=== PATIENT | male | born 1950 | race Caucasian/White ===

== ENCOUNTER → 2017-09-04 | Outpatient (CLI) | payer MEDICARE ==
[~2017-09-04] MED LIST: AMLO2.5T PO; LISI40TA PO; METF1000 PO; PLAV75TA29 PO; SIMV20TA PO
[2017-09-04 11:04] LABS: AUTOMATED NEUTROPHIL # 5.7 TH/MM3 (1.8-7.7); BASOPHIL # 0.1 TH/MM3 (0-0.2); BASOPHIL % 0.7 % (0.0-2.0); EOSINOPHIL # 0.3 TH/MM3 (0-0.4); EOSINOPHIL % 4.2 % (0.0-4.0); HEMATOCRIT 39.4 % (39.0-51.0); HEMO FLAGS DIFF FINAL; LYMPH % 19.6 % (9.0-44.0); LYMPHOCYTE # 1.6 TH/MM3 (1.0-4.8); MEAN CELL VOLUME 94.4 FL (80.0-100.0); MEAN CORPUSCULAR HEMOGLOBIN 32.1 PG (27.0-34.0); MONO % 5.5 % (0.0-8.0); PLATELET COUNT 251 TH/MM3 (150-450); RED BLOOD COUNT 4.18 MIL/MM3 (4.50-5.90); RED CELL DISTRIBUTION WIDTH 13.2 % (11.6-17.2); WHITE BLOOD COUNT 8.2 TH/MM3 (4.0-11.0)
[2017-09-04 11:12] LABS: BLOOD, URINE NEG (NEG); COMMENT (UR) CULT NOT INDICATED; CULTURE IF INDICATED CULT NOT INDICATED; GLUCOSE,URINE NEG (NEG); KETONE, URINE NEG (NEG); NITRITE,URINE NEG (NEG); PH, URINE 5.5 (5.0-8.5); URINE COLOR YELLOW (YELLW/STRAW)
[2017-09-04 11:17] LABS: APTT (PATIENT) 27.2 SEC (24.3-30.1); PROTHROMBIN TIME - PATIENT 10.5 SEC (9.8-11.6)
[2017-09-04 11:39] LABS: ALT (GPT) 25 U/L (12-78); ANION GAP 6 MEQ/L (5-15); AST (GOT) 13 U/L (15-37); BICARBONATE 30.1 MEQ/L (21.0-32.0); BLOOD UREA NITROGEN 22 MG/DL (7-18); CHLORIDE 104 MEQ/L (98-107); GLOMERULAR FILTRATION RATE 66 ML/MIN (>89); GLUCOSE,FASTING 133 MG/DL (74-99); POTASSIUM 4.1 MEQ/L (3.5-5.1); SODIUM (NA) 140 MEQ/L (136-145)
[2017-09-04 11:40] LABS: ALKALINE PHOSPHATASE 102 U/L (45-117); TOTAL BILIRUBIN ADULT 0.4 MG/DL (0.2-1.0)
--- NOTE | 2017-09-04 12:26 | RADRPT ---
EXAM DATE/TIME: 09/04/2017 12:07 [place] COMPARISON: No previous studies available for comparison. INDICATIONS : Pre-op. Colon Resection MEDICAL HISTORY : None. SURGICAL HISTORY : None. ENCOUNTER: Initial ACUITY: 1 day PAIN SCORE: 0/10 LOCATION: Bilateral chest FINDINGS: PA and lateral views of the chest demonstrate the lungs to be symmetrically aerated without evidence of mass, infiltrate or effusion. The cardiomediastinal contours are unremarkable. Evidence of previo us cardiothoracic surgery. Osseous structures are intact. CONCLUSION: No acute disease. Sukhdeep Rubio MD on September 04, 2017 at 12:25 Board Certified Radiologist. This report was verified electronically.
--- NOTE | 2017-09-05 10:05 | EKG ---
Date Performed: 09/04/2017 Time Performed: 10:58:51 PTAGE: 66 years EKG: Sinus rhythm MARKED LEFT AXIS DEVIATION INTRAVENTRICULAR CONDUCTION DELAY ABNORMAL ECG NO PREVIOUS TRACING DOCTOR: Brayden Ramirez Interpretating Date/Time 09/05/2017 10:05:06
== END ==
LOC: CPRE 10:31
PROVIDERS: ATTEND Colon & Rectal Surgery
DX: Z01.810 Encounter for preprocedural cardiovascular examination (principal); Z01.811 Encounter for preprocedural respiratory examination; Z01.812 Encounter for preprocedural laboratory examination; Z79.01 Long term (current) use of anticoagulants; C20 Malignant neoplasm of rectum; R94.31 Abnormal electrocardiogram [ECG] [EKG]
CPT/HCPCS: 36415; 71020; 80053; 81001; 82378; 85025; 85610; 85730; 93005

== ENCOUNTER 2017-09-11 10:35 | Inpatient (IN) | payer MEDICARE ==
[~2017-09-11] VITALS: Ht 180.3 cm; Wt 75.6 kg
[2017-09-11] MEDS ORDERED: MIDAZOLAM HCL 2 MG/2 ML VIAL IV ONE (12:00)
[2017-09-11] MEDS ORDERED: ROCURONIUM INJ 50 MG/5 ML SYRINGE IV PUSH ONE (12:00)
[2017-09-11] MEDS ORDERED: LACTATED RINGER'S 1000 ML INJ 1,000 ML IV ONE (12:00)
[2017-09-11] MEDS ORDERED: ePHEDrine/NS 25 MG/5 ML SYR IV ONE (12:00)
[2017-09-11] MEDS ORDERED: DEXAMETHASONE SOD PHOS 4 MG/ML VIAL IV ONE (12:00)
[2017-09-11] MEDS ORDERED: NORMOSOL R INJ 3,000 ML IV ONE (12:00)
[2017-09-11] MEDS ORDERED: LIDOCAINE HCL 1% PF 5 ML AMPULE OTHER ONE (12:00)
[2017-09-11] MEDS ORDERED: PROPOFOL 200 MG/20 ML AMP IV ONE (12:00)
[2017-09-11] MEDS ORDERED: ONDANSETRON HCL 4 MG/2 ML VIAL IV PUSH ONE (12:00)
[2017-09-11] MEDS ORDERED: LACTATED RINGER'S 1000 ML IV PRN (12:15)
[2017-09-11] MEDS ORDERED: INSULIN HUMAN REGULAR 1,000 UNITS/10 ML VIAL SQ PRN (12:15)
[2017-09-11] MEDS ORDERED: METOPROLOL TARTRATE 25 MG TAB PO PRN (12:15)
[2017-09-11] MEDS ORDERED: SODIUM CHLORID 0.9% 500 ML IV PRN (12:15)
[2017-09-11] MEDS ORDERED: POVIDONE IODINE 5% (ANTISEPSIS KIT) 4 APPLICATIONS EACH NARE PRN (12:15)
[2017-09-11] MEDS ORDERED: CHLORHEXIDINE GLUCONATE 2 % 1 PACK (2 CLOTHS) TOPICAL PRN (12:15)
[2017-09-11] MEDS ORDERED: ceFAZolin 1,000 MG/NS 100 ML IV SCH ×2 (12:30)
[2017-09-11] MEDS ORDERED: DEXT 5%-NACL 0.9% 1000 ML INJ 1,000 ML IV SCH (12:30)
[2017-09-11] MEDS ORDERED: ALVIMOPAN 12 MG CAPSULE - On Call PO SCH (12:30)
[2017-09-11] MEDS ORDERED: METRONIDAZOLE 500 MG/100 ML ISONTONIC SOLN IV SCH (12:30)
--- NOTE | 2017-09-11 13:05 | PD.HP.UP ---
H&P Update Note The Pre-Admit History and Physical Examination regarding the above named patient was reviewed (including, but not limited to, vital signs, heart, lungs, co-morbid conditions), and upon re-examination it is noted that: the patient's condition has not significantly changed since the last examination. Jose Lane MD Sep 11, 2017 13:05
[2017-09-11] MEDS ORDERED: BUPIVACAINE HCL PF 0.5% 30 ML VIAL ONE ×5 (13:56→13:58)
[2017-09-11] MEDS ORDERED: ACETAMINOPHEN 1000 MG/100 ML 100 ML IV ONE (15:07)
[2017-09-11] MEDS ORDERED: HYDROmorphone HCL PF 2 MG/ML VIAL ONE (15:07)
[2017-09-11] MEDS ORDERED: SUGAMMADEX SODIUM 200 MG/2 ML VIAL IV PUSH ONE ×2 (15:07)
--- NOTE | 2017-09-11 15:35 | PD.OP ---
Operative Report Date of Surgery: Sep 11, 2017 Preoperative Diagnosis: rectal cancer with history of prostate cancer Postoperative Diagnosis: Same Procedure: Cystoscopy with bilateral ureteral catheter placement Anesthesia: ELIU Surgeon: JeanC laude Henson Otolaryngology Teacher(s): None Resident Surgeon: None Operation and Findings: 66-year-old male with diagnosis of rectal cancer and prostate cancer. Patient was undergoing for to her laparotomy with resection by Dr. Lane. Request for made for bilateral ureteral catheter placement. The patient was brought to the operating room placed in the dorsal lithotomy position. He was prepped and draped in usual sterile fashion, received preprocedure antibiotics and general endotracheal anesthesia was administered. 20 Yemeni scope was inserted in the bladder and the left ureteral orifice was identified for Yemeni opening catheter was inserted in the left ureteral orifice. This was repeated on the right side without difficulty. 16 Yemeni Greco was inserted and the catheters were attached to the Greco. He tolerated the procedure well. Jean Claude Henson DO Sep 11, 2017 15:35
[2017-09-11] MEDS ORDERED: BENZOCAINE 6 MG/MENTHOL 10 MG LOZENGE BUCCAL PRN (17:15)
[2017-09-11] MEDS ORDERED: ENALAPRILAT 2.5 MG/2 ML VIAL IV PUSH PRN (17:15)
[2017-09-11] MEDS ORDERED: ACETAMINOPHEN/HYDROcodone 325 MG/5 MG TAB PO PRN (17:15)
[2017-09-11] MEDS ORDERED: ONDANSETRON HCL 4 MG/2 ML VIAL IV PUSH PRN (17:15)
[2017-09-11] MEDS ORDERED: POTASSIUM CHLOR 40 MEQ PREMIX 100 ML IV PRN (17:15)
[2017-09-11] MEDS ORDERED: NALOXONE HCL 0.4 MG/ML AMP IV PUSH PRN (17:15)
[2017-09-11] MEDS ORDERED: SODIUM CHLORIDE 0.9% FLUSH 5 ML FLUSH IVF PRN (17:15)
[2017-09-11] MEDS ORDERED: POTASSIUM CHLOR 20 MEQ PREMIX 100 ML IV PRN (17:15)
[2017-09-11] MEDS ORDERED: ACETAMINOPHEN 325 MG TAB PO PRN (17:15)
[2017-09-11] MEDS ORDERED: Post-op Orders (for Pharmacy) MISC XX ONE (17:15)
--- NOTE | 2017-09-11 17:15 | HHI.PR ---
Immediate Post Op Note Procedure Date: Sep 11, 2017 Pre Op Diagnosis: Rectal cancer Post Op Diagnosis: same Surgeon: Jose Lane Outdoor Landscape Architect(s): Marcelo Procedure: Expl lap + APR, omental flap Findings: ulcerated cancer ant rectal wall, sign RT fibrosis along prostate plane liver/GB normal Complications: none Specimen(s) removed: rectaosigm/anal canal Estimated blood loss: 200cc Anesthesia: General Drains: None, [place] IVF Patient to: PACU Patient Condition: Good Jose Lane MD Sep 11, 2017 17:15
[2017-09-11] MEDS ORDERED: HYDROmorphone HCL PF 1 MG/ML VIAL ONE (17:27)
[2017-09-11] MEDS ORDERED: MORPHINE SULFATE 30 MG/30 ML PCA ONE (17:36)
[2017-09-11] MEDS ORDERED: *morphine SULFATE 8 MG/ML PERIprocedure ONLY ONE ×2 (17:37→17:47)
[2017-09-11] MEDS: D5-NS + KCL 20 MEQ INJ 1,000 ML IV SCH ×2 (17:41→23:43)
[2017-09-11] MEDS: MORPHINE SULFATE 30 MG/30 ML PCA IV SCH (17:42)
[2017-09-11] MEDS ORDERED: PILL SPLITTER OTHER PRN (17:45)
[2017-09-11] MEDS ORDERED: MORPHINE SULFATE 8 MG/ML INJ ONE (17:56)
[2017-09-11] MEDS ORDERED: *HYDROmorphone PF 1 MG VIAL PERIprocedural Use ONLY ONE ×2 (18:09→18:22)
[2017-09-11] MEDS ORDERED: *ENALAPRILAT 1.25 MG/ML VIAL PERIprocedural Use ONLY ONE (18:23)
[2017-09-11] MEDS ORDERED: KETOROLAC TROMETHAMINE 30 MG/ML (IVP) VIAL IVP PRN (19:00)
[2017-09-11] MEDS ORDERED: BUPIVACAINE HCL PF 0.5% 30 ML VIAL NB SCH (19:00)
[2017-09-11 19:20] VITALS: BP 143/83; PULSE 87; PULSE 92; RESP 16; TEMP 98.1; O2SAT 98
[2017-09-11 20:15] VITALS: PULSE 86
[2017-09-11] MEDS: METOCLOPRAMIDE HCL 10 MG/2 ML VIAL IVS SCH (20:40)
[2017-09-11] MEDS: SODIUM CHLORIDE 0.9% FLUSH 5 ML FLUSH IVF SCH (20:40)
[2017-09-11 21:00] VITALS: PULSE 86
[2017-09-11 22:00] VITALS: PULSE 92
[2017-09-11] MEDS: PCA - TOTAL MG MORPHINE DELIVERED PER SHIFT SCH (22:00)
[2017-09-11 23:00] VITALS: PULSE 93
[2017-09-11] MEDS: metroNIDAZOLE 500 MG INJ 100 ML IV SCH (23:00)
[2017-09-11 23:15] VITALS: BP 157/81; PULSE 93; RESP 16; TEMP 97.9; O2SAT 97
[2017-09-11] MEDS: ENALAPRILAT 1.25 MG/ML VIAL IV PUSH PRN (23:24)
[2017-09-12] VITALS (24 sets, daily range): BP systolic 155–168; BP diastolic 81–93; PULSE 82–98; RESP 17–19; TEMP 97.4–98.2; O2SAT 93–99
[2017-09-12 05:17] LABS: AUTOMATED NEUTROPHIL # 15.3 TH/MM3 (1.8-7.7); BASOPHIL % 0.1 % (0.0-2.0); HEMATOCRIT 40.3 % (39.0-51.0); HEMO FLAGS DIFF FINAL; LYMPH % 2.9 % (9.0-44.0); LYMPHOCYTE # 0.5 TH/MM3 (1.0-4.8); MEAN CELL VOLUME 95.6 FL (80.0-100.0); MEAN CORPUSCULAR HEMOGLOBIN 31.8 PG (27.0-34.0); MEAN CORPUSCULAR HGB CONC 33.3 % (32.0-36.0); MONO % 4.5 % (0.0-8.0); NEUT % 92.5 % (16.0-70.0); PLATELET COUNT 262 TH/MM3 (150-450); RED BLOOD COUNT 4.22 MIL/MM3 (4.50-5.90); RED CELL DISTRIBUTION WIDTH 13.4 % (11.6-17.2); WHITE BLOOD COUNT 16.5 TH/MM3 (4.0-11.0)
[2017-09-12 05:43] LABS: POTASSIUM 4.1 MEQ/L (3.5-5.1)
[2017-09-12] MEDS: PCA - TOTAL MG MORPHINE DELIVERED PER SHIFT SCH ×3 (05:58→21:47)
[2017-09-12] MEDS: metroNIDAZOLE 500 MG INJ 100 ML IV SCH ×2 (06:22→15:48)
[2017-09-12] MEDS: METOCLOPRAMIDE HCL 10 MG/2 ML VIAL IVS SCH ×2 (08:32→20:40)
[2017-09-12] MEDS: PANTOPRAZOLE SODIUM 40 MG VIAL IVP SCH (08:34)
[2017-09-12] MEDS: PANTOPRAZOLE SOD 40 MG DELAYED RELEASE TAB PO SCH (08:34)
[2017-09-12] MEDS: SODIUM CHLORIDE 0.9% FLUSH 5 ML FLUSH IVF SCH ×2 (08:40→20:40)
[2017-09-12] MEDS: ALVIMOPAN 12 MG CAPSULE - Post-op dosing PO SCH ×2 (08:44→20:40)
[2017-09-12] MEDS: amLODIPine BESYLATE 5 MG TAB PO SCH (08:44)
[2017-09-12] MEDS: LISINOPRIL 20 MG TAB PO SCH (08:45)
[2017-09-12] MEDS: D5-NS + KCL 20 MEQ INJ 1,000 ML IV SCH (08:46)
[2017-09-12] MEDS: MORPHINE SULFATE 30 MG/30 ML PCA IV SCH (08:50)
--- NOTE | 2017-09-12 12:08 | HHI.PR ---
Subjective Remarks C/R Surg POD #1 afebrile, VSS UO Good [place] min Objective - Vital Signs Date Time Temp Pulse Resp B/P (MAP) Pulse Ox O2 Delivery O2 Flow Rate FiO2 09/12/17 11:04 86 18 155/82 (106) 95 09/12/17 07:12 Nasal Cannula 1.00 09/12/17 07:00 98.2 Result Diagram: 09/12/176 09/12/17435 Objective Remarks PE alert Abd - soft, flat, stoma pink, HP mod A/P Assessment and Plan Imp: Stable post-op OOB decr IVF stent dc'd tx to floor Jose Lane MD Sep 12, 2017 12:08
[2017-09-12] MEDS ORDERED: DEXTROSE 50% IN WATER 50 ML VIAL(D50) IV PUSH PRN (12:15)
[2017-09-12] MEDS ORDERED: GLUCAGON 1 MG/ML VIAL OTHER PRN (12:15)
[2017-09-12] MEDS: NS + KCL 20 MEQ INJ 1,000 ML IV SCH ×2 (12:21→23:47)
--- NOTE | 2017-09-12 13:21 | MP ---
cc: HILARY GARCIA M.D. DATE OF SURGERY: September 11, 2017 PREOPERATIVE DIAGNOSIS Rectal cancer. PROCEDURE PERFORMED Exploratory laparotomy with abdominal perineal resection, omental flap. POSTOPERATIVE DIAGNOSIS Rectal cancer. SURGEON Dr. Garcia. CORPORATE LOGISTICS MANAGER Dr. Tony Robertson. PROCEDURE The patient was placed in the supine position. After adequate anesthesia sedation his legs were placed in [place] stirrups and supported appropriately. The abdomen and perineum were then prepped with Betadine solution and draped in usual sterile fashion. With Dr. Robertson's assistance the abdomen was opened through a midline incision. Exploration revealed a very looping redundant sigmoid colon. There was a tumor palpable below the perineal reflection anteriorly. Radiation fibrosis was also present in the pelvis. Proximal colon was palpated and felt to be pretty unremarkable. Small bowel was run from ligament of Treitz down to ileocecal valve and felt to be normal. Stomach and duodenum were unremarkable. Liver had no palpable masses and the gallbladder was empty but distended. Great vessels were of normal caliber and only slightly calcified. First the sigmoid colon was mobilized medially by dividing along the white line of Toldt. The left ureter was identified and carefully preserved. Dissection then proceeded up the left gutter taking the left colon off the retroperitoneum up to and around the area of the splenic flexure. The right retroperitoneal space was then opened and the bowel dissected off the presacral fascia preserving the presacral nerves. The pedicle for the superior hemorrhoidal vessel was identified and divided between Idalia's obtaining hemostasis with Vicryl ties. Dissection then proceeded down into the pelvis mobilizing the bowel off the presacral fascia toward the pelvic floor. The lateral rectal stalks were taken with electrocautery. The pelvic floor muscles were incised and the bowel mobilized up out of the anal canal as far distally as possible. Anteriorly there was quite a bit of fibrosis between the anterior rectal wall where the rectal tumor was and the seminal vesicles and the prostate capsule. Required somewhat of a tedious dissection to get below this area. The bowel did not appear to be very soft and somewhat fibrotic from years of radiation change. Therefore, it was determined distal margin below the tumor was difficult and anastomosis would probably not be possible. For that reason Dr. Robertson went to the perineal aspect of the patient and completed the proctectomy by making elliptical incision around the anal sphincter, taking the dissection through the ischiorectal spaces, entering the pelvis at the tip of the coccyx and then completing the proctectomy taking the lateral attachments with electrocautery anteriorly, somewhat difficult dissection taking the anterior rectal wall off the prostatic capsule in the region of the tumor. The bowel was then divided in the midsigmoid colon using the ROBINSON stapling device. The remaining mesenteric attachments taken between Idalia's, obtaining hemostasis with Vicryl ties and the specimen delivered through the perineal incision. Abdomen was then irrigated copiously with normal saline. Dr. Robertson closed the perineal incision in several layers using interrupted Vicryl sutures for the muscles and then the subcu tissues as well as subcuticular closure for the skin. Next, the omentum was taken off the transverse colon, entering the lesser sac and making a long flap out of the omentum to reach the pelvis, there was quite a bit of omentum to fill the pelvis quite nicely. The pelvis was then irrigated again and hemostasis achieved. Circular stab wound was created in the left side of the abdomen and the end of the sigmoid colon brought up through the stab wound without tension and with good blood supply. The midline incision was closed anatomically reapproximating the midline fascia with a running #1 PDS suture. The subcutaneous tissue was irrigated copiously and the skin closed with a running subcuticular Vicryl suture. Wound area was washed with normal saline and dried, sterile dressing of Telfa and gauze applied. Finally the ROBINSON staple line was removed from the end of the sigmoid colon and the stoma matured in the usual Indira fashion by placing a row of interrupted Chromic catgut sutures around the circumference. At completion the stoma did appear to be viable and was patent through the fascial level. Sterile colostomy appliance was fitted over the new stoma. The patient tolerated the procedure quite well and was brought to the recovery room in stable condition. Sponge and needle counts were correct at the end of the procedure. MD JOSH Mann/JAZMIN /12:22 PM /1:08 PM
[2017-09-12] MEDS: HEPARIN SODIUM - SQ 10,000 UNITS/ML VIAL SQ SCH (15:48)
--- NOTE | 2017-09-12 16:57 | PD.WCN.NOT ---
Wound Consult Description: Consult placed for New Ostomy Teaching of stoma per Dr Lane Communicated with: Patient Patients at bedside Recommendation: Empty pouch of effluent when 1/3-1/2 full and before bedtime Change appliance every 5-7 days and PRN Additional Information: Patient seen on for Ostomy teaching and assessment. Ostomy Type: Colostomy Surgeon: Jose Lane MD Date of Surgery: Sep 11, 2017 Complete: Education materials Educated patient on: Stoma appearance Stoma function Skin care Ostomy supplies Showering Changing the appliance Opening and closing the pouch Attaching the pouch to the wafer Additional information Patient seen on for Ostomy assessment and teaching. Colostomy noted to left lower quadrant of abdomen. Stoma is dark red, moist, edematous, moderately protruding, lumen noted in center with ~20ml sanguinous liquid noted in pouch. Barrier and wafer are intact. Educational materials were given and left in patient room for reading later. All questions were answered and encouraged to write down any questions that they may come up with so that we could discuss them tomorrow 09/13/17. Supplied were taken from the box provided for patient and his to practice with. Chiara Padilla [facility] Sep 12, 2017 16:57
[2017-09-12] MEDS: INSULIN NovoLIN REGULAR SUPPLEMENTAL SCALE SQ SCH ×2 (17:00→21:00)
[2017-09-12] MEDS ORDERED: ALVIMOPAN 12 MG CAPSULE PO SCH (21:00)
[2017-09-12] MEDS: ENALAPRILAT 1.25 MG/ML VIAL IV PUSH PRN (23:46)
[2017-09-13] VITALS (20 sets, daily range): BP systolic 152–168; BP diastolic 77–88; PULSE 75–101; RESP 16–19; TEMP 98.2–99.1; O2SAT 93–95
[2017-09-13] MEDS: HEPARIN SODIUM - SQ 10,000 UNITS/ML VIAL SQ SCH ×2 (04:20→16:03)
[2017-09-13] MEDS: ENALAPRILAT 1.25 MG/ML VIAL IV PUSH PRN (04:20)
[2017-09-13] MEDS: PCA - TOTAL MG MORPHINE DELIVERED PER SHIFT SCH ×3 (05:11→21:35)
[2017-09-13 05:33] LABS: AUTOMATED NEUTROPHIL # 13.6 TH/MM3 (1.8-7.7); BASOPHIL % 0.1 % (0.0-2.0); HEMATOCRIT 34.8 % (39.0-51.0); HEMO FLAGS DIFF FINAL; LYMPH % 5.6 % (9.0-44.0); LYMPHOCYTE # 0.9 TH/MM3 (1.0-4.8); MEAN CORPUSCULAR HEMOGLOBIN 31.6 PG (27.0-34.0); MEAN CORPUSCULAR HGB CONC 33.7 % (32.0-36.0); MONO % 6.3 % (0.0-8.0); PLATELET COUNT 243 TH/MM3 (150-450); RED CELL DISTRIBUTION WIDTH 13.6 % (11.6-17.2); WHITE BLOOD COUNT 15.5 TH/MM3 (4.0-11.0)
[2017-09-13 06:05] LABS: BICARBONATE 25.4 MEQ/L (21.0-32.0); POTASSIUM 3.5 MEQ/L (3.5-5.1)
--- NOTE | 2017-09-13 07:39 | HHI.PR ---
Subjective Remarks C/R Surg POD #2 afebrile, VSS UO Good [place] min stent dc'd Objective - Vital Signs Date Time Temp Pulse Resp B/P (MAP) Pulse Ox O2 Delivery O2 Flow Rate FiO2 09/13/17 07:00 94 09/13/17 05:11 18 09/13/17 03:00 98.3 160/88 (112) 93 09/12/17 07:12 Nasal Cannula 1.00 Result Diagram: 09/13/1744309/13/17443 Objective Remarks PE alert Abd - soft, flat, stoma pink, HP less wound clean/dry A/P Assessment and Plan Imp: OOB decr IVF stent dc'd tx to floor start PO Jose Lane MD Sep 13, 2017 07:39
[2017-09-13] MEDS: amLODIPine BESYLATE 5 MG TAB PO SCH (09:00)
[2017-09-13] MEDS: INSULIN NovoLIN REGULAR SUPPLEMENTAL SCALE SQ SCH ×4 (09:00→21:00)
[2017-09-13] MEDS: LISINOPRIL 20 MG TAB PO SCH (09:00)
[2017-09-13] MEDS: SODIUM CHLORIDE 0.9% FLUSH 5 ML FLUSH IVF SCH ×2 (09:00→21:00)
[2017-09-13] MEDS: PANTOPRAZOLE SOD 40 MG DELAYED RELEASE TAB PO SCH (09:00)
[2017-09-13] MEDS: ALVIMOPAN 12 MG CAPSULE - Post-op dosing PO SCH ×2 (09:00→21:37)
[2017-09-13] MEDS: METOCLOPRAMIDE HCL 10 MG/2 ML VIAL IVS SCH ×2 (09:01→21:34)
[2017-09-13] MEDS: PANTOPRAZOLE SODIUM 40 MG VIAL IVP SCH (09:01)
[2017-09-13] MEDS: NS + KCL 20 MEQ INJ 1,000 ML IV SCH ×3 (09:02→23:54)
[2017-09-13] MEDS: ACETAMINOPHEN/HYDROcodone 325 MG/5 MG TAB PO PRN ×3 (11:11→21:43)
--- NOTE | 2017-09-13 17:22 | PD.WCN.NOT ---
Wound Consult Description: Consult placed for New Ostomy Teaching of stoma per Dr Lane Communicated with: Patient Recommendation: Empty pouch of effluent when 1/3-1/2 full and before bedtime Change appliance every 5-7 days and PRN Additional Information: Patient seen on for Ostomy assessment, teaching, and appliance (wafer/ pouch) change. Ostomy Type: Colostomy Surgeon: Jose Lane MD Date of Surgery: Sep 11, 2017 Complete: Starter kit (Obtained verbal consent for [facility] starter kit to be sent to patient home), Education materials ([employer] box left in patient room for education and practice using supplies), Rx (Script left on chart), Other ( Appliance change with patient observing) Educated patient on: Measuring stoma Stoma appearance Changing appliance Cleansing skin around stoma with water Shaving with electric shaver Using skin prep Using stoma paste near incision line Warming wafer before and after application Open ended pouches vs closed ended pouches Additional information Patient seen on for ostomy assessment, teaching, and appliance change. Stoma located on left side abdomen is measuring 1 3/4" red, moist, edematous, moderately protruding, lumen noted in center towards 6 o'clock, mucocutaneous junction is noted with circumferential sutures in place with scant sanguinous drainage. Peristomal skin is unremarkable. Pouch had ~20ml sanguinous liquid and mucus noted that was emptied by copy writer. Wafer was removed, skin was cleansed with water only. Skin prep was applied to peristomal skin and allowed to dry. Stoma paste was used near midline incision to help further secure the wafer to abdomen. Patient will be seen Sunday09/14/17. Script was left on chart for case management and for discharge. Appliances in size 2 3/4" are not available at this time to send patient home with. Chiara Padilla [facility] Sep 13, 2017 17:22
[2017-09-14] VITALS (7 sets, daily range): BP systolic 128–169; BP diastolic 63–88; PULSE 66–96; RESP 16–22; TEMP 96.6–99.6; O2SAT 93–95
[2017-09-14] MEDS: ACETAMINOPHEN/HYDROcodone 325 MG/5 MG TAB PO PRN ×3 (05:30→18:13)
[2017-09-14] MEDS: HEPARIN SODIUM - SQ 10,000 UNITS/ML VIAL SQ SCH ×2 (05:30→16:55)
[2017-09-14] MEDS: PCA - TOTAL MG MORPHINE DELIVERED PER SHIFT SCH ×3 (05:32→20:56)
[2017-09-14] MEDS: PANTOPRAZOLE SOD 40 MG DELAYED RELEASE TAB PO SCH (09:00)
[2017-09-14] MEDS: SODIUM CHLORIDE 0.9% FLUSH 5 ML FLUSH IVF SCH ×2 (09:00→21:00)
[2017-09-14] MEDS: PANTOPRAZOLE SODIUM 40 MG VIAL IVP SCH (09:00)
[2017-09-14] MEDS: METOCLOPRAMIDE HCL 10 MG/2 ML VIAL IVS SCH (09:03)
[2017-09-14] MEDS: amLODIPine BESYLATE 5 MG TAB PO SCH (09:04)
[2017-09-14] MEDS: ALVIMOPAN 12 MG CAPSULE - Post-op dosing PO SCH ×2 (09:04→20:54)
[2017-09-14] MEDS: LISINOPRIL 20 MG TAB PO SCH (09:04)
[2017-09-14] MEDS: INSULIN NovoLIN REGULAR SUPPLEMENTAL SCALE SQ SCH ×4 (09:06→20:56)
[2017-09-14] MEDS: NS + KCL 20 MEQ INJ 1,000 ML IV SCH (13:33)
--- NOTE | 2017-09-14 15:04 | PD.WCN.NOT ---
Wound Consult Description: Consult placed for New Ostomy Teaching of stoma per Dr Lane Communicated with: Patient Patient at bedside QUOC Alan SHRIMP CLEANER Recommendation: Empty pouch of effluent when 1/3-1/2 full and before bedtime Change appliance every 5-7 days and PRN Additional Information: Patient seen earlier today*Late entry* Ostomy Type: Colostomy Surgeon: Jose Lane MD Date of Surgery: Sep 11, 2017 Complete: Starter kit (Obtained verbal consent for [facility] starter kit to be sent to patient home), Education materials ([employer] box left in patient room for education and practice using supplies), Rx (Script left on chart), Other ( Appliance change with patient observing) Educated patient on: Stoma size Stoma color and function Removing barrier with adhesive removal wipes Assessing back side of wafer Assessing peristomal skin for breakdown Measuring stoma for correct use of appliance Warming barrier prior to application by placing under arm or thigh with plastic still in place Applying barrier to abdomen and then applying closed pouch to barrier Emptying pouch when 1/3- 1/2 full, before bedtime, and first thing in the morning Setting alarm for mid way through the night to check on appliance for air and stool Using resources available for obtaining appliances, trouble shooting, and any questions they may have regarding stoma/peristomal skin care Additional information Patient seen on for ostomy assessment and teaching. Upon entering room, patient gown was soiled with a light brown exudate. Gown was lifted with patient at bedside and the drain located on the anterior lower abdomen was covered in a soaked dressing. The drain was pulled from his gown pocket and found to be full. QUOC Alan was called and notified of the soaked dressing and full bulb which was emptied by ticket writer and left in bathroom for I&O's. SHRIMP CLEANER came in and emptied the bulb again as it was quickly filling. Stoma was assessed and barrier was intact with some sanguinous drainage noted to be dried on the bottom part and edge of the surrounding tape located around the barrier. Appliance was just changed yesterday and assessed today and found to be intact. It was explained that the tape could be cut away so that the entire appliance did not need to be changed again. Stoma size is measuring 1 3/4" requiring a wafer size of 2 3/4" however the supplies are on back order and none are available at this time. Supplies will have to be obtained through the home health care agency as there are no supplies to send home with patient at this time. There was a kit sent to the patient home with 3 wafers and 3 pouches that will be delivered via 2 day air. 4" cut to fit appliance ordered should the wafer need to be changed prior to discharge. Chiara Padilla [facility] Sep 14, 2017 15:04
--- NOTE | 2017-09-14 19:19 | HHI.FF ---
Face to Face Verification Diagnosis: (1) Rectal cancer Physical Therapy Order: Evaluate and Treat, Improve ambulation, Strength and gait training Home Health Nursing Order: Medical education Signs/symptoms of disease process Wound care and dressing changes Instructions: stoma teaching I have seen patient Ethan Dowell on 09/14/17. My clinical findings support the need for the requested home health care services because: Deconditioned w/ increased weakness Need for psychosocial assistance Infection w/ risk of complications I certify that my clinical findings support that this patient is homebound because: Post-op weakness Unsafe to leave home unassisted Need for psychosocial assistance Jose Lane MD Sep 14, 2017 19:19
[2017-09-14] MEDS ORDERED: METOCLOPRAMIDE HCL 10 MG/2 ML VIAL IVS PRN (19:30)
--- NOTE | 2017-09-14 22:54 | HHI.PR ---
Subjective Remarks C/R Surg POD #3 afebrile, VSS UO Good [place] min stoma working Objective - Vital Signs Date Time Temp Pulse Resp B/P (MAP) Pulse Ox O2 Delivery O2 Flow Rate FiO2 09/14/17 20:57 98.6 96 18 169/88 (115) 95 09/12/17 07:12 Nasal Cannula 1.00 Result Diagram: 09/13/1744309/13/17443 Objective Remarks PE alert Abd - soft, flat, stoma pink, [place] less wound clean/dry A/P Assessment and Plan Imp: OOB decr IVF start PO path discussed Jose Lane MD Sep 14, 2017 22:54
[2017-09-15] VITALS: BP 152/95; PULSE 84; RESP 18; TEMP 99.1; O2SAT 93
[2017-09-15] MEDS: NS + KCL 20 MEQ INJ 1,000 ML IV SCH ×2 (03:43→20:27)
[2017-09-15] MEDS: HEPARIN SODIUM - SQ 10,000 UNITS/ML VIAL SQ SCH ×2 (03:45→17:00)
[2017-09-15 04:00] VITALS: BP 163/93; PULSE 83; RESP 18; TEMP 98.4; O2SAT 94
[2017-09-15] MEDS: PCA - TOTAL MG MORPHINE DELIVERED PER SHIFT SCH ×3 (04:58→20:33)
[2017-09-15 08:00] VITALS: BP 128/70; PULSE 75; RESP 18; TEMP 96; O2SAT 94
[2017-09-15] MEDS: INSULIN NovoLIN REGULAR SUPPLEMENTAL SCALE SQ SCH ×4 (08:35→20:45)
[2017-09-15] MEDS: SODIUM CHLORIDE 0.9% FLUSH 5 ML FLUSH IVF SCH ×2 (08:36→20:34)
[2017-09-15] MEDS: PANTOPRAZOLE SOD 40 MG DELAYED RELEASE TAB PO SCH (08:38)
[2017-09-15] MEDS: LISINOPRIL 20 MG TAB PO SCH (08:46)
[2017-09-15] MEDS: ALVIMOPAN 12 MG CAPSULE - Post-op dosing PO SCH ×2 (08:46→20:33)
[2017-09-15] MEDS: PANTOPRAZOLE SODIUM 40 MG VIAL IVP SCH (08:46)
[2017-09-15] MEDS: amLODIPine BESYLATE 5 MG TAB PO SCH (08:47)
[2017-09-15 12:00] VITALS: BP 124/78; PULSE 84; RESP 17; TEMP 95.8; O2SAT 95
[2017-09-15 16:00] VITALS: BP 141/77; PULSE 77; RESP 17; TEMP 97.8; O2SAT 93
[2017-09-15 20:00] VITALS: BP 148/80; PULSE 75; RESP 20; TEMP 99.4; O2SAT 95
[2017-09-15] MEDS: ACETAMINOPHEN/HYDROcodone 325 MG/5 MG TAB PO PRN (20:33)
[2017-09-16] VITALS: BP 106/71; PULSE 83; RESP 18; TEMP 98.4; O2SAT 96
[2017-09-16] MEDS: HEPARIN SODIUM - SQ 10,000 UNITS/ML VIAL SQ SCH (04:57)
[2017-09-16] MEDS: PCA - TOTAL MG MORPHINE DELIVERED PER SHIFT SCH (04:59)
[2017-09-16 08:00] VITALS: BP 152/82; PULSE 69; RESP 17; TEMP 96.8; O2SAT 95
[2017-09-16] MEDS: SODIUM CHLORIDE 0.9% FLUSH 5 ML FLUSH IVF SCH (09:00)
[2017-09-16] MEDS: ALVIMOPAN 12 MG CAPSULE - Post-op dosing PO SCH (09:49)
[2017-09-16] MEDS: PANTOPRAZOLE SOD 40 MG DELAYED RELEASE TAB PO SCH (09:49)
[2017-09-16] MEDS: INSULIN NovoLIN REGULAR SUPPLEMENTAL SCALE SQ SCH (09:49)
[2017-09-16] MEDS: LISINOPRIL 20 MG TAB PO SCH (09:50)
[2017-09-16] MEDS: amLODIPine BESYLATE 5 MG TAB PO SCH (09:50)
[2017-09-16] MEDS: PANTOPRAZOLE SODIUM 40 MG VIAL IVP SCH (09:52)
== END 2017-09-16 13:04 | disposition home health service (06) | DRG 331 ==
LOC: HSDI 11:46 → HCPC 19:05 → N07B 09-14 01:28
PROVIDERS: ADMIT Colon & Rectal Surgery; ATTEND Colon & Rectal Surgery
PROC: 0DTQ0ZZ Resection of Anus, Open Approach (ICD-10-PCS; 2017-09-11)
PROC: 0D1N0Z4 Bypass Sigmoid Colon to Cutaneous, Open Approach (ICD-10-PCS; 2017-09-11)
PROC: 0WUF07Z Supplement Abdominal Wall with Autologous Tissue Substitute, Open Approach (ICD-10-PCS; 2017-09-11)
PROC: 0T788DZ Dilation of Bilateral Ureters with Intraluminal Device, Via Natural or Artificial Opening Endoscopic (ICD-10-PCS; 2017-09-11)
PROC: 0DTP0ZZ Resection of Rectum, Open Approach (ICD-10-PCS; principal; 2017-09-11 14:45)
PROC: 0DTN0ZZ Resection of Sigmoid Colon, Open Approach (ICD-10-PCS; 2017-09-11 14:45)
DX: C20 Malignant neoplasm of rectum (principal); I10 Essential (primary) hypertension; Z85.46 Personal history of malignant neoplasm of prostate; E78.5 Hyperlipidemia, unspecified; I25.10 Atherosclerotic heart disease of native coronary artery without angina pectoris; E11.9 Type 2 diabetes mellitus without complications; K63.89 Other specified diseases of intestine; Z95.5 Presence of coronary angioplasty implant and graft; Z79.84 Long term (current) use of oral hypoglycemic drugs; Z87.891 Personal history of nicotine dependence; Z95.1 Presence of aortocoronary bypass graft; Y84.2 Radiological procedure and radiotherapy as the cause of abnormal reaction of the patient, or of later complication, without mention of misadventure at the time of the procedure; Z92.3 Personal history of irradiation
CPT/HCPCS: 80048; 82948; 85025; 86850; 86900; 86901; 88309; 94150; C1769; C9113; J0131; J0690; J1100; J1170; J1644; J2250; J2270; J2405; J2765; J3010; J3480; J7120

== ENCOUNTER 2018-05-09 10:13 | Inpatient (IN) ==
--- NOTE | 2018-05-09 11:38 | ED ---
HPI General Chief Complaint: Respiratory Symptoms Stated Complaint: SOB Time Seen by Provider: 05/09/18 11:32 Source: patient Mode of arrival: ambulatory Limitations: no limitations History of Present Illness The patient is a 67-year-old male who presents to the emergency department for shortness of breath. The patient states he has had recent shortness of breath that is worse with lying supine as well as exacerbated by exertion. The patient had a recent outpatient CT of the chest which revealed bilateral pleural effusions, right greater than the left. The patient also had a CT of his abdomen and pelvis which revealed recurrent rectal cancer with possible metastasis to liver. The patient states he underwent surgery for rectal cancer in August 2017 by his colorectal surgeon, Dr. Lane. The patient states that he was notified to come to the emergency department for admission for drainage of the right pleural effusion and possible biopsy of the recurrent rectal mass. The patient denies any previous history congestive heart failure or pleural effusions. He does note shortness of breath worse with exertion and lying supine. He denies any significant cough or anterior chest pain. He denies any nausea or vomiting. He does have a diverting colostomy. The patient is followed by his rectal surgeon, Dr. Lane, as well as his primary physician, Dr. Eleanor May. Complaint: shortness of breath Onset (ago): day(s) Context: occurred during exertion Severity: moderate Consistency/Duration: progressively worsening Relieving factors: nothing Exacerbating factors: lying flat Associated symptoms: orthopnea Treatment prior to arrival: none Related Data Home Medications Medication Instructions Recorded Confirmed clopidogrel [Plavix] 75 mg PO DAILY 05/09/18 05/09/18 metformin 1,000 mg PO BID 05/09/18 05/09/18 simvastatin 20 mg PO QPM 05/09/18 05/09/18 Allergies Allergy/AdvReac Type Severity Reaction Status Date / Time No Known Allergies Allergy Verified 05/09/18 11:25 Review of Systems Except as stated in HPI: all other systems reviewed are negative Constitutional Denies fever(s) Cardiovascular Denies chest pain, Reports dyspnea on exertion and Reports orthopnea Respiratory Reports dyspnea Gastrointestinal Denies abdominal pain, Denies nausea, Denies vomiting and Reports other ( Diverting colostomy from previous surgery for rectal carcinoma) PMFSH Medical History Medical History Brain tumor (Acute) CVA (cerebral vascular accident) (Acute) Colostomy in place (Acute) Hyperlipidemia (Acute) Hypertension (Acute) Prostate cancer (Acute) Rectal cancer (Acute) Type 2 diabetes mellitus (Acute) Surgical History Surgical History H/O resection of rectum (Acute) S/P triple vessel bypass (Acute) Social History Social History Substance History: No History of Abuse Smoking Status: Former smoker How Often Do You Have a Drink Containing Alcohol: Monthly or less Recent Travel in [facility] within the Last 8 Weeks: No Recent Out of Country Travel within the Last 8 Weeks: No Immunization History Tetanus Immunization: >5 Years Exam Narrative Exam Narrative: GENERAL: Awake, alert, very pleasant 67-year-old male who appears his stated age and is in no acute respiratory distress. SKIN: Focused skin assessment warm/dry. HEAD: Atraumatic. Normocephalic. EYES: No injection or drainage. ENT: No nasal bleeding or discharge. Mucous membranes pink and moist. NECK: Trachea midline. No JVD. CARDIOVASCULAR: Regular rate and rhythm. No murmur appreciated. Well-healed sternal scar. RESPIRATORY: No accessory muscle use. Diminished breath sounds in the right base. Slightly diminished breath sounds left base with rhonchi. GASTROINTESTINAL: Abdomen soft, diverting colostomy noted. Abdomen soft. MUSCULOSKELETAL: No obvious deformities. No clubbing. No cyanosis. No edema. Well-healed scar lower extremity, possibly from vein harvesting. NEUROLOGICAL: Awake and alert. No obvious cranial nerve deficits. Motor grossly within normal limits. Normal speech. PSYCHIATRIC: Appropriate mood and affect; insight and judgment normal. Course Consultations Consultation #1: I discussed the patient with Dr. Lane who requested admission to his service in consultation to Dr. Marmolejo. Time: 11:45 Initial Documented Vital Signs Temperature 97.5 F L 05/09/18 10:21 Pulse Rate 74 05/09/18 10:21 Respiratory Rate 16 05/09/18 10:21 Blood Pressure 117/68 05/09/18 10:21 Pulse Oximetry 97 05/09/18 10:21 Last Documented Vital Signs Temperature 97.5 F L 05/09/18 10:21 Pulse Rate 72 05/09/18 11:33 Respiratory Rate 17 05/09/18 11:33 Blood Pressure 142/88 H 05/09/18 11:33 Pulse Oximetry 95 05/09/18 11:33 Medical Decision Making MDM Narrative Medical decision making narrative: IV was established, labs are drawn and sent, and the patient was placed on cardiac telemetry monitoring and continuous pulse oximetry monitoring. I went to radiology, I was able to see the formal readings of the CT chest and abdomen/pelvis that was performed earlier this month. The patient did have bilateral pleural effusions, right greater than the left. He appear to have a recurrent perirectal mass with possible liver metastasis. Therefore, chest x-ray was obtained. I placed a call to Dr. Lane 's office and spoke with the nurse who advises the patient should be off of his Plavix for possible biopsy. The patient is also scheduled for thoracentesis tomorrow at 8 AM, this may be done sooner by interventional radiology. The patient stopped taking his Plavix last Sunday, he is advised not to take Plavix for possible upcoming procedures. The patient is agreeable. I discussed the patient with Dr. Lane at 11:45 AM who requested admission to his service with consultation to Dr. Marmolejo. I placed orders for interventional radiology to perform ultrasound-guided thoracentesis with fluid cell count Differential Diagnosis Differential Diagnosis: Differential diagnosis includes rectal carcinoma with metastasis, malignant pleural effusion, transudate of pleural effusion, exudative pleural effusion, congestive heart failure, cardiomyopathy, pneumonia with parapneumonic effusion, pulmonary metastasis. Lab Data Result diagrams: 05/09/18 11:30 05/09/18 11:30 Lab Results 05/09/18 05/09/18 05/09/18 Range/Units 11:30 11:30 11:30 WBC 6.7 (4.0-11.0) th/mm3 RBC 4.03 L (4.50-5.90) mil/mm3 Hgb 12.9 L (13.0-17.0) gm/dL Hct 37.2 L (39.0-51.0) % MCV 92.5 (80.0-100.0) fL MCH 32.1 (27.0-34.0) pg MCHC 34.7 (32.0-36.0) % RDW 13.9 (11.6-17.2) % Plt Count 257 (150-450) th/mm3 MPV 8.2 (7.0-11.0) fL Neut % (Auto) 62.7 (16.0-70.0) % Lymph % (Auto) 20.9 (9.0-44.0) % [place] % (Auto) 8.0 (0.0-8.0) % Eos % (Auto) 6.7 H (0.0-4.0) % Baso % (Auto) 1.7 (0.0-2.0) % Neut # (Auto) 4.2 (1.8-7.7) th/mm3 Lymph # (Auto) 1.4 (1.0-4.8) th/mm3 [place] # (Auto) 0.5 (0.0-0.9) th/mm3 Eos # (Auto) 0.5 H (0.0-0.4) th/mm3 Baso # (Auto) 0.1 (0.0-0.2) th/mm3 WBC Differential . Differential Comment Auto diff final PT 10.6 (9.8-11.6) sec INR 1.0 Ratio APTT 26.8 (24.3-30.1) sec Sodium 142 (136-145) meq/L Potassium 3.6 (3.5-5.1) meq/L Chloride 106 (98-107) meq/L Carbon Dioxide 26.4 (21.0-32.0) meq/L Anion Gap 10 (5-15) meq/L BUN 25 H (7-18) mg/dL Creatinine 1.29 (0.60-1.30) mg/dL Estimated GFR 56 L (>89) mL/min Random Glucose 153 H (74-106) mg/dL Calcium 9.0 (8.5-10.1) mg/dL Magnesium 2.1 (1.5-2.5) mg/dL Total Bilirubin 0.5 (0.2-1.0) mg/dL AST 21 (15-37) U/L ALT 32 (12-78) U/L Alkaline Phosphatase 118 H (45-117) U/L Troponin I 0.03 (0.02-0.05) ng/mL B-Natriuretic Peptide (0-100) pg/mL Total Protein 7.2 (6.4-8.2) g/dL Albumin 3.9 (3.4-5.0) g/dL 05/09/18 Range/Units 11:30 WBC (4.0-11.0) th/mm3 RBC (4.50-5.90) mil/mm3 Hgb (13.0-17.0) gm/dL Hct (39.0-51.0) % MCV (80.0-100.0) fL MCH (27.0-34.0) pg MCHC (32.0-36.0) % RDW (11.6-17.2) % Plt Count (150-450) th/mm3 MPV (7.0-11.0) fL Neut % (Auto) (16.0-70.0) % Lymph % (Auto) (9.0-44.0) % [place] % (Auto) (0.0-8.0) % Eos % (Auto) (0.0-4.0) % Baso % (Auto) (0.0-2.0) % Neut # (Auto) (1.8-7.7) th/mm3 Lymph # (Auto) (1.0-4.8) th/mm3 [place] # (Auto) (0.0-0.9) th/mm3 Eos # (Auto) (0.0-0.4) th/mm3 Baso # (Auto) (0.0-0.2) th/mm3 WBC Differential Differential Comment PT (9.8-11.6) sec INR Ratio APTT (24.3-30.1) sec Sodium (136-145) meq/L Potassium (3.5-5.1) meq/L Chloride (98-107) meq/L Carbon Dioxide (21.0-32.0) meq/L Anion Gap (5-15) meq/L BUN (7-18) mg/dL Creatinine (0.60-1.30) mg/dL Estimated GFR (>89) mL/min Random Glucose (74-106) mg/dL Calcium (8.5-10.1) mg/dL Magnesium (1.5-2.5) mg/dL Total Bilirubin (0.2-1.0) mg/dL AST (15-37) U/L ALT (12-78) U/L Alkaline Phosphatase (45-117) U/L Troponin I (0.02-0.05) ng/mL B-Natriuretic Peptide 867 H (0-100) pg/mL Total Protein (6.4-8.2) g/dL Albumin (3.4-5.0) g/dL Imaging Data Radiologist's impression: ITS Impressions Chest X-Ray 05/09/18 11:32 CONCLUSION: Status post CABG. Borderline heart enlargement. No evidence of significant congestion or consolidating airspace disease. Discharge Plan Discharge Disposition Patient Disposition: 30 Still Patient Discharge Condition Condition: Stable Discharge Details Diagnosis: Pleural effusion Physicians Team ED Provider: Margarito Gardiner Primary Care Provider: ZOË, Other Providers: Chema Marmolejo Rxs /Orders / Referrals /Forms Prescriptions: No Action clopidogrel [Plavix] 75 mg Tablet 75 mg PO DAILY RF: 0 metformin 1,000 mg Tablet 1,000 mg PO BID RF: 0 simvastatin 20 mg Tablet 20 mg PO QPM RF: 0 Status ED Status: With Doctor
[2018-05-09 11:49] LABS: Baso # (Auto) 0.1 th/mm3 (0.0-0.2); Baso % (Auto) 1.7 % (0.0-2.0); Eos # (Auto) 0.5 th/mm3 (0.0-0.4); Eos % (Auto) 6.7 % (0.0-4.0); Hematocrit 37.2 % (39.0-51.0); Hemoglobin 12.9 gm/dL (13.0-17.0); Lymph # (Auto) 1.4 th/mm3 (1.0-4.8); Lymph % (Auto) 20.9 % (9.0-44.0); Mean Corpuscular HGB Conc 34.7 % (32.0-36.0); Mean Corpuscular Hemoglobin 32.1 pg (27.0-34.0); Mean Corpuscular Volume 92.5 fL (80.0-100.0); Mean Platelet Volume 8.2 fL (7.0-11.0); Mono # (Auto) 0.5 th/mm3 (0.0-0.9); Neut # (Auto) 4.2 th/mm3 (1.8-7.7); Neut % (Auto) 62.7 % (16.0-70.0); Platelet Count 257 th/mm3 (150-450); Red Blood Count 4.03 mil/mm3 (4.50-5.90); Red Cell Distribution Width 13.9 % (11.6-17.2); White Blood Count 6.7 th/mm3 (4.0-11.0)
[2018-05-09 12:00] LABS: Activated Partial Thrombo Time 26.8 sec (24.3-30.1); Prothrombin Time 10.6 sec (9.8-11.6)
[2018-05-09 12:06] LABS: Alanine Aminotransferase 32 U/L (12-78); Albumin 3.9 g/dL (3.4-5.0); Anion Gap 10 meq/L (5-15); Aspartate Aminotransferase 21 U/L (15-37); Blood Urea Nitrogen 25 mg/dL (7-18); Carbon Dioxide 26.4 meq/L (21.0-32.0); Chloride 106 meq/L (98-107); Glomerular Filtration Rate 56 mL/min (>89); Glucose,Random 153 mg/dL (74-106); Magnesium 2.1 mg/dL (1.5-2.5); Potassium 3.6 meq/L (3.5-5.1); Sodium 142 meq/L (136-145)
[2018-05-09 12:10] LABS: Alkaline Phosphatase 118 U/L (45-117); Total Protein 7.2 g/dL (6.4-8.2); Troponin I 0.03 ng/mL (0.02-0.05)
--- NOTE | 2018-05-09 12:13 | XR ---
EXAM DATE: 05/09/2018 12:07 PM EDT AGE/SEX: 67 years / Male INDICATIONS: Short of breath. CLINICAL DATA: This is the patient's initial encounter. Patient reports that signs and symptoms have been present for 3 months and indicates a pain score of 2/10. MEDICAL/SURGICAL HISTORY: Carcinoma, rectal. CABG. COMPARISON: [facility] [place], CHEST PA & LAT, 09/04/2017. . FINDINGS: Heart is at the upper limits of normal in size. Median sternotomy wires are noted. Lungs are free of significant congestion. There is no evidence of acute airspace disease. Osseous structures are intact. CONCLUSION: Status post CABG. Borderline heart enlargement. No evidence of significant congestion or consolidating airspace disease. Electronically signed by: Hiram Sparks MD 05/09/2018 12:12 PM EDT
--- NOTE | 2018-05-09 14:38 | P.RAD ---
Post Procedure Progress Note - Pre Procedure Diagnosis (1) Pleural effusion - Post Procedure Diagnosis (1) Pleural effusion - Procedure Information Supervising Radiologist: Hiram Sparks MD Anesthesia: Local - Plan of Activity Patient to Unit: Other Patient Condition: Good See PACS Report for procedural detail/treatment. Drainage Procedure Ultrasound right Thoracentesis Y[place]ut Tube Size: 6 Drainage: Suction Fluid Description: Clear, Red
[2018-05-09] MEDS ORDERED: Lidocaine PF 1% Inj 30 ML Vial ONE (14:51)
--- NOTE | 2018-05-09 15:24 | XR ---
EXAM DATE: 05/09/2018 3:09 PM EDT AGE/SEX: 67 years / Male INDICATIONS: Status post right side thoracentesis. CLINICAL DATA: This is the patient's initial encounter. Patient reports that signs and symptoms have been present for 1 day and indicates a pain score of 0/10. MEDICAL/SURGICAL HISTORY: Carcinoma, rectal. CABG. COMPARISON: [facility], CHEST 1V SINGLE AP, 05/09/2018. . FINDINGS: A single frontal expiratory view of the chest was performed. There is prominence of the central pulm onary vasculature with indistinct vascular margins compatible with vascular congestion but no evidenc e of overt failure. There is no evidence of pneumothorax. Median sternotomy wires are present. Media stinal structures are in the midline. There is no evidence of pneumothorax. CONCLUSION: No evidence of pneumothorax following thoracentesis. Electronically signed by: Lucio Koehler MD 05/09/2018 3:23 PM EDT
--- NOTE | 2018-05-09 16:12 | US ---
EXAM DATE: 05/09/2018 3:37 PM EDT AGE/SEX: 67 years / Male INDICATIONS: Right pleural effusion. CLINICAL DATA: This is the patient's initial encounter. Patient reports that signs and symptoms have been present for 1 month and indicates a pain score of 2/10. MEDICAL/SURGICAL HISTORY: Hypertension. Diabetes mellitus type II. CVA. Hyperlipidemia. Prosta te cancer. Rectal cancer. Colostomy. Colon resection. CABG. Brain tumor. COMPARISON: [facility], CHEST EXPIRATION ONLY, 05/09/2018. . FLUID: Total volume of 900 cc of clear, red fluid was removed. Fluid was sent to lab for ordered studies. . . TECHNIQUE: Ultrasound guidance for thoracentesis. Thoracentesis. The risks, benefits, and alternatives to ultrasound guided thoracentesis were explained to the patien t in lay simple terms, including the risk of bleeding and infection. Written and verbal informed con sent was obtained. Appropriate area for right thoracentesis was marked under ultrasound guidance with the patient in the upright position. Overlying skin was prepped and draped in the usual sterile fashion and with local anesthetic, a dermatotomy was made with an 11 blade scalpel. A 6 Romanian thoracentesis catheter was placed in the pleural space and fluid was removed. Catheter was then removed and a sterile dressing applied. There were no immediate complications. The patient tolerated the procedure well and the lef t the ultrasound suite in stable condition. Chest radiograph is to be obtained. CONCLUSION: Uncomplicated right thoracentesis. Electronically signed by: Hiram Sparks MD 05/09/2018 4:11 PM EDT
[2018-05-09 16:29] LABS: Glucose,Pleural Fluid 142 mg/dL; LDH,Pleural Fluid 114 U/L
[2018-05-09 16:36] LABS: Total Protein,Pleural Fluid 2.6 gm/dL
[2018-05-09 16:44] LABS: Amylase,Pleural Fluid ND U/L
[2018-05-09 17:13] LABS: Eosinophils,Pleural Fluid 1 %; Lymphocytes,Pleural Fluid 81 %; Mesothelial,Pleural Fluid 8 %; Neutrophils,Pleural Fluid 2 %
[2018-05-09 17:15] LABS: RBC,Pleural Fluid 13988 /mm3 (0-0)
--- NOTE | 2018-05-09 22:34 | MB ---
cc: Chema Marmolejo MD, Andrew H MD DATE: 05/09/2018 REASON FOR CONSULTATION: Patient presenting with what appears to be metastatic rectal cancer with bilateral pleural effusions. PATIENT PROFILE: The patient is a 67-year-old white male. He is . He has 5 children, 3 sons and 2 daughters. He was born in [place], [place] and has lived in [place] for approximately 11 years. He is retired. 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 He has been on disability since 1995, initially due to a back injury. He stopped smoking 30 years ago and had smoked a pack of cigarettes per day for 25 years. He does not drink and alcohol intake in the past was minimal. HISTORY OF PRESENT ILLNESS: The patient is a 67-year-old male who was found to have a prostate cancer approximately 10 years ago and was treated with radioactive seeds. He has had no reoccurrence. He tells me that his PSAs are less than 2. In 07/2017, he developed rectal bleeding. He was found to have an adenocarcinoma of the rectum and an abdominoperineal resection was performed on 09/11/2018. He was found to have a pathologic T3 N0 adenocarcinoma, 13 lymph nodes were negative. The tumor was well differentiated. Margins were negative. The patient was not a candidate for either preop or postop radiation due to his previous radiation for the prostate cancer. He did not receive adjuvant chemotherapy. He did well until the past several weeks, when he developed shortness of breath after spray painting his motorcycle. His shortness of breath worsened and he saw Dr. Lane, who his colorectal surgeon, and had a chest x-ray showing an effusion. On 05/03/2018, he had a CT scan of the thorax, abdomen and pelvis. I have reviewed the images and reviewed them with the patient's and daughter. He has bilateral effusions, right larger than the left. He has pelvic adenopathy, a small amount of retroperitoneal adenopathy, and what appears to be 2 liver metastases involving the inferior aspect of the liver and recurrent disease in the perineum. He has had no pain in the pelvis. His colostomy functions well. There has been no weight loss. His only complaint is the shortness of breath. He had 900 mL of fluid removed today from the right lung. On 2016, hemoglobin 11.7, white count 15,000, platelets 243,000. Electrolytes, BUN and creatinine are notable for a glucose of 236. Dr. Lane tells me his CEA has been normal. PAST SURGICAL HISTORY: 1. Abdominoperineal resection 09/11/2017 for pathologic T3 M0 disease. 2. 1991, coronary artery bypass surgery grafting x 3, [facility]. 3. 1997, the patient was found to have a benign frontal brain tumor, which was removed. He does not know the name of the type of tumor. 4. Approximately 10 years ago, biopsy of the prostate identified prostate cancer, treated with radioactive seeds. 5. Right inguinal hernia repair. 6. Carpal tunnel release. PAST MEDICAL HISTORY: 1. Rectal cancer, as described above, treated with surgery in August 2017, pathologic T3 M0. 2. TIA in 1996, leading to the discovery of a benign brain tumor. 3. Diabetes. 4. Hypertension. 5. Prostate cancer, treated with radioactive seeds without reoccurrence. 6. Elevated cholesterol. MEDICATIONS PRIOR TO ADMISSION: 1. Metformin 1000 mg p.o. b.i.d. 2. Plavix 75 a day. 3. Simvastatin 20 a day. ALLERGIES: NONE. FAMILY HISTORY: Father at 62 of complications of a stroke. Mother at 71 and had heart disease. The patient's 2 brothers are living and a sister at 54 years of age. REVIEW OF SYSTEMS: EYES: He has glasses. EARS: Hearing is good. CARDIOVASCULAR: No chest pain, palpitations. RESPIRATORY: Notable for progressive shortness of breath over the past few weeks. GI: Colostomy functioning well. No melena, hematochezia, hematemesis. GENITOURINARY: No dysuria or frequency. MUSCULOSKELETAL: No bone pain. NEUROLOGIC: No weakness. SKIN: He has noted a lump involving the perineum and at the base of the scrotum. PHYSICAL EXAMINATION: GENERAL: The patient appears well. VITAL SIGNS: Blood pressure 140/100, respiratory rate 18, pulse 70 and I believe multiple premature beats. OROPHARYNX: Unremarkable. NECK: No cervical, supraclavicular, axillary or inguinal adenopathy. HEART: Regular rhythm. LUNGS: Clear, except for slightly decreased sounds at the bases. ABDOMEN: Soft. No hepatosplenomegaly. There is a colostomy which is functioning well. EXTREMITIES: No edema. MUSCULOSKELETAL: No bone pain. NEUROLOGIC: No weakness. Cognition and affect normal. SKIN: I can feel two subcutaneous ? metastases, one at the base of the scrotum and the other in the perineal area, both are hard and firm and I believe are probably malignant. ASSESSMENT: The patient had an adenocarcinoma of the rectum removed in August 2017. He now appears to have metastatic disease involving liver, lymph nodes, skin and possibly pleura of lung. PLAN: 1. Dr. Lane will do a biopsy of subcutaneous nodule. 2. He will have a port placed. 3. Check CMP, CEA. 4. The bilateral effusions were not expected. They may be related to malignancy, but it is not clear. I will order an echocardiogram and a BNP. Once the biopsy is done and port placed, he can go home. I will ask pathology to do KRAS testing to determine whether he is a candidate for cetuximab. I am hoping that within 2 weeks, I will begin treatment and the choice of treatment will depend upon KRAS and BRAF testing. A great deal of time was spent with the patient and . I showed them the films and we talked about treatment and reevaluation. MD RUDDY Parks/JUSTYN , 09:49 PM , 10:33 PM GIOVANNA
[2018-05-09 22:56] LABS: Alanine Aminotransferase 31 U/L (12-78); Albumin 3.6 g/dL (3.4-5.0); Anion Gap 9 meq/L (5-15); Aspartate Aminotransferase 18 U/L (15-37); Blood Urea Nitrogen 23 mg/dL (7-18); Calcium 8.8 mg/dL (8.5-10.1); Carbon Dioxide 26.2 meq/L (21.0-32.0); Chloride 107 meq/L (98-107); Glomerular Filtration Rate 54 mL/min (>89); Glucose,Random 143 mg/dL (74-106); Potassium 3.4 meq/L (3.5-5.1); Sodium 142 meq/L (136-145)
[2018-05-09] MEDS ORDERED: Dextrose 50% in Water 50 ML Vial IV.PUSH PRN (22:57)
[2018-05-09 23:01] LABS: Alkaline Phosphatase 113 U/L (45-117); Total Protein 6.6 g/dL (6.4-8.2)
--- NOTE | 2018-05-10 07:54 | P.PNONC ---
Subjective Interval history: Patient feeling well but still having mild exertional shortness of breath. No pleuritic pain. No calf or thigh swelling. Objective Vital Signs/Intake & Output: Vital Signs 05/09/18 10:21 05/09/18 11:33 05/09/18 11:45 Temperature 97.5 F L Pulse Rate 74 72 Respiratory Rate 16 17 Blood Pressure 117/68 142/88 H Pulse Oximetry 97 95 96 05/09/18 13:00 05/09/18 14:46 05/09/18 15:20 Temperature Pulse Rate 76 68 Respiratory Rate 20 20 Blood Pressure 152/84 H 142/80 H Pulse Oximetry 96 96 95 05/09/18 15:35 05/09/18 16:30 05/09/18 17:30 Temperature Pulse Rate 66 68 68 Respiratory Rate 19 17 16 Blood Pressure 130/77 129/78 160/81 H Pulse Oximetry 96 96 98 05/09/18 18:40 05/09/18 20:00 05/09/18 21:23 Temperature 98.8 F Pulse Rate 70 70 Respiratory Rate 20 16 Blood Pressure 152/81 H 142/79 H Pulse Oximetry 98 95 95 05/09/18 23:55 05/10/18 03:43 Temperature 98.3 F 98 F Pulse Rate 73 67 Respiratory Rate 16 16 Blood Pressure 144/91 H 149/99 H Pulse Oximetry 95 93 L Intake & Output 05/09/18 05/10/18 05/10/18 18:59 06:59 18:59 Weight 76.204 kg Result Diagrams: 05/09/18 11:30 05/09/18 22:19 Laboratory Results: Laboratory Results - last 24 hr 05/09/18 05/09/18 05/09/18 11:30 11:30 11:30 WBC 6.7 RBC 4.03 L Hgb 12.9 L Hct 37.2 L MCV 92.5 MCH 32.1 MCHC 34.7 RDW 13.9 Plt Count 257 MPV 8.2 Neut % (Auto) 62.7 Lymph % (Auto) 20.9 [place] % (Auto) 8.0 Eos % (Auto) 6.7 H Baso % (Auto) 1.7 Neut # (Auto) 4.2 Lymph # (Auto) 1.4 [place] # (Auto) 0.5 Eos # (Auto) 0.5 H Baso # (Auto) 0.1 WBC Differential . Differential Comment Auto diff final PT 10.6 INR 1.0 APTT 26.8 Sodium 142 Potassium 3.6 Chloride 106 Carbon Dioxide 26.4 Anion Gap 10 BUN 25 H Creatinine 1.29 Estimated GFR 56 L POC Glucose Random Glucose 153 H Calcium 9.0 Magnesium 2.1 Total Bilirubin 0.5 AST 21 ALT 32 Alkaline Phosphatase 118 H Troponin I 0.03 B-Natriuretic Peptide Total Protein 7.2 Albumin 3.9 Carcinoembryonic Ag Pleural pH Pleural RBC Pleural Nuc Cells Pleural Neutrophils Pleural Lymphocytes Pleural Eosinophils Pleural Histocytes Pleural Mesothelial Pleural Total Protein Pleural LDH Pleural Glucose Pleural Amylase 05/09/18 05/09/18 05/09/18 11:30 14:15 14:15 WBC RBC Hgb Hct MCV MCH MCHC RDW Plt Count MPV Neut % (Auto) Lymph % (Auto) [place] % (Auto) Eos % (Auto) Baso % (Auto) Neut # (Auto) Lymph # (Auto) [place] # (Auto) Eos # (Auto) Baso # (Auto) WBC Differential Differential Comment PT INR APTT Sodium Potassium Chloride Carbon Dioxide Anion Gap BUN Creatinine Estimated GFR POC Glucose Random Glucose Calcium Magnesium Total Bilirubin AST ALT Alkaline Phosphatase Troponin I B-Natriuretic Peptide 867 H Total Protein Albumin Carcinoembryonic Ag Pleural pH 7.5 Pleural RBC 41175 H Pleural Nuc Cells 752 H Pleural Neutrophils 2 Pleural Lymphocytes 81 Pleural Eosinophils 1 Pleural Histocytes 8 Pleural Mesothelial 8 Pleural Total Protein 2.6 Pleural LDH 114 Pleural Glucose 142 Pleural Amylase ND 05/09/18 05/09/18 05/09/18 22:19 22:19 22:35 WBC RBC Hgb Hct MCV MCH MCHC RDW Plt Count MPV Neut % (Auto) Lymph % (Auto) [place] % (Auto) Eos % (Auto) Baso % (Auto) Neut # (Auto) Lymph # (Auto) [place] # (Auto) Eos # (Auto) Baso # (Auto) WBC Differential Differential Comment PT INR APTT Sodium 142 Potassium 3.4 L Chloride 107 Carbon Dioxide 26.2 Anion Gap 9 BUN 23 H Creatinine 1.32 H Estimated GFR 54 L POC Glucose 140 H Random Glucose 143 H Calcium 8.8 Magnesium Total Bilirubin 0.4 AST 18 ALT 31 Alkaline Phosphatase 113 Troponin I B-Natriuretic Peptide Total Protein 6.6 D Albumin 3.6 Carcinoembryonic Ag 2.3 Pleural pH Pleural RBC Pleural Nuc Cells Pleural Neutrophils Pleural Lymphocytes Pleural Eosinophils Pleural Histocytes Pleural Mesothelial Pleural Total Protein Pleural LDH Pleural Glucose Pleural Amylase Imaging Studies: Impressions Chest X-Ray 05/09/18 00:00 CONCLUSION: No evidence of pneumothorax following thoracentesis. Chest X-Ray 05/09/18 11:32 CONCLUSION: Status post CABG. Borderline heart enlargement. No evidence of significant congestion or consolidating airspace disease. Thoracentesis Ultrasound 05/09/18 11:46 CONCLUSION: Uncomplicated right thoracentesis. Objective Remarks: GENERAL: Appears well and in no distress SKIN: Warm and dry. HEAD: Normocephalic. EYES: No scleral icterus. No injection or drainage. NECK: Supple, trachea midline. No JVD or lymphadenopathy. LYMPHATIC: No adenopathy. CARDIOVASCULAR: Regular rate and rhythm without murmurs. RESPIRATORY: Slightly decreased breath sounds at the bases GASTROINTESTINAL: Abdomen soft, non-tender, nondistended. Colostomy functioning EXTREMITIES: No cyanosis, or edema. MUSCULOSKELETAL: Mild muscle wasting NEUROLOGICAL: No obvious focal deficit. Awake, alert, and oriented x3. PSYCHIATRIC: Appropriate mood and affect; insight and judgment normal. Assessment/Plan - Plan Presumptive diagnosis is metastatic rectal cancer. Patient will undergo a biopsy of the perineal nodule. He will have a port placed. Following this from my perspective he can go home and I can follow him as an outpatient. The BNP is mildly elevated and a echocardiogram is pending. It would be somewhat unusual to see bilateral pleural effusions from metastatic rectal cancer but this still remains the most likely explanation. I will request that pathology do BRAF and K-JACINTO testing to see if he is a candidate for cetuximab. I would like to see him approximately 1 week post discharge.
[2018-05-10] MEDS ORDERED: Vancomycin Inj 1,000 MG in Sodium Chlor 0.9% Inj 250 ML IV.SIG SCH (08:00)
[2018-05-10] MEDS ORDERED: ceFAZolin 2 GM Premix Inj 2 GM/50 ML PIGGYBACK IV.SIG SCH (08:00)
[2018-05-10] MEDS ORDERED: *Heparin Central Flush 100 UNIT/ML 5 ML Vial PERIprocedural ONLY IV.FLUSH ONE (10:23)
[2018-05-10] MEDS ORDERED: Lidocaine 1%/Epinephrine 1:100,000 Inj 30 ML Vial ONE (10:23)
--- NOTE | 2018-05-10 11:12 | P.RAD ---
Post Procedure Progress Note - Pre Procedure Diagnosis (1) Rectal cancer - Post Procedure Diagnosis (1) Rectal cancer - Procedure Information Supervising Radiologist: Lucio Koehler MD - Plan of Activity Patient to Unit: Nursing Unit Patient Condition: Fair See PACS Report for procedural detail/treatment. [facility] Radiology Procedures Infusaport Marshallese: 8
--- NOTE | 2018-05-10 11:46 | IR ---
EXAM DATE: 05/10/2018 11:18 AM EDT AGE/SEX: 67 years / Male INDICATIONS: Patient with metastatic rectal cancer in need of [id number] placement. CLINICAL DATA: This is the patient's initial encounter. Patient reports that signs and symptoms have been present for 7 - 11 months and indicates a pain score of 0/10. MEDICAL/SURGICAL HISTORY: Diabetes. Hypertension. Hypercholesterolemia. Prostate cancer, Shruthi nocarcinoma of the rectum, TIA, Benign frontal brain tumor, Bilateral pleural effusion Abdominoperine al resection, CABGX3, Benign frontal brain tumor removed, Thoracentesis, Prostate biopsy COMPARISON: No prior exams available for comparison. FLUORO TIME (min): 0.2 IMAGE SERIES: 1 SEDATION TIME (min): 30 MEDICATION(S): 2mg midazolam (Versed) IV 100mcg fentanyl (Sublimaze) IV Prophylactic antibiotics were administered with appropriate pre-procedure timing. Vancomycin within 2 hrs of procedure, Ancef (or alternative) within 1 hr of procedure. DEVICE(S): Right 8F Xcela plus port . . PROCEDURE : 1. Continuous pulse oximetry and EKG monitoring. 2. Intravenous conscious sedation. 3. Ultrasound guidance for venous access. 4. Fluoroscopic guided implantable central venous port placement. The patient was placed supine. The neck was prepped in sterile fashion. Full sterile technique was u sed, including cap, mask, sterile gloves and gown, and a large sterile sheet. Hand hygiene and 2% ch lorhexidine Betadine was utilized per protocol for cutaneous antisepsis with appropriate dry time for site. Sterile gel and sterile probe cover were utilized for ultrasound guidance. The skin and sub cutaneous tissues were infiltrated with local anesthetic solution. Under direct ultrasound guidance, central venous access was accomplished in the targeted vessel. The ultrasound images depicting access guidance were stored and saved to PACS for permanent record. A s ubcutaneous pocket was created using blunt dissection. The port was introduced to the pocket. The c atheter tubing was fed through a subcutaneous tunnel to the venotomy site. The catheter tubing was c ut to a suitable length and then was introduced through a valved Peel-Away sheath and positioned with catheter tubing tip at the cavo-atrial junction level. The pocket incision was closed with subcutic ular Vicryl suture. Steri-Strips were applied. The port was flushed and locked with heparin solutio n per protocol. Sterile dressing was applied to the site. The patient tolerated the procedure well. Conscious sedation was performed with the prescribed dosages and duration as above in the presence of an independent trained radiology nurse to assist in the monitoring of the patient. EKG and oximetry remained stable throughout the procedure. The patient tolerated the procedure well and there were no complications. The patient was sent to post anesthesia recovery in stable condition. CONCLUSION: 1. Uncomplicated ultrasound and fluoroscopic guided implanted central venous port catheter placement as described in detail above. An 8 La[employer] Power port was placed. Electronically signed by: Lucio Koehler MD 05/10/2018 11:45 AM EDT
[2018-05-10] MEDS ORDERED: Lidocaine PF 1% Inj 5 ML Syringe INFILTRATN ONE (12:00)
[2018-05-10] MEDS: Insulin NovoLOG Aspart Correctional Sugar Inj SQ SCH ×2 (13:33→15:18)
[2018-05-10] MEDS ORDERED: Chlorhexidine Gluconate 2% 1 Pack (2 Cloths) TOPICAL SCH (16:00)
[2018-05-10] MEDS ORDERED: Sodium Chlor 0.9% Inj 500 ML IV.SIG SCH (16:00)
[2018-05-10] MEDS ORDERED: Metoprolol Tartrate 25 MG Tablet PO SCH (16:00)
[2018-05-10] MEDS ORDERED: fentaNYL Citrate Inj 100 MCG/2 ML Ampul IV.PUSH ONE (16:56)
--- NOTE | 2018-05-11 08:40 | ECG ---
Date Performed: 05/10/2018 Time Performed: 09:05:59 PTAGE: 67 years EKG: Sinus rhythm RIGHT BUNDLE BRANCH BLOCK PVCs POSSIBLE ANTERIOR MYOCARDIAL INFARCTION ABNORMAL ECG PREVIOUS TRACING : 09/04/2017 10.58 DOCTOR: Tiffany Muse Interpretating Date/Time 05/11/2018 08:38:24
[2018-05-11 15:27] LABS: Amylase, Body Fluid 26 U/L
--- NOTE | 2018-05-12 10:49 | MP ---
cc: Jose Lane MD DATE OF OPERATION: PREOPERATIVE DIAGNOSIS: History of rectal cancer, perineal mass. PROCEDURE PERFORMED: Exam under anesthesia, with excision of perineal mass. POSTOPERATIVE DIAGNOSIS: History of rectal cancer, perineal mass. SURGEON: Jose Lane MD DESCRIPTION OF PROCEDURE: The patient was placed in the left lateral decubitus position. After adequate anesthesia sedation, his buttocks were taped apart, prepped with Betadine solution and draped in the usual sterile fashion. Initially, local anesthesia was obtained by injection of 1% Xylocaine/half % Marcaine with epinephrine. Examination revealed a mass palpable underneath the skin along the previous perineal closure where his proctectomy had been completed. Midline was opened and dissected through the subcutaneous tissues, identifying a mass in the subcutaneous space. This mass was excised by using electrocautery to divide its attachments to the subcutaneous tissue. After complete excision, there did appear to be firmness and induration more proximally, but felt that the mass itself had been adequately removed. Cavity was irrigated with normal saline, and hemostasis achieved. The cavity was then closed in several layers using interrupted Vicryl sutures to try to obliterate the space and close the subcutaneous tissue. The skin was closed with a running subcuticular Vicryl suture. Wound area was washed with normal saline and dried, sterile dressing of Telfa and gauze applied. The patient tolerated the procedure quite well and was brought to the recovery room in stable condition. Jose Lane MD [facility] , 10:19 AM , 10:48 AM
--- NOTE | 2018-06-10 08:12 | MH ---
cc: Jose Lane MD DATE OF ADMISSION: 05/09/2018 REASON FOR ADMISSION: Severe shortness of breath, history of pleural effusions, history of rectal cancer with recently documented metastatic recurrence. HISTORY OF PRESENT ILLNESS: Mr. Dowell is a 67-year-old male who was initially treated for prostate cancer more than 10 years ago. He has done pretty well since that time. In July of 2017, he noted onset of rectal bleeding and was diagnosed as having a cancer of the rectum. Since he had preop radiation, he was unable to have additional radiation and underwent abdominal perineal resection in August of 2018. 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 The patient did well after surgery taking a little time to adjust to his new colostomy. The patient has been followed in the office with good regularity. Most recently, he developed some nodularity in his perineal incision, which appeared to increase in size. He also more acutely developed shortness of breath, which was new and appeared to get suddenly worse. The patient was evaluated on an outpatient basis and found to have significant bilateral pleural effusions. Due to his progressive shortness of breath and inability to lie flat, he was referred to the hospital for admission for medical workup, probable biopsy of the perineal masses and thoracentesis if his shortness of breath would not respond to medical treatment. PAST MEDICAL HISTORY: 1. History of carpal tunnel surgery. 2. Inguinal hernia repair. 3. Past history of prostate cancer treated with radioactive seeds. 4. Previous history of benign brain tumor. 5. Coronary artery bypass grafting in 1991. 6. Abdominoperineal resection in August 2017. 7. History of hypertension. 8. TIA. 9. History of diabetes. MEDICATIONS: Please see admitting list. ALLERGIES: NONE KNOWN. PHYSICAL EXAMINATION: GENERAL: Very pleasant older male in some moderate shortness of breath. HEENT: Remarkable for dry, but somewhat pink membranes. Nonicteric sclerae. NECK: Supple without gross adenopathy. CHEST: Diminished in the bases, clear anteriorly. HEART: Had a slight tachycardia. ABDOMEN: Soft and flat. No distention. No rebound or guarding or any masses. Colostomy was pink and patent. Perineum showed a well-healed scar with nodularity underneath the skin. Mildly tender and somewhat immovable. EXTREMITIES: No cyanosis or clubbing and 1+ pedal edema. LABORATORY STUDIES: All reviewed and updated in the chart. IMPRESSION: A 67-year-old male with a history of prostate cancer, rectal cancer, now with probable recurrence of the rectal cancer, new onset shortness of breath, which is a little puzzling due to the lack of any pulmonary metastasis. We will have him undergo thoracentesis shortly after admission to see if he gets any symptomatic improvement. If his lung function improves, we would plan on MAC sedation and excisional biopsy of the perineal mass to document recurrence of the rectal tumor. He was also found to have some retroperitoneal adenopathy also consistent with spread of the tumor. Dr. Marmolejo has been consulted for oncology evaluation and probable adjuvant chemotherapy once we have all the appropriate tests returned. Risks, benefits, and alternatives to the surgical biopsies were discussed in detail with the patient and his and they are prepared to go ahead with the proposed treatment. Jose Lane MD AHR/sv , 10:14 PM , 10:23 PM
== END 2018-05-10 20:48 | disposition home or self-care (01) ==
LOC: NEPC 10:13 → NEDA 12:19 → NEPGCP 18:20
PROVIDERS: ADMIT Colon & Rectal Surgery; ATTEND Colon & Rectal Surgery

== ENCOUNTER 2018-05-14 11:17 | Inpatient (IN) ==
--- NOTE | 2018-05-14 11:39 | ED ---
HPI General Chief Complaint: Shortness of Breath/Dyspnea Stated Complaint: SOB Time Seen by Provider: 05/14/18 11:39 Source: patient Mode of arrival: ambulatory Limitations: no limitations History of Present Illness MD Complaint: shortness of breath Onset (ago): day(s) Severity: moderate Consistency/Duration: constant Relieving factors: nothing Exacerbating factors: exertion Related Data Home oxygen amount: none Home Medications Medication Instructions Recorded Confirmed clopidogrel [Plavix] 75 mg PO DAILY 05/09/18 05/14/18 metformin 1,000 mg PO BID 05/09/18 05/14/18 simvastatin 20 mg PO QPM 05/09/18 05/14/18 buspirone 5 mg PO TID PRN 05/14/18 05/14/18 Allergies Allergy/AdvReac Type Severity Reaction Status Date / Time No Known Allergies Allergy Verified 05/14/18 12:00 Review of Systems Except as stated in HPI: all other systems reviewed are negative PMFSH History History Provided By: Patient Medical History Medical History Brain tumor (Acute) CVA (cerebral vascular accident) (Acute) Colostomy in place (Acute) Hyperlipidemia (Acute) Hypertension (Acute) Prostate cancer (Acute) Rectal cancer (Acute) Type 2 diabetes mellitus (Acute) Surgical History Surgical History H/O resection of rectum (Acute) S/P triple vessel bypass (Acute) Social History Social History Substance History: No History of Abuse Second Hand Smoke Exposure: No Smoking Status: Former smoker Tobacco Type: Cigarettes How Often Do You Have a Drink Containing Alcohol: Never Recent Travel in [facility] within the Last 8 Weeks: No Recent Out of Country Travel within the Last 8 Weeks: No Exam Narrative Exam Narrative: GENERAL: Well-nourished, well-developed patient in no apparent distress. SKIN: Warm and dry. HEAD: Atraumatic. Normocephalic. EYES: Pupils equal and round. No scleral icterus. No injection or drainage. ENT: No nasal bleeding or discharge. Mucous membranes pink and moist. NECK: Trachea midline. No JVD. CARDIOVASCULAR: Regular rate and rhythm. no rubs or gallops RESPIRATORY: No accessory muscle use. Clear to auscultation. Breath sounds equal bilaterally. GASTROINTESTINAL: Abdomen soft, non-tender, nondistended. No rebound or guarding MUSCULOSKELETAL: Extremities without clubbing, cyanosis, or edema. No obvious deformities. NEUROLOGICAL: Awake and alert. No obvious cranial nerve deficits. Motor grossly within normal limits. Five out of 5 muscle strength in the arms and legs. Normal speech. PSYCHIATRIC: Appropriate mood and affect; insight and judgment normal. Course Initial Documented Vital Signs Temperature 97.3 F L 05/14/18 11:22 Pulse Rate 78 05/14/18 11:22 Respiratory Rate 20 05/14/18 11:22 Blood Pressure 159/101 H 05/14/18 11:22 Pulse Oximetry 97 05/14/18 11:22 Last Documented Vital Signs Temperature 97.3 F L 05/14/18 11:22 Pulse Rate 76 05/14/18 14:09 Respiratory Rate 22 05/14/18 14:00 Blood Pressure 153/97 H 05/14/18 14:00 Pulse Oximetry 97 05/14/18 14:00 Critical Care Time Critical Care Time: Yes Total Critical Care Time: 30 Attestation: Aggregate critical care time was 30 minutes. Time to perform other separately billable procedures was not included in the critical care time. My time did not include minutes spent treating any other patients simultaneously or on activities that did not directly contribute to the patient's treatment. The services I provided to this patient were to treat and/or prevent clinically significant deterioration that could result in: [permanent neurological] disability versus I provided critical care services requiring my management, as noted below: Chart data review, documentation time, medication orders and management, vital sign assessments/reviewing monitor data, ordering and reviewing lab tests, ordering and interpreting/reviewing x-rays and diagnostic studies, care of the patient and discussion of the patient with the admitting physicians. Medical Decision Making Differential Diagnosis Differential Diagnosis: Pneumonia versus pericardial effusion versus pleural effusion Lab Data Result diagrams: 05/14/18 12:03 05/14/18 12:03 Lab Results 05/14/18 05/14/18 05/14/18 Range/Units 12:03 12:03 12:03 WBC 7.0 (4.0-11.0) th/mm3 RBC 4.39 L (4.50-5.90) mil/mm3 Hgb 13.4 (13.0-17.0) gm/dL Hct 40.4 (39.0-51.0) % MCV 92.1 (80.0-100.0) fL MCH 30.5 (27.0-34.0) pg MCHC 33.1 (32.0-36.0) % RDW 13.7 (11.6-17.2) % Plt Count 289 (150-450) th/mm3 MPV 8.2 (7.0-11.0) fL Neut % (Auto) 72.3 H (16.0-70.0) % Lymph % (Auto) 17.1 (9.0-44.0) % [place] % (Auto) 4.4 (0.0-8.0) % Eos % (Auto) 5.1 H (0.0-4.0) % Baso % (Auto) 1.1 (0.0-2.0) % Neut # (Auto) 5.1 (1.8-7.7) th/mm3 Lymph # (Auto) 1.2 (1.0-4.8) th/mm3 [place] # (Auto) 0.3 (0.0-0.9) th/mm3 Eos # (Auto) 0.4 (0.0-0.4) th/mm3 Baso # (Auto) 0.1 (0.0-0.2) th/mm3 WBC Differential . Differential Comment Auto diff final PT 10.4 (9.8-11.6) sec INR 1.0 Ratio APTT 27.4 (24.3-30.1) sec Sodium 144 (136-145) meq/L Potassium 3.8 (3.5-5.1) meq/L Chloride 108 H (98-107) meq/L Carbon Dioxide 23.3 (21.0-32.0) meq/L Anion Gap 13 (5-15) meq/L BUN 18 (7-18) mg/dL Creatinine 1.23 (0.60-1.30) mg/dL Estimated GFR 59 L (>89) mL/min Random Glucose 132 H (74-106) mg/dL Calcium 9.6 (8.5-10.1) mg/dL Total Bilirubin 0.5 (0.2-1.0) mg/dL AST 17 (15-37) U/L ALT 26 (12-78) U/L Alkaline Phosphatase 124 H (45-117) U/L Troponin I 0.07 H (0.02-0.05) ng/mL Total Protein 7.4 D (6.4-8.2) g/dL Albumin 3.9 (3.4-5.0) g/dL Imaging Data Radiologist's impression: Chest CTA 05/14/18 11:36 CONCLUSION: 1. No pulmonary embolus identified. 2. Bilateral pleural effusions and atelectasis. 3. Overall appearance of the chest demonstrates a mild interval increase in size of the effusions compared to previous dated 05/03/2018. The remainder is stable. Discharge Plan Discharge Disposition Patient Disposition: 30 Still Patient Discharge Condition Condition: Stable Discharge Details Diagnosis: Pleural effusion, Elevated troponin Physicians Team ED Provider: Lee Kaufman Primary Care Provider: Eleanor May Rxs /Orders / Referrals /Forms Prescriptions: No Action clopidogrel [Plavix] 75 mg Tablet 75 mg PO DAILY RF: 0 metformin 1,000 mg Tablet 1,000 mg PO BID RF: 0 simvastatin 20 mg Tablet 20 mg PO QPM RF: 0 buspirone 5 mg Tablet 5 mg PO TID PRN (Reason: Anxiety) RF: 0 Discharge Interventions Interventions: Vital Signs Last Done: 05/14/18 14:00 Status ED Status: With Doctor
[2018-05-14 12:26] LABS: Baso # (Auto) 0.1 th/mm3 (0.0-0.2); Baso % (Auto) 1.1 % (0.0-2.0); Eos # (Auto) 0.4 th/mm3 (0.0-0.4); Eos % (Auto) 5.1 % (0.0-4.0); Hematocrit 40.4 % (39.0-51.0); Hemoglobin 13.4 gm/dL (13.0-17.0); Lymph # (Auto) 1.2 th/mm3 (1.0-4.8); Lymph % (Auto) 17.1 % (9.0-44.0); Mean Corpuscular HGB Conc 33.1 % (32.0-36.0); Mean Corpuscular Hemoglobin 30.5 pg (27.0-34.0); Mean Corpuscular Volume 92.1 fL (80.0-100.0); Mean Platelet Volume 8.2 fL (7.0-11.0); Mono # (Auto) 0.3 th/mm3 (0.0-0.9); Mono % (Auto) 4.4 % (0.0-8.0); Neut # (Auto) 5.1 th/mm3 (1.8-7.7); Neut % (Auto) 72.3 % (16.0-70.0); Platelet Count 289 th/mm3 (150-450); Red Blood Count 4.39 mil/mm3 (4.50-5.90); Red Cell Distribution Width 13.7 % (11.6-17.2)
[2018-05-14 12:49] LABS: Activated Partial Thrombo Time 27.4 sec (24.3-30.1); Prothrombin Time 10.4 sec (9.8-11.6)
[2018-05-14 12:54] LABS: Albumin 3.9 g/dL (3.4-5.0); Anion Gap 13 meq/L (5-15); Aspartate Aminotransferase 17 U/L (15-37); Blood Urea Nitrogen 18 mg/dL (7-18); Calcium 9.6 mg/dL (8.5-10.1); Carbon Dioxide 23.3 meq/L (21.0-32.0); Chloride 108 meq/L (98-107); Glomerular Filtration Rate 59 mL/min (>89); Glucose,Random 132 mg/dL (74-106); Potassium 3.8 meq/L (3.5-5.1); Sodium 144 meq/L (136-145)
[2018-05-14 12:59] LABS: Alanine Aminotransferase 26 U/L (12-78); Alkaline Phosphatase 124 U/L (45-117); Total Protein 7.4 g/dL (6.4-8.2); Troponin I 0.07 ng/mL (0.02-0.05)
--- NOTE | 2018-05-14 13:51 | CT ---
EXAM DATE: 05/14/2018 1:45 PM EDT AGE/SEX: 67 years / Male INDICATIONS: Increased shortness of breath. CLINICAL DATA: This is the patient's initial encounter. Patient reports that signs and symptoms have been present for 1 week and indicates a pain score of 0/10. MEDICAL/SURGICAL HISTORY: Hypertension. Diabetes. Cerebrovascular disease. Prostate cancer, rect al cancer. Colostomy. RADIATION DOSE: 10.83 CTDI (mGy) COMPARISON: [facility], CT CHEST W/ CONTRAST, 05/03/2018. . TECHNIQUE: Volumetric scanning was performed using a multi-row detector CT scanner during bolus infu kristen of 75 ml Omnipaque 350 (iohexol) nonionic water-soluble contrast as a single exam dose. The lazaro a was post processed with a variety of visualization algorithms including full volume maximum intensi ty projection and sliding thin slab reformation. Using automated exposure control and adjustment of the mA and/or kV according to patient size, radiation dose was kept as low as reasonably achievable t o obtain optimal diagnostic quality images. DICOM format image data is available electronically for review and comparison. FINDINGS: The examination is of excellent diagnostic quality. No pulmonary embolus is identified. The heart is mildly enlarged. There is advanced atherosclerotic [place] in the [place] coronary arter ies. The patient is post median sternotomy. No pericardial effusion is seen. No significant hilar or mediastinal adenopathy is present. Imaging through the pulmonary parenchyma demonstrates bilateral pleural effusions slightly larger on the right than the left. There are atelectatic changes within both lung bases. There is diffuse inter stitial prominence suggesting congestive failure. The patient's [id number] is in satisfactory position. The visualized bony structures are grossly intact. CONCLUSION: 1. No pulmonary embolus identified. 2. Bilateral pleural effusions and atelectasis. 3. Overall appearance of the chest demonstrates a mild interval increase in size of the effusions co mpared to previous dated 05/03/2018. The remainder is stable. Electronically signed by: Sundeep Schofield MD 05/14/2018 1:49 PM EDT
[2018-05-14] MEDS ORDERED: Aspirin 325 MG Tablet PO ONE (14:22)
[2018-05-14] MEDS ORDERED: Enoxaparin Inj 80 MG/0.8 ML Syringe SQ ONE (14:22)
[2018-05-14] MEDS ORDERED: Bisacodyl 10 MG Supp RECTAL PRN (16:01)
[2018-05-14] MEDS ORDERED: Acetaminophen 325 MG Tablet PO PRN (16:01)
--- NOTE | 2018-05-14 16:23 | P.HPIM ---
History of Present Illness Primary Care Physician: Eleanor May MD Chief Complaint: Shortness of breath History of Present Illness: 67-year-old white male with a history of CAD, TIA, hyperlipidemia, hypertension , prostate cancer, rectal cancer with liver metastasis, diabetes mellitus type 2 presents to the emergency room with a 5 week history of worsening shortness of breath with physical exertion, symptoms orthopnea and PND. Patient was found to have bilateral pleural effusions recently as he was sent in to obtain a rectal biopsy, right-sided thoracentesis, and port placement for future chemotherapy by Dr. Marmolejo. He reports also associated left-sided sharp chest pain in which he rates as a pain intensity of 3 out of 10 with no radiation which lasted about 3 seconds with no recurrence. He reports only minimal dry cough. He has not had any underlying chills or fever. He denies symptoms or lower extremity edema. He reports no changes in his bowel movement and has a functional colostomy. He still continues to have a good appetite with no other complaints at this time. Inpatient Certification: I certify that the inpatient services were ordered in accordance with Medicare regulations governing the order. This includes certification that hospital inpatient services are reasonable and necessary and in the case of services not specified as inpatient-only under 42 CFR 419.22(n), that they are appropriately provided as inpatient services in accordance to with the 2-midnight benchmark under 43 CFR 412.3(e) Estimated Total Length of Stay (Days): 3 Plans for Post Hospital Care: Home health Review of Systems All other systems reviewed negative except as stated in [facility] - History History Provided By: Patient - Medical History Medical History: Medical History (Last Updated 05/14/18 @ 16:15 by Tran Chance MD) Coronary artery disease Liver metastasis Brain tumor CVA (cerebral vascular accident) Colostomy in place Hyperlipidemia Hypertension Prostate cancer Rectal cancer Type 2 diabetes mellitus - Surgical History Surgical History: Surgical History (Last Updated 05/14/18 @ 16:17 by Tran Chance MD) H/O carpal tunnel repair S/P inguinal hernia repair H/O resection of rectum S/P triple vessel bypass - Family History Family History: Family History (Last Updated 05/14/18 @ 16:18 by Tran Chance MD) Mother Family history of acute myocardial infarction Father CVA (cerebral vascular accident) - Tobacco History Second Hand Smoke Exposure: No Smoking Status: Former smoker Tobacco Type: Cigarettes - Alcohol History How Often Do You Have a Drink Containing Alcohol: Never - Substance Use History Substance History: No History of Abuse - Travel History Recent Travel in the [place] Within the Last 8 Weeks: No Recent Travel Out of the Country Within the Last 8 Weeks: No - Immunization History Tetanus Immunization: >5 Years Hx Influenza Vaccine This Season: No Medications and Allergies Active Medications: Active Medications Acetaminophen (Tylenol) 650 mg PO Q4H PRN PRN Reason: Temp > 100.4 Al Hydroxide/Mg Hydroxide (Milk Of Magnesia Liq) 30 ml PO Q12H PRN PRN Reason: Mild Constipation Bisacodyl (Dulcolax Supp) 10 mg RECTAL DAILY PRN PRN Reason: SEVERE CONSITIPATION Enoxaparin Sodium (Lovenox Inj) 40 mg SQ Q24H MADHURI Furosemide (Lasix Inj) 40 mg IV.PUSH BID@0900,1800 MADHURI Lactulose (Lactulose Liq) 30 ml PO DAILY PRN PRN Reason: SEVERE CONSITIPATION Potassium Chloride (Kcl) 10 meq PO BID MADHURI Sennosides (Senokot) 17.2 mg PO Q12H PRN PRN Reason: Moderate Constipation Sodium Chloride (Ns Flush) 2 ml IV.FLUSH PRN PRN PRN Reason: FLUSH AFTER USING IV ACCESS Sodium Chloride (Ns Flush) 2 ml IV.FLUSH BID MADHURI Sodium Chloride (Ns Flush) 2 ml IV.FLUSH UNSCH PRN PRN Reason: FLUSH AFTER USING IV ACCESS Allergies Allergy/AdvReac Type Severity Reaction Status Date / Time No Known Allergies Allergy Verified 05/14/18 12:00 Home Medications Medication Instructions Recorded Confirmed Type clopidogrel [Plavix] 75 mg PO DAILY 05/09/18 05/14/18 History metformin 1,000 mg PO BID 05/09/18 05/14/18 History simvastatin 20 mg PO QPM 05/09/18 05/14/18 History buspirone 5 mg PO TID PRN 05/14/18 05/14/18 History Exam Vital signs: Vital Signs 05/14/18 11:22 05/14/18 11:54 05/14/18 14:00 Temperature 97.3 F L Pulse Rate 78 72 78 Respiratory Rate 20 28 H 22 Blood Pressure 159/101 H 141/87 H 153/97 H Pulse Oximetry 97 97 97 05/14/18 14:09 Temperature Pulse Rate 76 Respiratory Rate Blood Pressure Pulse Oximetry Intake & Output 05/13/18 05/14/18 05/14/18 18:59 06:59 18:59 Weight 75.75 kg Narrative: GENERAL: Well-nourished well-developed white male no acute distress SKIN: Warm and dry. HEAD: Atraumatic. Normocephalic. EYES: Pupils equal and round. No scleral icterus. No injection or drainage. ENT: No nasal bleeding or discharge. Mucous membranes pink and moist. Oropharynx benign NECK: Trachea midline. No JVD. CARDIOVASCULAR: Regular rate and rhythm. RESPIRATORY: No accessory muscle use. Left bibasilar crackles and diminished breath sounds in the right base GASTROINTESTINAL: Abdomen soft, non-tender, nondistended. Hepatic and splenic margins not palpable. Normoactive bowel sounds colostomy viable MUSCULOSKELETAL: Extremities without clubbing, cyanosis, or edema. No obvious deformities. NEUROLOGICAL: Awake and alert to person place time and situation. No obvious cranial nerve deficits. Motor grossly within normal limits. Five out of 5 muscle strength in the arms and legs. Normal speech. PSYCHIATRIC: Appropriate mood and affect; insight and judgment normal. Results - Labs CBC & Chem 7: 05/14/18 12:03 05/14/18 12:03 Labs: Short CBC 05/14/18 Range/Units 12:03 WBC 7.0 (4.0-11.0) th/mm3 Hgb 13.4 (13.0-17.0) gm/dL Hct 40.4 (39.0-51.0) % Plt Count 289 (150-450) th/mm3 [facility] 05/14/18 12:03 Sodium 144 Potassium 3.8 Chloride 108 H Carbon Dioxide 23.3 BUN 18 Creatinine 1.23 Calcium 9.6 Cardiac Enzymes 05/14/18 Range/Units 12:03 Troponin I 0.07 H (0.02-0.05) ng/mL Liver Function 05/14/18 Range/Units 12:03 Total Bilirubin 0.5 (0.2-1.0) mg/dL AST 17 (15-37) U/L ALT 26 (12-78) U/L Alkaline Phosphatase 124 H (45-117) U/L Albumin 3.9 (3.4-5.0) g/dL - Imaging Impressions Chest CTA 05/14/18 11:36 CONCLUSION: 1. No pulmonary embolus identified. 2. Bilateral pleural effusions and atelectasis. 3. Overall appearance of the chest demonstrates a mild interval increase in size of the effusions compared to previous dated 05/03/2018. The remainder is stable. Caprini VTE Risk Assessment Caprini VTE Risk Assessment: Moderate/High Risk (score >= 2) Caprini Risk Assessment Model: Point Value = 1 Point Value = 2 Point Value = 3 Point Value = 5 Age 41-60 Minor surgery BMI > 25 kg/m2 Swollen legs Varicose veins or History of unexplained or recurrent spontaneous Oral contraceptives or hormone replacement Sepsis (< 1 month) Serious lung disease, including pneumonia (< 1 month) Abnormal pulmonary function Acute myocardial infarction Congestive heart failure (< 1 month) History of inflammatory bowel disease Medical patient at bed rest Age 61-74 Arthroscopic surgery Major open surgery (> 45 min) Laparoscopic surgery (> 45 min) Malignancy Confined to bed (> 72 hours) Immobilizing plaster cast Central venous access Age >= 75 History of VTE Family history of VTE Factor V Leiden Prothrombin [id number] Lupus anticoagulant Anticardiolipin antibodies Elevated serum homocysteine Heparin-induced thrombocytopenia Other congenital or acquired thrombophilia Stroke (< 1 month) Elective arthroplasty Hip, pelvis, or leg fracture Acute spinal cord injury (< 1 month) Prophylaxis Regimen: Total Risk Factor Score Risk Level Prophylaxis Regimen 0-1 Low Early ambulation 2 Moderate Order ONE of the following: *Sequential Compression Device (SCD) *Heparin 5000 units SQ BID 3-4 Higher Order ONE of the following medications: *Heparin 5000 units SQ TID *Enoxaparin/Lovenox 40 mg SQ daily (WT < 150 kg, CrCl > 30 mL/min) *Enoxaparin/Lovenox 30 mg SQ daily (WT < 150 kg, CrCl > 10-29 mL/min) *Enoxaparin/Lovenox 30 mg SQ BID (WT < 150 kg, CrCl > 30 mL/min) AND/OR *Sequential Compression Device (SCD) 5 or more Highest Order ONE of the following medications: *Heparin 5000 units SQ TID (Preferred with Epidurals) *Enoxaparin/Lovenox 40 mg SQ daily (WT < 150 kg, CrCl > 30 mL/min) *Enoxaparin/Lovenox 30 mg SQ daily (WT < 150 kg, CrCl > 10-29 mL/min) *Enoxaparin/Lovenox 30 mg SQ BID (WT < 150 kg, CrCl > 30 mL/min) AND *Sequential Compression Device (SCD) Assessment and Plan - Plan 67-year-old white male with a history of metastatic liver cancer from rectal cancer, hypertension, diabetes mellitus, coronary disease presents with 5 week history of worsening shortness of breath with recent right thoracentesis of pleural effusion followed by Dr. Marmolejo 1. Dyspnea likely due to bilateral pleural effusion most likely suspect malignant pleural effusion however will rule out underlying congestive heart failure. Will check 2D echo, continue with Lasix and monitor intake and output. Place the patient on fluid restriction. Obtain an ultrasound the left lung base to evaluate for left thoracentesis. Patient took plavix yesterday and will need to be off next 4 days prior to being able to have thoracentesis performed. Continue oxygen support and obtain a walk fit test. 2. History of metastatic liver cancer from rectal cancerwill obtain a consultation with his oncologist per patient request Dr. Marmolejo. 3. Diabetes mellitus type 2continue Accu-Cheks with sliding scale insulin, hold metformin at this time. 4. Hypertension, chronic essentiallabile blood pressure will provide Vasotec IV as needed 5. Chest pain with atypical history however due to history of coronary disease will obtain serial cardiac enzymes with EKG to rule out acute coronary syndrome. 6. Chronic kidney disease stage IImonitor on diuretics, avoid nephrotoxins 6. DVT prophylaxisLovenox.
[2018-05-14] MEDS ORDERED: Dextrose 50% in Water 50 ML Vial IV.PUSH PRN (16:25)
[2018-05-14] MEDS: Insulin NovoLOG Aspart Correctional Sugar Inj SQ SCH ×2 (17:26→20:51)
[2018-05-14] MEDS: Potassium Chloride 10 MEQ ER Capsule PO SCH (20:50)
--- NOTE | 2018-05-14 20:57 | MB ---
cc: Chema Marmolejo MD, Richard MD DATE: 05/14/2018 REASON FOR CONSULTATION: New diagnosis of metastatic adenocarcinoma of the rectum with increasing shortness of breath and recurrent bilateral pleural effusions. PATIENT PROFILE: The patient is a 67-year-old white male. He is . He has 5 children, 3 sons and 2 daughter. He was born in [place], [place] and has lived in [place] for approximately 11 years. He is retired. 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 He has been on disability since 1995, initially due to a back injury. He stopped smoking 30 years ago and had smoked a pack of cigarettes per day for 25 years. He does not drink currently and alcohol intake in the past was minimal. HISTORY OF PRESENT ILLNESS: The patient is a 67-year-old male who was found to have a prostate cancer approximately 10 years ago and was treated with radioactive seeds. He has had no recurrences and PSAs have historically been less than 2. In 07/2017, he developed rectal bleeding. He was found to have an adenocarcinoma of the rectum and underwent an abdominoperineal resection performed on 09/11/2018. He was found to have a pathologic T3 N0 M0 adenocarcinoma; 13 lymph nodes were negative. The tumor was well differentiated. Margins were negative. The patient was not a candidate for either preoperative or postoperative radiation due to his previous radiation to the prostate. He did not receive adjuvant chemotherapy. He did well until approximately 3 weeks ago when he developed shortness of breath, which was progressive and then became debilitating. He saw his colorectal surgeon, Dr. Lane, and had a chest x-ray which showed an effusion. On 05/03/2018, he had a CAT scan of the thorax, abdomen, and pelvis. He was found to have bilateral pleural effusions, right greater than left. He had pelvic adenopathy and a small amount of retroperitoneal adenopathy. He had what appeared to be 2 liver metastases involving the inferior aspect of the liver. He had on CAT scan and on physical exam recurrent disease in the perineum. His only complaint has been shortness of breath. Weight has been stable. On 05/09/2018, he had a thoracentesis. The cellblock as well as a concentrated preparation was negative for malignancy with mesothelial cells, lymphocytes and rare neutrophils. On 05/10, he had removal of two soft tissue mass in the perineum measuring up to 2.7 cm. This revealed an invasive well-differentiated adenocarcinoma extending to the surgical margins of resection. The tumor was the same as the previous rectal cancer. I had contacted pathology and requested that they do KRAS, NRAS and BRAF. The results should be back in about 10 days. This will help determine whether cetuximab will be part of his regimen. On 05/09/2018, the patient had a BNP of 867 and a troponin of 0.06. Liver function tests have been normal. CEA 2.3. CBC and platelet 05/14: Hemoglobin is 13, white count 7000, platelets are 289,000. The patient was discharged only several days ago. On going home, he states that he still felt short of breath. His shortness of breath worsened and he returned to the hospital. Today, 05/14, the patient had a CT angiogram. No pulmonary embolus was identified. The heart is mildly enlarged. No pericardial effusion is seen. There is no significant hilar or mediastinal adenopathy. The patient has bilateral pleural effusions, slightly larger on the right than in the left. There is diffuse interstitial prominence suggesting congestive heart failure. As per his previous admission, his only complaint is shortness of breath. He also had chest discomfort. He did take a Plavix yesterday and today in the emergency room, was given 1 aspirin today as well as Lovenox 70 mg once. PAST SURGICAL HISTORY: 1. Abdominal perineal resection 09/11/2017 for pathologic T3N0M0 adenocarcinoma of the rectum. 2. 05/10/2018 excision of 2 nodules involving the perineum revealing invasive well-differentiated adenocarcinoma extending to surgical margins of resection. 3. 1991 coronary artery bypass surgery grafting x3. 4. 02/14/1998, patient was found to have a benign frontal brain tumor, which was removed. He does not know the pathology. 5. Approximately 10 years ago biopsy of the prostate identifying prostate cancer treated with radioactive seeds. 6. Right inguinal hernia repair. 7. Carpal tunnel release. 8. Recent [id number] placement. PAST MEDICAL HISTORY: 1. New diagnosis of stage IV rectal cancer with original diagnosis of rectal cancer dating back to 08/2017, which at that time was pathologic T3 N0 M0. 2. Transient ischemic attack in 1996 leading to discovery of a benign brain tumor. 3. Diabetes. 4. Hypertension. 5. Prostate cancer treated with radioactive seeds approximately 10 years ago without reoccurrence. 6. Elevated cholesterol. MEDICATIONS PRIOR TO ADMISSION: 1. Plavix 75 mg a day, which he resumed yesterday. 2. Metformin 1000 mg twice a day. ALLERGIES: NO KNOWN ALLERGIES. FAMILY HISTORY: Noncontributory. Father at 62 of complications of a stroke. Mother at 71, had heart disease. The patient has 2 brothers who are living and a sister who at the age of 54. REVIEW OF SYSTEMS: The patient has glasses: Hearing is good. CARDIOVASCULAR: Notable for increasing shortness of breath and orthopnea and possibly PND. RESPIRATORY: Exertional shortness of breath. GASTROINTESTINAL: Colostomy functioning well. GENITOURINARY: No dysuria or frequency. MUSCULOSKELETAL: No bone pain. NEUROLOGIC: Mild weakness. All other systems unremarkable PHYSICAL EXAMINATION: GENERAL: Reveals a gentleman who is not in acute distress. VITAL SIGNS: Blood pressure is 150/80, respiratory rate is 20, pulse is 80, afebrile, O2 saturation 95% on 2 liters. HEENT: Head is normocephalic. Sclerae and conjunctivae are normal. Oropharynx unremarkable. There is a port in the upper chest. HEART: Regular rhythm. LUNGS: Decreased sounds at the bases. ABDOMEN: Without hepatosplenomegaly. EXTREMITIES: Without edema. No calf swelling. MUSCULOSKELETAL: No bone pain. NEUROLOGIC: No weakness. The patient has a colostomy which is functioning well. ASSESSMENT AND PLAN: The patient has stage IV adenocarcinoma of the rectum. He has metastatic disease to liver, perineum, and intra-abdominal and pelvic adenopathy. His pleural effusions are poorly explained. His CT angiogram suggests the possibility of heart failure and he has had a recent elevation of the BNP at 867 on 05/09/2018. The cytology from the pleural fluid was negative for malignancy. RECOMMENDATIONS: 1. This is a gentleman with a previous history of coronary artery disease. I do not have convincing documentation that the pleural effusions are secondary to the malignancy. 2. The patient has stage IV adenocarcinoma of the rectum. I would like to get treatment started as soon as possible, but need to clarify the cardiac issue. I have sent material for testing for KRAS, NRAS and BRAF to determine whether he is a candidate for cetuximab. I do not necessarily have to wait until these results are back before treating him and will probably treat him with FOLFOX in the immediate future. PLAN: 1. Echocardiogram. 2. Cardiology consult. 3. Would hold aspirin and Plavix, as he will probably need a thoracentesis. I placed orders for cardiology consultation and a BNP. It may be several days before he can have a thoracentesis, but I suspect that this will be the most efficient way of helping his shortness of breath unless it is found to be due to congestive heart failure. MD RUDDY Parks/ , 08:17 PM , 08:55 PM GIOVANNA
[2018-05-15 06:05] LABS: Carbon Dioxide 27.3 meq/L (21.0-32.0); Potassium 3.2 meq/L (3.5-5.1)
--- NOTE | 2018-05-15 08:38 | P.PNONC ---
Subjective Interval history: Patient feels less short of breath today. He states that he is now losing weight. Objective Vital Signs/Intake & Output: Vital Signs 05/14/18 11:22 05/14/18 11:54 05/14/18 14:00 Temperature 97.3 F L Pulse Rate 78 72 78 Respiratory Rate 20 28 H 22 Blood Pressure 159/101 H 141/87 H 153/97 H Pulse Oximetry 97 97 97 05/14/18 14:09 05/14/18 16:47 05/14/18 20:00 Temperature 98 F Pulse Rate 76 73 70 Respiratory Rate 26 H 16 Blood Pressure 151/87 H 137/79 Pulse Oximetry 95 95 05/14/18 21:00 05/14/18 23:00 05/15/18 00:00 Temperature 97.7 F Pulse Rate 74 74 72 Respiratory Rate 16 Blood Pressure 144/94 H Pulse Oximetry 94 L 05/15/18 01:00 05/15/18 02:00 05/15/18 03:00 Temperature Pulse Rate 72 72 68 Respiratory Rate Blood Pressure Pulse Oximetry 05/15/18 04:00 05/15/18 05:00 05/15/18 06:00 Temperature 97.7 F Pulse Rate 62 74 68 Respiratory Rate 17 Blood Pressure 149/98 H Pulse Oximetry 94 L Intake & Output 05/14/18 05/15/18 05/15/18 18:59 06:59 18:59 Output Total 1550 / 1550 Balance -1550 / -1550 Weight 75.75 kg 71.3 kg Output: Urine 1550 / 1550 Other: Date of Last Bowel Movement 05/13/18 Result Diagrams: 05/14/18 12:03 05/15/18 05:14 Laboratory Results: Laboratory Results - last 24 hr 05/14/18 05/14/18 05/14/18 12:03 12:03 12:03 WBC 7.0 RBC 4.39 L Hgb 13.4 Hct 40.4 MCV 92.1 MCH 30.5 MCHC 33.1 RDW 13.7 Plt Count 289 MPV 8.2 Neut % (Auto) 72.3 H Lymph % (Auto) 17.1 [place] % (Auto) 4.4 Eos % (Auto) 5.1 H Baso % (Auto) 1.1 Neut # (Auto) 5.1 Lymph # (Auto) 1.2 [place] # (Auto) 0.3 Eos # (Auto) 0.4 Baso # (Auto) 0.1 WBC Differential . Differential Comment Auto diff final PT 10.4 INR 1.0 APTT 27.4 Sodium 144 Potassium 3.8 Chloride 108 H Carbon Dioxide 23.3 Anion Gap 13 BUN 18 Creatinine 1.23 Estimated GFR 59 L POC Glucose Random Glucose 132 H Calcium 9.6 Total Bilirubin 0.5 AST 17 ALT 26 Alkaline Phosphatase 124 H Troponin I 0.07 H B-Natriuretic Peptide Total Protein 7.4 D Albumin 3.9 05/14/18 05/14/18 05/14/18 17:25 18:02 20:38 WBC RBC Hgb Hct MCV MCH MCHC RDW Plt Count MPV Neut % (Auto) Lymph % (Auto) [place] % (Auto) Eos % (Auto) Baso % (Auto) Neut # (Auto) Lymph # (Auto) [place] # (Auto) Eos # (Auto) Baso # (Auto) WBC Differential Differential Comment PT INR APTT Sodium Potassium Chloride Carbon Dioxide Anion Gap BUN Creatinine Estimated GFR POC Glucose 88 188 H Random Glucose Calcium Total Bilirubin AST ALT Alkaline Phosphatase Troponin I 0.06 H B-Natriuretic Peptide Total Protein Albumin 05/15/18 05/15/18 05/15/18 05:14 05:14 07:42 WBC RBC Hgb Hct MCV MCH MCHC RDW Plt Count MPV Neut % (Auto) Lymph % (Auto) [place] % (Auto) Eos % (Auto) Baso % (Auto) Neut # (Auto) Lymph # (Auto) [place] # (Auto) Eos # (Auto) Baso # (Auto) WBC Differential Differential Comment PT INR APTT Sodium 143 Potassium 3.2 L Chloride 107 Carbon Dioxide 27.3 Anion Gap 9 BUN 18 Creatinine 1.29 Estimated GFR 56 L POC Glucose 142 H Random Glucose 154 H Calcium 9.0 Total Bilirubin AST ALT Alkaline Phosphatase Troponin I B-Natriuretic Peptide 1061 H Total Protein Albumin Imaging Studies: Impressions Chest CTA 05/14/18 11:36 CONCLUSION: 1. No pulmonary embolus identified. 2. Bilateral pleural effusions and atelectasis. 3. Overall appearance of the chest demonstrates a mild interval increase in size of the effusions compared to previous dated 05/03/2018. The remainder is stable. Medications: Active Medications Generic Name Dose Route Start Last Admin Trade Name Freq PRN Reason Stop Dose Admin Furosemide 40 mg 05/14/18 18:00 05/14/18 17:20 Lasix Inj IV.PUSH 40 mg BID@0900,1800 MADHURI Administration Insulin Aspart 0 unit 05/14/18 17:00 05/14/18 20:51 Novolog Insulin Correctional Sugar Inj SQ 1 unit ACHS MADHURI Administration Protocol Potassium Chloride 10 meq 05/14/18 21:00 05/14/18 20:50 Kcl PO 10 meq BID MADHURI Administration Pravastatin Sodium 40 mg 05/14/18 18:00 05/14/18 17:20 Pravachol PO 40 mg DAILY@1800 MADHURI Administration Sodium Chloride 2 ml 05/14/18 21:00 05/14/18 20:52 Ns Flush IV.FLUSH 2 ml BID MADHURI Administration Objective Remarks: GENERAL: Slender and in no acute distress SKIN: Warm and dry. HEAD: Normocephalic. EYES: No scleral icterus. No injection or drainage. NECK: Supple, trachea midline. No JVD or lymphadenopathy. LYMPHATIC: No adenopathy. CARDIOVASCULAR: Regular rate and rhythm without murmurs. RESPIRATORY: Decreased sounds at both bases GASTROINTESTINAL: Colostomy functioning well. Exam of the abdomen benign. EXTREMITIES: No cyanosis, or edema. MUSCULOSKELETAL: Adequate muscle tone. NEUROLOGICAL: No obvious focal deficit. Awake, alert, and oriented x3. PSYCHIATRIC: Appropriate mood and affect; insight and judgment normal. Assessment/Plan - Plan 1: The elevated BNP >1,000 and negative cytology for the pleural fluid suggests the possibility of congestive heart failure. I await the results of the echocardiogram and cardiology consult. In the meantime he is being treated with Lasix. 2: Once the issue of the pleural effusions has been addressed I will be able to proceed with chemotherapy. None of the medicines I use should be cardiotoxic. 3: If the effusions do not respond to current medical management, he may require another thoracentesis. If the effusions are related to heart failure they will hopefully respond to diuretics.
[2018-05-15] MEDS: Potassium Chloride 10 MEQ ER Capsule PO SCH ×2 (09:56→21:23)
--- NOTE | 2018-05-15 11:41 | P.PN ---
Physical Exam Vital signs: Vital Signs 05/14/18 11:54 05/14/18 14:00 05/14/18 14:09 Temperature Pulse Rate 72 78 76 Respiratory Rate 28 H 22 Blood Pressure 141/87 H 153/97 H Pulse Oximetry 97 97 05/14/18 16:47 05/14/18 20:00 05/14/18 21:00 Temperature 98 F Pulse Rate 73 70 74 Respiratory Rate 26 H 16 Blood Pressure 151/87 H 137/79 Pulse Oximetry 95 95 05/14/18 23:00 05/15/18 00:00 05/15/18 01:00 Temperature 97.7 F Pulse Rate 74 72 72 Respiratory Rate 16 Blood Pressure 144/94 H Pulse Oximetry 94 L 05/15/18 02:00 05/15/18 03:00 05/15/18 04:00 Temperature 97.7 F Pulse Rate 72 68 62 Respiratory Rate 17 Blood Pressure 149/98 H Pulse Oximetry 94 L 05/15/18 05:00 05/15/18 06:00 05/15/18 07:00 Temperature Pulse Rate 74 68 67 Respiratory Rate Blood Pressure Pulse Oximetry 05/15/18 08:00 05/15/18 09:00 05/15/18 10:00 Temperature 98.0 F Pulse Rate 68 72 80 Respiratory Rate 18 Blood Pressure 149/96 H Pulse Oximetry 96 05/15/18 11:00 Temperature 98.1 F Pulse Rate 63 Respiratory Rate 16 Blood Pressure 127/83 Pulse Oximetry 95 Intake & Output 05/14/18 05/15/18 05/15/18 18:59 06:59 18:59 Output Total 1550 / 1550 Balance -1550 / -1550 Weight 75.75 kg 71.3 kg Output: Urine 1550 / 1550 Other: Date of Last Bowel Movement 05/13/18 Narrative: Subjective: The patient is in bed family at bedside. Says he still short of breath is saturating well on 2 L nasal cannula. Some cough nonproductive. No nausea vomiting no diarrhea Physical exam: GENERAL: This is a pleasant 67-year-old male well-nourished well-developed white male no acute distress CARDIOVASCULAR: Regular rate and rhythm. RESPIRATORY: No accessory muscle use. Left bibasilar crackles and diminished breath sounds in the right base GASTROINTESTINAL: Abdomen soft, non-tender, nondistended. Hepatic and splenic margins not palpable. Normoactive bowel sounds colostomy viable MUSCULOSKELETAL: Extremities without clubbing, cyanosis, or edema. No obvious deformities. NEUROLOGICAL: Awake and alert to person place time and situation. No obvious cranial nerve deficits. Motor grossly within normal limits. Five out of 5 muscle strength in the arms and legs. Normal speech. PSYCHIATRIC: Appropriate mood and affect; insight and judgment normal. Assessment and Plan 67-year-old white male with a history of metastatic liver cancer from rectal cancer, hypertension, diabetes mellitus, coronary disease presents with 5 week history of worsening shortness of breath with recent right thoracentesis of pleural effusion followed by Dr. Marmolejo 1. Dyspnea likely due to bilateral pleural effusion most likely suspect malignant pleural effusion however will rule out underlying congestive heart failure. Will check 2D echo, continue with Lasix and monitor intake and output. Place the patient on fluid restriction. Obtain an ultrasound the left lung base to evaluate for left thoracentesis. Patient took plavix and will need to be off next 4 days prior to being able to have thoracentesis performed. Continue oxygen support and obtain a walk fit test. 2. History of metastatic liver cancer from rectal cancerwill obtain a consultation with his oncologist per patient request Dr. Marmolejo. 3. Diabetes mellitus type 2continue Accu-Cheks with sliding scale insulin, hold metformin at this time. 4. Hypertension, chronic essentiallabile blood pressure will provide Vasotec IV as needed 5. Chest pain with atypical history however due to history of coronary disease will obtain serial cardiac enzymes with EKG to rule out acute coronary syndrome. 6. Chronic kidney disease stage IImonitor on diuretics, avoid nephrotoxins 6. DVT prophylaxisLovenox. Discussed with the patient, at bedside Results - Labs CBC & Chem 7: 05/14/18 12:03 05/15/18 05:14 Laboratory Results - last 24 hr 05/14/18 05/14/18 05/14/18 12:03 12:03 12:03 WBC 7.0 RBC 4.39 L Hgb 13.4 Hct 40.4 MCV 92.1 MCH 30.5 MCHC 33.1 RDW 13.7 Plt Count 289 MPV 8.2 Neut % (Auto) 72.3 H Lymph % (Auto) 17.1 [place] % (Auto) 4.4 Eos % (Auto) 5.1 H Baso % (Auto) 1.1 Neut # (Auto) 5.1 Lymph # (Auto) 1.2 [place] # (Auto) 0.3 Eos # (Auto) 0.4 Baso # (Auto) 0.1 WBC Differential . Differential Comment Auto diff final PT 10.4 INR 1.0 APTT 27.4 Sodium 144 Potassium 3.8 Chloride 108 H Carbon Dioxide 23.3 Anion Gap 13 BUN 18 Creatinine 1.23 Estimated GFR 59 L POC Glucose Random Glucose 132 H Calcium 9.6 Total Bilirubin 0.5 AST 17 ALT 26 Alkaline Phosphatase 124 H Troponin I 0.07 H B-Natriuretic Peptide Total Protein 7.4 D Albumin 3.9 05/14/18 05/14/18 05/14/18 17:25 18:02 20:38 WBC RBC Hgb Hct MCV MCH MCHC RDW Plt Count MPV Neut % (Auto) Lymph % (Auto) [place] % (Auto) Eos % (Auto) Baso % (Auto) Neut # (Auto) Lymph # (Auto) [place] # (Auto) Eos # (Auto) Baso # (Auto) WBC Differential Differential Comment PT INR APTT Sodium Potassium Chloride Carbon Dioxide Anion Gap BUN Creatinine Estimated GFR POC Glucose 88 188 H Random Glucose Calcium Total Bilirubin AST ALT Alkaline Phosphatase Troponin I 0.06 H B-Natriuretic Peptide Total Protein Albumin 05/15/18 05/15/18 05/15/18 05:14 05:14 07:42 WBC RBC Hgb Hct MCV MCH MCHC RDW Plt Count MPV Neut % (Auto) Lymph % (Auto) [place] % (Auto) Eos % (Auto) Baso % (Auto) Neut # (Auto) Lymph # (Auto) [place] # (Auto) Eos # (Auto) Baso # (Auto) WBC Differential Differential Comment PT INR APTT Sodium 143 Potassium 3.2 L Chloride 107 Carbon Dioxide 27.3 Anion Gap 9 BUN 18 Creatinine 1.29 Estimated GFR 56 L POC Glucose 142 H Random Glucose 154 H Calcium 9.0 Total Bilirubin AST ALT Alkaline Phosphatase Troponin I B-Natriuretic Peptide 1061 H Total Protein Albumin - Imaging Impressions Chest CTA 05/14/18 11:36 CONCLUSION: 1. No pulmonary embolus identified. 2. Bilateral pleural effusions and atelectasis. 3. Overall appearance of the chest demonstrates a mild interval increase in size of the effusions compared to previous dated 05/03/2018. The remainder is stable.
--- NOTE | 2018-05-15 12:51 | MB ---
cc: Mick Pedraza MD DATE: 05/15/2018 HISTORY OF PRESENT ILLNESS: Ethan is a very pleasant 67-year-old gentleman with history of coronary artery disease, status post CABG in [place] in 1991. He has newly diagnosed metastatic colon cancer with metastases to the liver. He presents with pleural effusion, heart failure, elevated BNP. He complains of dyspnea at rest. He otherwise denies any fevers, chills, cough, GI or bleeding, PND, orthopnea, syncope or dizziness. PAST MEDICAL HISTORY: As per this History of Present Illness. He is status post colostomy, CVA, hyperlipidemia, hypertension, prostate cancer, rectal cancer, type 2 diabetes, carpal tunnel repair, resection of the rectum, inguinal hernia repair. ALLERGIES: NONE. MEDICATIONS: In the hospital, buspirone 5 mg t.i.d. p.r.n., Lasix 40 IV b.i.d., insulin, Lactulose, potassium chloride 10 mEq b.i.d., pravastatin 40 mg daily, aspirin 325 given once, Lovenox 70 mg subcutaneously given once. PHYSICAL EXAMINATION: VITAL SIGNS: Temperature 98.1, pulse 80, blood pressure 127/83, respiratory rate 16. Saturations are 95 percent on 2 liters nasal cannula. GENERAL: He is alert and oriented x3, in no acute distress. NECK: Supple. No JVD. No bruit. CARDIOVASCULAR: S1, S2. No murmurs, rubs or gallops. LUNGS: Notable for decreased air movement at the bases, otherwise clear to auscultation bilaterally. ABDOMEN: Soft, nontender, nondistended with positive bowel sounds. EXTREMITIES: No lower extremity edema. LABORATORY DATA: White count 7.0, hemoglobin 13.4, hematocrit 40.4, platelet count 289. INR is 1.0. Sodium 143, potassium 3.2, chloride 107, bicarbonate 27.3, BUN 18, creatinine 1.29. Troponin is 0.06. BNP is 1061. IMAGING STUDIES: CTA of the chest: No pulmonary embolus is identified. Bilateral pleural effusions and atelectasis. Overall appearance of the chest demonstrates a mild interval increase in size of the effusions compared to previous dated 05/03/2018. EKG shows normal sinus rhythm at 73 beats per minute, right bundle branch block, anteroseptal Q-waves, left anterior fascicular block and PVCs. FINAL DIAGNOSES: 1. [id number] myocardial infarction. 2. Decompensated congestive heart failure. 3. Ventricular ectopy. 4. Metastatic colon cancer. 5. Metastases to the liver. 6. Diabetes mellitus. 7. Left anterior fascicular block. 8. Right bundle branch block. 9. Pleural effusions. 10. History of cerebrovascular accident. 11. Hypokalemia. DISCUSSION: The patient has 16-year-old bypass grafts. He has diabetes. His troponin is elevated. He is in decompensated congestive heart failure with dyspnea at rest, [place] Heart Association class III-IV. Therefore, I do think right and left heart catheterization are medically necessary and this is what I have recommended to the patient. The patient is very uncertain whether he wants to proceed with a catheterization. He is very emotional about the situation. A nurse was present at the bedside. I have also discussed this with his and daughter at the bedside. PLAN: The plan is to schedule him for a heart catheterization on 05/16/2018 if he consents. Meanwhile, I agree with diuresis. Follow daily BMP, BNP, magnesium. Follow up 2-D echo. MD AUDREY Law/WINTER , 12:26 PM , 12:50 PM
[2018-05-15] MEDS: Insulin NovoLOG Aspart Correctional Sugar Inj SQ SCH ×4 (13:30→17:48)
--- NOTE | 2018-05-15 14:30 | P.DIET ---
Nutritional Evaluation Type of nutrition evaluation: initial Nutrition screening: Weight Loss > 10 lbs (States UUL=729# prior to August s) Subjective Subjective Comments: Pt, , daughter, and granddaughter in room during visit. Pt denied N/V. Denied trouble chewing/swallow/feeding himself. He stated his appetite is very good right now and he had eaten 100% of his lunch tray. Multiple questions regarding nutrition and chemotherapy. Objective - Diagnosis Malignant Pleural Euffsion, Elevated Troponin - Objective % IBW: 91 (UGO=109#) Body Weight Used for Calculations: Actual (71.3kg) Energy Needs - Lower Range (kCal/kg): 28 Energy Needs - Upper Range (kCal/kg): 32 Lower Limit kCal/kg (kCals): 1,996 Upper Limit kCal/kg (kCals): 2,282 Lower Limit Protein Factor (Grams per Kg): 1.1 Upper Limit Protein Factor (Grams per Kg): 1.4 Lower Protein Needs (Protein): 78 Upper Protein Needs (Protein): 100 Fluid Factor (ml/kg): 30 Estimated Fluid Needs (ml): 2,139 Dietitian Reviewed in Medical Record: Current diet, Curent medications, Intake & Output, Labs, Medical history Diet Order: Oral Diet Intake Amount: Good 75-90% Objective Comments: 09/11/18: Abdominal perineal resection of pathologic adenocarcinoma of rectum 05/10/18: Excision 2 lymph nodes involving perineum Meds: Lasix Labs: AccuCheck 353 BM via colostomy Feeding - Current PO Supplement Current Supplement: Glucerna Shake Current Supplement Flavor: Chocolate Current Frequency of Supplement: Daily Current kCals Provided by Supplement: 220 Current Protein Provided by Supplement: 10 Assessment Assessment: Pt admitted for malignant pleural effusion and elevated troponin. Pt is newly dx w/ metastatic adenocarcinoma of the rectum. He has not started chemotherapy yet per review of EMR. He has a colostomy. Pt states his appetite is currently great and that he's "devouring" all of his meals. Pt acceptable to a daily Glucerna Shake for additional nutrition. Denied N/V. Denied trouble chewing/ swallowing. Pt states prior to "all of this", his usual body wt was 178#. Pt has some visible muscle wasting on his arms. Pt and had multiple questions regarding the possible side effects of chemotherapy in regards to nutritional status. I provided them w/ handouts regarding possible nutrition related side effects and how to manage them. I also provided them w/ high calorie/high protein food lists. Discussed nutritional supplements during chemo. Also provided them w/ the outpatient RD's contact info. Continue current POC. Dietitian following. Recommendations: 1. Continue 2000ADA diet. 2. Glucerna Sam QD. Dietitian to Monitor: Lab values, Glucose level, Supplement acceptance, Diet tolerance, Weight change, PO Intake, Medical course
--- NOTE | 2018-05-15 15:01 | ECG ---
Date Performed: 05/14/2018 Time Performed: 18:05:18 PTAGE: 67 years EKG: Sinus rhythm WITH OCCASIONAL VENTRICULAR PREMATURE COMPLEXES POSSIBLE LEFT ATRIAL ENLARGEMENT RIGHT BUNDLE BRANCH BLOCK LEFT ANTERIOR FASCICULAR BLOCK ABNORMAL ECG NO PREVIOUS TRACING DOCTOR: Brayden Ramirez Interpretating Date/Time 05/15/2018 15:00:03
[2018-05-15] MEDS: Enoxaparin Inj 40 MG/0.4 ML Syringe SQ SCH ×2 (15:11→19:39)
--- NOTE | 2018-05-15 17:12 | ECHRPT ---
Indication: HEART FAILURE CONCLUSIONS Moderately dilated left ventricle. The left ventricular systolic function is severely reduced with an estimated ejection fraction in th e range of 20-25%. Doppler parameters are consistent with a pseudonormal left ventricular filling pattern with concomin ant abnormal relaxation and increased filling pressure (grade 2 diastolic dysfunction). The right ventricular systoilc function is moderately decreased. [id number]-[id number] mitral valve regurgitation. Trace aortic valve regurgitation. There is trace tricuspid valve regurgitation. Trivial pulmonary valve regurgitation. A left sided pleural effusion is present. Trivial pericardial effusion is noted. BP: / HR: Rhythm: Sinus MEASUREMENTS (Male / Female) Normal Values Technical Quality:Good 2D ECHO LV Diastolic Diameter PLAX 6.8 cm 4.2 - 5.9 / 3.9 - 5.3 cm LV Systolic Diameter PLAX 6.4 cm IVS Diastolic Thickness 1.2 cm 0.6 - 1.0 / 0.6 - 0.9 cm LVPW Diastolic Thickness 1.2 cm 0.6 - 1.0 / 0.6 - 0.9 cm LV Relative Wall Thickness 0.4 RV Internal Dim ED PLAX 2.6 cm LVOT Diameter 2.0 cm LA Systolic Diameter LX 5.1 cm 3.0 - 4.0 / 2.7 - 3.8 cm LV Ejection Fraction MOD 4C 22.3 % LV Ejection Fraction 4C AL 21.3 % M-MODE Aortic Root Diameter MM 2.9 cm LA Systolic Diameter MM 5.1 cm LA Ao Ratio MM 1.8 AV Cusp Separation MM 2.2 cm DOPPLER AV Peak Velocity 124.0 cm/s AV Peak Gradient 6.2 mmHg AI Peak Velocity 299.0 cm/s AI Peak Gradient 35.8 mmHg AI Pressure Half Time 895.5 ms MV Area PHT 4.1 cm Mitral E Point Velocity 101.0 cm/s Mitral A Point Velocity 66.6 cm/s Mitral E to A Ratio 1.5 LV E' Lateral Velocity 5.3 cm/s Mitral E to LV E' Lateral Ratio 19.2 LV E' Septal Velocity 4.1 cm/s Mitral E to LV E' Septal Ratio 24.7 TR Peak Velocity 282.0 cm/s TR Peak Gradient 31.8 mmHg Right Atrial Pressure 10.0 mmHg Pulmonary Artery Systolic Pressu 41.8 mmHg Right Ventricular Systolic Press 41.8 mmHg PV Peak Velocity 85.5 cm/s PV Peak Gradient 2.9 mmHg FINDINGS LEFT VENTRICLE Moderately dilated left ventricle. The left ventricular systolic function is severely reduced with an estimated ejection fraction in th e range of 20-25%. There is global left ventricular dysfunction. Mild concentric left ventricular hypertrophy. Doppler parameters are consistent with a pseudonormal left ventricular filling pattern with concomin ant abnormal relaxation and increased filling pressure (grade 2 diastolic dysfunction). RIGHT VENTRICLE The right ventricular systoilc function is moderately decreased. LEFT ATRIUM The left atrial size is moderately dilated. RIGHT ATRIUM The right atrial size is normal. ATRIAL SEPTUM Normal atrial septal thickness AORTA The aortic root and proximal ascending aorta are normal in size on limited imaging. MITRAL VALVE Structurally normal mitral valve. Xexd-[id number]-ynspxman mitral valve regurgitation. No mitral valve stenosis. AORTIC VALVE Trileaflet aortic valve. Trace aortic valve regurgitation. No aortic valve stenosis. TRICUSPID VALVE Structurally normal tricuspid valve. There is trace tricuspid valve regurgitation. The estimated pulmonary arterial pressure is 41.8 mmHg. PULMONARY VALVE Trivial pulmonary valve regurgitation. VESSELS The inferior vena cava was not well visualized. PERICARDIUM A left sided pleural effusion is present. Trivial pericardial effusion is noted. Sancho Moss DO (Electronically Signed) Final Date:15 May 2018 17:11
[2018-05-16] MEDS: Insulin NovoLOG Aspart Correctional Sugar Inj SQ SCH ×4 (00:31→21:53)
[2018-05-16] MEDS: Potassium Chloride 10 MEQ ER Capsule PO SCH ×2 (10:11→21:33)
--- NOTE | 2018-05-16 10:37 | P.PN ---
Physical Exam Vital signs: Vital Signs 05/15/18 11:00 05/15/18 12:00 05/15/18 13:00 Temperature 98.1 F Pulse Rate 63 72 82 Respiratory Rate 16 Blood Pressure 127/83 Pulse Oximetry 95 05/15/18 14:00 05/15/18 15:00 05/15/18 16:00 Temperature 98.2 F Pulse Rate 74 74 83 Respiratory Rate 16 Blood Pressure 151/98 H Pulse Oximetry 95 05/15/18 17:00 05/15/18 18:00 05/15/18 19:00 Temperature 98.4 F Pulse Rate 86 79 82 Respiratory Rate 18 Blood Pressure 153/84 H Pulse Oximetry 95 05/15/18 20:00 05/15/18 21:00 05/15/18 21:01 Temperature Pulse Rate 88 86 Respiratory Rate Blood Pressure Pulse Oximetry 94 L 05/15/18 22:00 05/15/18 23:00 05/16/18 00:00 Temperature 98.2 F Pulse Rate 75 73 70 Respiratory Rate 20 16 Blood Pressure 148/76 H Pulse Oximetry 95 05/16/18 01:00 05/16/18 02:00 05/16/18 03:00 Temperature 98.2 F Pulse Rate 66 69 69 Respiratory Rate 18 Blood Pressure 151/96 H Pulse Oximetry 95 05/16/18 04:00 05/16/18 05:00 05/16/18 06:00 Temperature Pulse Rate 71 72 70 Respiratory Rate 16 Blood Pressure Pulse Oximetry Intake & Output 05/15/18 05/16/18 05/16/18 18:59 06:59 18:59 Intake Total 960 / 960 Output Total 1000 / 1000 Balance -40 / -40 Weight 71 kg Intake: Oral 960 / 960 Output: Urine 1000 / 1000 Narrative: Subjective: The patient is in bed family at bedside. Physical exam: GENERAL: This is a pleasant 67-year-old male well-nourished well-developed white male no acute distress CARDIOVASCULAR: Regular rate and rhythm. RESPIRATORY: No accessory muscle use. Left bibasilar crackles and diminished breath sounds in the right base GASTROINTESTINAL: Abdomen soft, non-tender, nondistended. Hepatic and splenic margins not palpable. Normoactive bowel sounds colostomy viable MUSCULOSKELETAL: Extremities without clubbing, cyanosis, or edema. No obvious deformities. NEUROLOGICAL: Awake and alert to person place time and situation. No obvious cranial nerve deficits. Motor grossly within normal limits. Five out of 5 muscle strength in the arms and legs. Normal speech. PSYCHIATRIC: Appropriate mood and affect; insight and judgment normal. Assessment and Plan 67-year-old white male with a history of metastatic liver cancer from rectal cancer, hypertension, diabetes mellitus, coronary disease presents with 5 week history of worsening shortness of breath with recent right thoracentesis of pleural effusion followed by Dr. Marmolejo 1. Dyspnea likely due to bilateral pleural effusion most likely suspect malignant pleural effusion however will rule out underlying congestive heart failure. Combined systolic and diastolic CHF with exacerbation 2D echo shows low EF of 20-25%, mod dilated left ventricle, global left ventricular dysfunction, grade 2 diastolic dysfunction Patient with cardiomyopathy Continue with Lasix and monitor intake and output. Place the patient on fluid restriction. Obtain an ultrasound the left lung base to evaluate for left thoracentesis. Patient took plavix and will need to be off next 4 days prior to being able to have thoracentesis performed. Continue oxygen support and obtain a walk fit test at [place] Cardiac cath on hold per Dr Pedraza patient is high risk of cardiac cath Continue diuresing for now plan for paracentesis 2. History of metastatic liver cancer from rectal cancerwill obtain a consultation with his oncologist per patient request Dr. Marmolejo. 3. Diabetes mellitus type 2continue Accu-Cheks with sliding scale insulin, hold metformin at this time. 4. Hypertension, chronic essentiallabile blood pressure will provide Vasotec IV as needed 5. Chest pain with atypical history however due to history of coronary disease will obtain serial cardiac enzymes with EKG to rule out acute coronary syndrome. 6. Chronic kidney disease stage IImonitor on diuretics, avoid nephrotoxins 6. DVT prophylaxisLovenox. Discussed with the patient, family at bedside Results - Labs CBC & Chem 7: 05/14/18 12:03 05/15/18 05:14 Laboratory Results - last 24 hr 05/15/18 05/15/18 05/15/18 13:06 16:54 19:14 POC Glucose 353 H 73 279 H 05/15/18 05/16/18 21:24 09:23 POC Glucose 219 H 174 H
[2018-05-16] MEDS ORDERED: LORazepam 0.5 MG Tablet PO PRN (10:41)
[2018-05-16] MEDS: Enoxaparin Inj 40 MG/0.4 ML Syringe SQ SCH (14:01)
--- NOTE | 2018-05-16 14:40 | P.PNCA ---
Subjective Interval history: alert in nad Physical Exam Vital signs: Vital Signs 05/15/18 15:00 05/15/18 16:00 05/15/18 17:00 Temperature 98.2 F Pulse Rate 74 83 86 Respiratory Rate 16 Blood Pressure 151/98 H Pulse Oximetry 95 05/15/18 18:00 05/15/18 19:00 05/15/18 20:00 Temperature 98.4 F Pulse Rate 79 82 88 Respiratory Rate 18 Blood Pressure 153/84 H Pulse Oximetry 95 05/15/18 21:00 05/15/18 21:01 05/15/18 22:00 Temperature Pulse Rate 86 75 Respiratory Rate Blood Pressure Pulse Oximetry 94 L 05/15/18 23:00 05/16/18 00:00 05/16/18 01:00 Temperature 98.2 F Pulse Rate 73 70 66 Respiratory Rate 20 16 Blood Pressure 148/76 H Pulse Oximetry 95 05/16/18 02:00 05/16/18 03:00 05/16/18 04:00 Temperature 98.2 F Pulse Rate 69 69 71 Respiratory Rate 18 16 Blood Pressure 151/96 H Pulse Oximetry 95 05/16/18 05:00 05/16/18 06:00 05/16/18 07:50 Temperature 97.5 F L Pulse Rate 72 70 72 Respiratory Rate 18 Blood Pressure 143/91 H Pulse Oximetry 98 Intake & Output 05/15/18 05/16/18 05/16/18 18:59 06:59 18:59 Intake Total 960 / 960 Output Total 1000 / 1000 Balance -40 / -40 Weight 71 kg Intake: Oral 960 / 960 Output: Urine 1000 / 1000 Assessment and Plan - Assessment (1) Cardiomyopathy Code(s): I42.9 - Cardiomyopathy, unspecified Status: Acute (2) Cardiomyopathy Code(s): I42.9 - Cardiomyopathy, unspecified Status: Acute (3) CHF (congestive heart failure) Code(s): I50.9 - Heart failure, unspecified Status: Acute (4) CAD (coronary artery disease) Code(s): I25.10 - Atherosclerotic heart disease of [place] coronary artery without angina pectoris Status: Acute (5) Pleural effusion Code(s): J90 - Pleural effusion, not elsewhere classified Status: Acute (6) Rectal cancer Code(s): C20 - Malignant neoplasm of rectum Status: Acute (7) Elevated troponin Code(s): R74.8 - Abnormal levels of other serum enzymes Status: Acute - Plan continue diuresis, r and lhc 05/17/18; d/w patient, family and Dr Marmolejo in detail ; indication is cardiac prognosis for chemotherapy and determine if revascularization options exist
[2018-05-17 06:04] LABS: Carbon Dioxide 24.4 meq/L (21.0-32.0); Potassium 3.3 meq/L (3.5-5.1)
[2018-05-17] MEDS ORDERED: Heparin/NS PF Inj 1,000 ML ONE (08:23)
[2018-05-17] MEDS ORDERED: fentaNYL Citrate Inj 100 MCG/2 ML Ampul ONE (08:23)
--- NOTE | 2018-05-17 09:06 | P.PNONC ---
Subjective Interval history: The patient feels better and breathing is easier since he was given Lasix. Objective Vital Signs/Intake & Output: Vital Signs 05/16/18 10:00 05/16/18 11:00 05/16/18 12:00 Temperature 98 F Pulse Rate 72 68 68 Respiratory Rate 18 Blood Pressure 147/98 H Pulse Oximetry 92 L 05/16/18 13:00 05/16/18 14:00 05/16/18 15:00 Temperature 98.9 F Pulse Rate 70 74 91 H Respiratory Rate 18 Blood Pressure 137/86 Pulse Oximetry 93 L 05/16/18 16:00 05/16/18 17:00 05/16/18 18:00 Temperature Pulse Rate 68 78 79 Respiratory Rate Blood Pressure Pulse Oximetry 05/16/18 19:00 05/16/18 20:00 05/16/18 21:00 Temperature 98.1 F Pulse Rate 72 76 74 Respiratory Rate 16 Blood Pressure 143/88 H Pulse Oximetry 97 05/16/18 21:51 05/16/18 22:00 05/16/18 23:00 Temperature 98.6 F Pulse Rate 70 73 Respiratory Rate 2 L 18 Blood Pressure 124/88 Pulse Oximetry 96 05/17/18 00:00 05/17/18 01:00 05/17/18 02:00 Temperature Pulse Rate 70 60 66 Respiratory Rate Blood Pressure Pulse Oximetry 05/17/18 03:00 05/17/18 04:00 05/17/18 05:00 Temperature 98.2 F Pulse Rate 71 62 70 Respiratory Rate 16 Blood Pressure 143/92 H Pulse Oximetry 98 05/17/18 06:00 Temperature Pulse Rate 70 Respiratory Rate Blood Pressure Pulse Oximetry Intake & Output 05/16/18 05/17/18 05/17/18 18:59 06:59 18:59 Intake Total 720 / 720 Output Total 1000 / 1000 Balance -280 / -280 Weight 71.1 kg Intake: Oral 720 / 720 Output: Urine 1000 / 1000 Stool 0 / 0 Result Diagrams: 05/14/18 12:03 05/17/18 05:20 Laboratory Results: Laboratory Results - last 24 hr 05/16/18 05/16/18 05/16/18 09:23 12:04 17:10 Sodium Potassium Chloride Carbon Dioxide Anion Gap BUN Creatinine Estimated GFR POC Glucose 174 H 151 H 280 H Random Glucose Calcium 05/16/18 05/17/1818 21:29 05:20 08:04 Sodium 141 Potassium 3.3 L Chloride 104 Carbon Dioxide 24.4 Anion Gap 13 BUN 24 H Creatinine 1.24 Estimated GFR 58 L POC Glucose 173 H 182 H Random Glucose 171 H Calcium 9.0 Medications: Active Medications Generic Name Dose Route Start Last Admin Trade Name Freq PRN Reason Stop Dose Admin Acetaminophen 650 mg 05/14/18 16:01 05/16/18 10:10 Tylenol PO 650 mg Q4H PRN Administration Temp > 100.4 Buspirone HCl 5 mg 05/14/18 16:23 05/15/18 17:28 Buspar PO 5 mg TID PRN Administration Anxiety Enoxaparin Sodium 40 mg 05/15/18 14:00 05/16/18 14:01 Lovenox Inj SQ 40 mg Q24H MADHURI Administration Furosemide 40 mg 05/14/18 18:00 05/16/18 21:50 Lasix Inj IV.PUSH 40 mg BID@0900,1800 [facility] Administration Insulin Aspart 0 unit 05/14/18 17:00 05/16/18 21:53 Novolog Insulin Correctional Sugar Inj SQ Not Given ACHS [facility] Protocol Potassium Chloride 10 meq 05/14/18 21:00 05/16/18 21:33 Kcl PO 10 meq BID MADHURI Administration Pravastatin Sodium 40 mg 05/14/18 18:00 05/16/18 21:51 Pravachol PO 40 mg DAILY@1800 MADHURI Administration Sodium Chloride 2 ml 05/14/18 21:00 05/16/18 21:33 Ns Flush IV.FLUSH 2 ml BID MADHURI Administration Objective Remarks: GENERAL: Slender and in no acute distress SKIN: Warm and dry. HEAD: Normocephalic. EYES: No scleral icterus. No injection or drainage. NECK: Supple, trachea midline. No JVD or lymphadenopathy. LYMPHATIC: No adenopathy. CARDIOVASCULAR: Regular rate and rhythm without murmurs. RESPIRATORY: Sounds decreased at the bases but appear improved since admission. GASTROINTESTINAL: Abdomen soft, non-tender, nondistended. Colostomy functioning well EXTREMITIES: No cyanosis, or edema. MUSCULOSKELETAL: Adequate muscle tone. NEUROLOGICAL: No obvious focal deficit. Awake, alert, and oriented x3. PSYCHIATRIC: Appropriate mood and affect; insight and judgment normal. Assessment/Plan - Plan 1: It appears that the effusions are due to congestive heart failure. The patient will have a cardiac cath today. Once his heart failure has resolved and he is stable I will be able to go ahead with chemotherapy which can be administered in the outpatient setting. I spoke with Dr. Pedraza yesterday and he will optimize management of the patient's heart failure and once this is accomplished I will begin his chemotherapy which hopefully will be next week. Although he has metastatic rectal cancer, he is not at risk of dying in the immediate future as he has limited disease primarily involving liver and lymph nodes. Responses to chemotherapy can be excellent and durable although his disease is not curable. I told the patient to contact our office at the beginning of next week so we can go ahead with planning his treatment.
--- NOTE | 2018-05-17 09:42 | CATHPROC ---
[employer] HIS Report Study Information Study Number Admission Scheduled Start Study Start [id number] May 14 2018 5:01PM 05/17/2018 May 17 2018 8:14AM [place] [facility] Cardiac Catheterization Admit Source Facility Department Other [facility] - Orientation & Mobility Specialist Physician and Clinical Staff Initial Mick Neff Customs Compliance Analyst Bill He,QUOC Recorder Nerissa Goyal,SINA TECH2 Scrub Noemi Jeff,RT(R) Procedures Performed Procedure Location (Site) Vessel Name Coronary Angiograms LCA Left Coronary Coronary Angiograms RCA Right Coronary Coronary Angiograms PENNINGTON-LAD Left Coronary Coronary Angiograms SVG-OM CIRC Coronary Angiograms Gft. Stump 1 SVG Graft Coronary Angiograms Subclav. Art. (Lft.) Subclavian Art. LV Gram-hand inj. LV LV Ventricle Wire insertion Fem Art (right) Femoral Art Equipment Time Ceiling Insulation Blower Description Size Mfg Part Number Used/Scraped CATHETER, FR5 SWAN RAVEN 08:20 [employer] FR 5 [id number] *[id number] Used MONITOR TRANSDUCER, TRUWAVE [id number] 08:20 [employer] [place] * Used W/STOCKCOCK *[id number] 538-460 *[id number] 538-422 *[id number] [id number] *[id number] [id number] *[id number] 08:20 [employer] BLANKET,WARM AIR CCL * Used *[id number] 08:20 [employer] PACK, CCL CUSTOM * Used *[id number] 08:20 [employer] PACER PEN, SKIN DUAL W/ RULER * Used *[id number] 08:20 [employer] MEDICAL SHEATH, FR5.5 PRELUDE 11CM FR 5.5 Used 038ACT# [id number] 08:20 [employer] MEDICAL WIRE, 3MMJ .035 180CM 180CM Used *[id number] 09:08 [employer] MEDICAL WIRE, EXCHANGE 260CM 3MMJ 260CM Used *[id number] 08:20 [employer] MANIFOLD, 4 PORT * Used *[id number] 08:20 [employer] OMNIPAQUE, 350 MG, 150ML 150ML [id number] Used [id number] 08:20 [employer] MEDICAL SHEATH, FR4 TERUMO (10CM) FR 4 Used *[id number] History: Current Medications Medication Dosage/Unit Route Frequency Last Date/Time Taken PLAVIX Glucophage Statins (any) History: Allergies Allergy Reaction No Known Allergies History: Risk Factors Family History of Hypertension Dyslipidemia Previous ID Previous Heart Failure Premature CAD Yes Yes Yes No No Prior Valve Prior PCI Prior CABG Prior CABGDate Surgery No No Yes 10/29/1991 Cerebrovascular Peripheral Artery Chronic Lung On Dialysis Diabetes Diabetes Therapy Disease Disease Disease No Yes No No Yes Oral History: Symptoms/Diagnosis Selection Items Chest pain MORALES SOB History: Stress Tests Stress or Imaging Studies Performed No History: Other Disease Selection Items CAD Cancer History: Other Current Smoker Method Quit Packs a Day Years Used Pack Years No Cigarettes 30 Years Ago 1 25 25 Labs Hgb (g/dl) Hct (%) WBC (l/cumm) Platelets (thousands) 11.60-17.00 35.00-51.00 4.00-11.00 150.00-450.00 13.4 40.4 7 289 Glucose (mg/dl) BUN (mg/dl) Creatinine (mg/dl) BUN:Creatinine (1:x) 74.00-106.00 7.00-18.00 0.50-1.30 10.00-20.00 171 24 1.2 20 Na (meq/l) K (meq/l) Cl (meq/l) CO2 (mmol/L) Ca (mg/dl) 136.00-145.00 3.50-5.10 98.00-107.00 21.00-32.00 8.50-10.10 143 3.3 104 24.4 9 PT (sec) PTT (sec) INR (PTT:PT) 9.80-11.60 24.30-30.10 0.90-1.10 10.4 27.4 1 Troponin I (ng/ml) CPK-MB (ng/ML) 0.02-0.05 0.50-3.60 0.06 Not Drawn Medication Medication Total Dose (Bolus/Oral) Medication Total Dosage/Unit 1% XYLOCAINE 20 mL FENTANYL 50 mcg VERSED 2 mg Medications (Bolus/Oral) Medication Time Given Dosage/Unit Administered By Reason 1% XYLOCAINE 05/17/2018 8:45:00 AM 20 mL Mick Pedraza 20 mL 1% XYLOCAINE given in lab by Mick Pedraza in Right Groin via Subcutaneous. VERSED 05/17/2018 8:45:23 AM 1 mg Ferlitto, Bill 1 mg VERSED given in lab by Bill He RN in Left Antecubital via Peripheral IV. Ordered by Mick Chan. FENTANYL 05/17/2018 8:45:31 AM 25 mcg Ferlitto, Bill 25 mcg FENTANYL given in lab by Bill He RN in Left Antecubital via Peripheral IV. Ordered by Mick Pedraza. VERSED 05/17/2018 8:51:28 AM 1 mg Ferlitto, Bill 1 mg VERSED given in lab by Bill He RN in Left Antecubital via Peripheral IV. Ordered by Mick Chan. FENTANYL 05/17/2018 8:51:34 AM 25 mcg Ferlitto, Bill 25 mcg FENTANYL given in lab by Bill He RN in Left Antecubital via Peripheral IV. Ordered by Mick Pedraza. Medication (Drip) Medication Time Given Dosage/Unit Concentration/Unit Diluent (ml) Solution IV Solutions 05/17/2018 8:19:04 AM 0 mL (IV) 500 NaCl .9 Patient arrived on IV Solutions in Left Antecubital via Peripheral IV. Pump/Drip Flow = 20 ml/hr usin g NaCl .9. Initial Case Assessment Cardiovascular HR Rhythm NIBP Chest Pain 76 SR 161/92 0 Circulatory - Right Pulses Dorsalis Pedis Femoral 3 3 Scale (0,1,2,3,4,d) Scale (0,1,2,3,4,d) Neurological State Oriented to time-place- Alert Moves all extremities person Respiration - General Respiration Rate SpO2 (%) (B/min) 16 96 Final Case Assessment Cardiovascular HR Rhythm NIBP Chest Pain 58 sr 116/74 0 Circulatory - Right Pulses Dorsalis Pedis Femoral 3 3 Scale (0,1,2,3,4,d) Scale (0,1,2,3,4,d) Neurological State Oriented to time-place- Alert Moves all extremities person Respiration - General Respiration Rate SpO2 (%) (B/min) 16 93 Chronological Log Time Study Chronological Log 8:15:53 Patient arrived via Bed. 8:15:53 Patient Name, D.O.B, / Armband Verified By R.N. 8:15:54 Consent signed by the physician and the patient and verified by the Orientation & Mobility Specialist staff. 8:15:55 Pre-op and post- op instructions given; patient acknowledges understanding of instructions. 8:15:56 Verbal Stimulation=2 Physical Stimulation=2 Airway=2 Respiration=2 TOTAL=8. (0=absent, 1=li mited, 2=present) 8:15:57 Presedation assessment performed by Orientation & Mobility Specialist RN. 8:15:59 Patient has been NPO for More than 6Hrs. 8:15:59 Skin Breakdown-NONE PER PATIENT 8:19:03 A # 20 IV was noted in the Antecubital (left). Grade = 0 8:19:04 Patient arrived on IV Solutions in Left Antecubital via Peripheral IV. Pump/Drip Flow = 20 m l/hr using NaCl .9. 8:19:05 History and physical on the chart or being dictated. Vitals capture started with the following parameters, Patient=Adult, Interval=5 min, Initial Pre aroor=594 mmHg, 8:23:12 Deflation Rate=5 mmHg, Cuff placed on Right Arm 8:24:25 HR=76 bpm, AMHM=629/92 mmhg, SpO2=96 %, Resp=16 B/min Assessment: Initial Case, HR=76 BPM, Rhythm=SR, LNWB=676/92 mmhg, Chest Pain=0 Right Pulses: Richardson Ped=3, Femoral=3 8:24:26 Neurological: State=Alert, Ox3, GRIDER Respiration: Resp=16 B/min, SpO2=96 % 8:28:58 HR=69 bpm, KKRF=471/78 mmhg, SpO2=94.0 %, Resp=12 B/min 8:30:00 Reference ECG taken 8:30:36 Bilateral groins prepped with 2% chlorhexidine, and draped after a 3 minute waiting time. 8:33:50 HR=74 bpm, VMHQ=640/99 mmhg, SpO2=93.0 % 8:34:24 Pressure channel 1 zeroed. 8:38:49 HR=72 bpm, KFPX=393/95 mmhg, SpO2=94 %, Resp=13 B/min 8:42:18 MD arrived. 8:43:51 HR=71 bpm, FMIB=454/95 mmhg, SpO2=94.0 %, Resp=11 B/min Time Out. Correct patient, correct procedure, correct physician, labs, allergies, and equipment verified with corn lab technician 8:44:46 team present. Fire risk assesment completed (see hard stop sheet for coding). Time Out Concu rred by MD and individual staff in procedure. 8:44:59 Case Start 8:45:00 20 mL 1% XYLOCAINE given in lab by Mick Pedraza in Right Groin via Subcutaneous. 8:45:23 1 mg VERSED given in lab by Bill He, QUOC in Left Antecubital via Peripheral IV. Ordere d by Mick Pedraza. 8:45:31 25 mcg FENTANYL given in lab by Bill He, QUOC in Left Antecubital via Peripheral IV. Or dered by Mick Pedraza. 8:47:13 Access site was Right Femoral Artery. 8:47:25 A SHEATH, FR4 TERUMO (10CM) FR 4 was advanced into the Fem Art (right) using the Percutaneou s technique. 8:47:34 Saturation: Site=Ao (Aorta) , O2=90 %, Hgb=13.4 gm/dl, Condition=Condition 1. Used in calc ation. 8:48:52 HR=66 bpm, FECP=323/86 mmhg, SpO2=95.0 % 8:50:17 Access site was Right Femoral Vein. 8:50:53 A SHEATH, FR5.5 PRELUDE 11CM FR 5.5 was advanced into the Fem Vein (right) using the Percuta neous technique. 8:51:28 1 mg VERSED given in lab by Bill He, QUOC in Left Antecubital via Peripheral IV. Ordere d by Mick Pedraza. 8:51:34 25 mcg FENTANYL given in lab by Bill He, QUOC in Left Antecubital via Peripheral IV. Or dered by Mick Pedraza. 8:52:04 A CATHETER, FR5 SWAN RAVEN MONITOR FR 5 was inserted via Fem Vein (right) Recorded Pressure: MPA, HR=57, Condition=Condition 1 8:53:41 (Main Pulmonary Artery) MPA 15/01/11 8:53:55 HR=57 bpm, NSQP=855/63 mmhg, SpO2=89.0 %, Resp=10 B/min 8:54:03 Saturation: Site=PA (Pulmonary Artery) , O2=61 %, Hgb=13.4 gm/dl, Condition=Condition 1. Use d in calculation. Recorded Pressure: RV, HR=57, Condition=Condition 1 8:54:51 (Right Ventricle) RV 18/-2/0 Recorded Pressure: RA, HR=56, Condition=Condition 1 8:55:20 (Right Atrium) RA 2/0/0 8:55:53 Saturation: Site=RA (Right Atrium) , O2=62.2 %, Hgb=13.4 gm/dl, Condition=Condition 1. Used in calculation. 8:56:29 [place] Raven Catheter Removed A JR 4.0 INFINITI CATHETER FR 4 was advanced over a wire. OMNIPAQUE, 350 MG, 150ML 150ML was use d for 8:56:48 injections. Recorded Pressure: LV, HR=55, Condition=Condition 1 8:57:55 (Left Ventricle) LV 111/1/12 8:58:12 The LV was manually injected with 10 cc's and visualized. OMNIPAQUE, 350 MG, 150ML 150ML use d. Recorded Pressure: LV, Ao, HR=59, Condition=Condition 1 8:58:20 (Left Ventricle) LV 104/-2/9, (Aorta) Ao 108/60/79 8:58:46 The RCA was injected and visualized at various angles. OMNIPAQUE, 350 MG, 150ML 150ML used. 8:58:48 HR=56 bpm, LQTJ=343/71 mmhg, SpO2=92.0 % Recorded Pressure: Ao, HR=56, Condition=Condition 1 8:59:01 (Aorta) Ao 110/63/82 8:59:19 The SVG-OM was injected and visualized at various angles. OMNIPAQUE, 350 MG, 150ML 150ML use d. 9:02:49 The Gft. Stump 1 was injected and visualized at various angles. OMNIPAQUE, 350 MG, 150ML 150 ML used. 9:03:49 HR=67 bpm, DIBA=413/78 mmhg, SpO2=90.0 %, Resp=20 B/min 9:07:06 A WIRE, EXCHANGE 260CM 3MMJ 260CM was inserted via Fem Art (right). After removing the current catheter a MPA-2 INFINITI CATHETER FR 4 was advanced over a WIRE, EXC HANGE 260CM 9:07:15 3MMJ 260CM. WIRE REMOVED 9:08:36 The Subclav. Art. (Lft.) was injected and visualized at various angles. OMNIPAQUE, 350 MG, 1 50ML 150ML used. 9:08:48 HR=52 bpm, MCSY=701/89 mmhg, SpO2=93.0 %, Resp=14 B/min 9:09:49 A WIRE, EXCHANGE 260CM 3MMJ 260CM was inserted via Fem Art (right). TO ADVANCE CATHETER, WIR E REMOVED. After removing the current catheter a IM INFINITI CATHETER FR 4 was advanced over a WIRE, EXCHAN GE 260CM 9:12:47 3MMJ 260CM. 9:13:53 HR=60 bpm, ZGTC=916/74 mmhg, SpO2=94.0 % 9:14:35 The PENNINGTON-LAD was injected and visualized at various angles. OMNIPAQUE, 350 MG, 150ML 150ML u sed. 9:15:01 Catheter was removed A JL 5.0 INFINITI CATHETER FR 4 was advanced over a wire. OMNIPAQUE, 350 MG, 150ML 150ML was use d for 9:15:03 injections. 9:16:15 The LCA was injected and visualized at various angles. OMNIPAQUE, 350 MG, 150ML 150ML used. 9:16:42 Catheter was removed 9:17:01 Case End (Physician broke scrub) 9:18:05 Sheath removed; pressure applied to access site. 9:18:52 HR=57 bpm, UIPC=941/77 mmhg, SpO2=93.0 %, Resp=15 B/min 9:23:55 HR=55 bpm, PSPA=318/71 mmhg, SpO2=93.0 % 9:24:08 5.5FR venous Sheath removed; pressure applied to access site. 9:28:54 HR=59 bpm, DHGB=348/72 mmhg, SpO2=92.0 %, Resp=17 B/min 9:33:28 Hemostasis obtained, sterile dressing applied to site. 9:33:51 HR=58 bpm, BDBX=087/74 mmhg, SpO2=93.0 %, Resp=16 B/min Assessment: Final Case, HR=58 BPM, Rhythm=sr, WWQZ=789/74 mmhg, Chest Pain=0 Right Pulses: Richardson Ped=3, Femoral=3 9:35:27 Neurological: State=Alert, Ox3, GRIDER Respiration: Resp=16 B/min, SpO2=93 % 9:36:08 No case complications noted. 9:36:09 Cine recording checked. 9:36:10 Bedside Report will be given. 9:36:15 A Left and Right Heart Cath was performed. 9:39:18 Patient moved to bed. 9:40:41 Patient transported to [facility]. End Study - Contrast Media Used In Study Contrast Total Opened (mL) Total Used (mL) Total Wasted (mL) Omnipaque 100 100 0 End Study - Maximum Contrast Load Max Contrast Load (mL) 296.2 End Study - Radiation Exposure Fluoro Time Fluoro Dose (mGy) Cine Dose (uGym2) (minutes) 2.9 9096 17116 End Study - Sheaths Sheaths Pulled By Sheath Hold Time (min) Noemi Jeff 15 End Study - Patient Disposition Complications Transferred To Interventional Outcome No Telemetry Bed No attempt made
--- NOTE | 2018-05-17 10:03 | MA ---
cc: Mick Pedraza MD DATE: 05/17/2018 PROCEDURE PERFORMED: Right heart catheterization, left heart catheterization, left ventriculography, coronary angiography, saphenous vein angiography, PENNINGTON angiography and left subclavian angiography. INDICATIONS FOR PROCEDURE: Cardiomyopathy, risk stratify for aggressive chemotherapy due to metastatic colon cancer with metastasis to the liver. DESCRIPTION OF PROCEDURE: The patient was brought to the cardiac catheterization laboratory, prepped and draped in the usual sterile fashion. The 10 mL of 1% lidocaine was used to locally anesthetize the right common femoral artery and right common femoral vein area. A 4-Slovenian sheath was placed in the right common femoral artery, 5.5-Slovenian sheath placed in right common femoral vein. Right heart catheterization was performed first with the following findings: Note, I was not able to advance the Taylor-Basilio catheter balloon tip to the wedge position. We did get PA pressures, which were 20/3-11, RV pressure 18/0-0. RA pressure 2/0-0. On room air, the femoral artery sat was 90%, PA sat was 61%, RA sat 62.2%. Cardiac output by Luis Alberto is 4.5 liters per minute. Cardiac index by Luis Alberto is 2.4 liters per meters per squared per minute. Left heart catheterization was then performed with a 4-Slovenian JR5 PENNINGTON and JL5 catheters with the following findings: The LV pressure is 104/0-3. Ejection fraction is approximately 25-30%. There is global hypokinesis. Left ventricle appears to probably be at least moderately enlarged. The right coronary artery is dominant. It is occluded in the proximal segment. The vein graft to the obtuse marginal vessel is widely patent. The obtuse marginal vessel bifurcates into 2 medium to large size branches that are probably 3 mm reference vessel diameters. No significant obstructive disease. They do approach the apex. There is an occluded vein graft at the ostium and the aortic root. The left subclavian artery is extremely tortuous. The PENNINGTON to LAD is widely patent. The PENNINGTON is probably a 5 mm reference vessel diameter. The LAD beyond the graft insertion site approximately 2.75-3 mm in diameter and then it tapers to about a 1.5 mm vessel with 60% stenosis in the very distal segment. The LAD is transapical. There is also septal collaterals to the right PDA that fills the right PDA at a point of occlusion in the proximal segment of the right PDA. The left main coronary artery is calcified, relatively small, probably 3.25 mm in diameter. No significant obstructive disease. The LAD is occluded at the ostium. There are qeld-lx-eigy collaterals to a small 0.5 mm diagonal vessel. Left circumflex vessel has a proximal 60% stenosis. First obtuse marginal vessel is a medium to large vessel with a reference vessel diameter of 2.75-3 mm with a proximal 60% stenosis. There is a subtotally occluded distal posterolateral artery, which trifurcates into 0.5 mm vessels, which have no significant obstructive disease. The distal circumflex and the distal obtuse marginal vessel supply left to right collaterals to the right posterolateral artery/PDA. CONCLUSION: 1. Dilated nonischemic cardiomyopathy with EF 25-30%, global hypokinesis. 2. Severe 3-vessel coronary artery disease in a right dominant system. 3. Two of three grafts patent as detailed above. 4. Euvolemic by right heart catheterization pressures and LVEDP pressure as detailed above. 5. Recommend medical management of coronary artery disease. MD AUDREY Law/JAJA , 09:26 AM , 10:02 AM
[2018-05-17] MEDS ORDERED: Iohexol 350 MG/ML 100 ML Vial (for Cath Lab) IVCONTRAST ONE (10:31)
[2018-05-17] MEDS: Potassium Chloride 10 MEQ ER Capsule PO SCH (12:02)
--- NOTE | 2018-05-17 14:47 | P.PN ---
Physical Exam Vital signs: Vital Signs 05/16/18 15:00 05/16/18 16:00 05/16/18 17:00 Temperature 98.9 F Pulse Rate 91 H 68 78 Respiratory Rate 18 Blood Pressure 137/86 Pulse Oximetry 93 L 05/16/18 18:00 05/16/18 19:00 05/16/18 20:00 Temperature 98.1 F Pulse Rate 79 72 76 Respiratory Rate 16 Blood Pressure 143/88 H Pulse Oximetry 97 05/16/18 21:00 05/16/18 21:51 05/16/18 22:00 Temperature Pulse Rate 74 70 Respiratory Rate 2 L Blood Pressure Pulse Oximetry 05/16/18 23:00 05/17/18 00:00 05/17/18 01:00 Temperature 98.6 F Pulse Rate 73 70 60 Respiratory Rate 18 Blood Pressure 124/88 Pulse Oximetry 96 05/17/18 02:00 05/17/18 03:00 05/17/18 04:00 Temperature 98.2 F Pulse Rate 66 71 62 Respiratory Rate 16 Blood Pressure 143/92 H Pulse Oximetry 98 05/17/18 05:00 05/17/18 06:00 Temperature Pulse Rate 70 70 Respiratory Rate Blood Pressure Pulse Oximetry Intake & Output 05/16/18 05/17/18 05/17/18 18:59 06:59 18:59 Intake Total 720 / 720 Output Total 1000 / 1000 Balance -280 / -280 Weight 71.1 kg Intake: Oral 720 / 720 Output: Urine 1000 / 1000 Stool 0 / 0 Narrative: Subjective: Appears to not acute distress. Went for cardiac cath no stents placed cleared by cardiology for discharge. Also thoracentesis not done as no much fluid to be drained. Patient is off oxygen at this time is ambulating with physical therapy without any problems. We will switch Lasix to p.o. Patient denies any chest pain or shortness of breath at this time. No fever or chills. Feels much better and he wants to go home. Will follow up with his PCP oncology and other consultants. Physical exam: GENERAL: This is a pleasant 67-year-old male well-nourished well-developed white male no acute distress CARDIOVASCULAR: Regular rate and rhythm. RESPIRATORY: No accessory muscle use. Left bibasilar crackles and diminished breath sounds in the right base GASTROINTESTINAL: Abdomen soft, non-tender, nondistended. Hepatic and splenic margins not palpable. Normoactive bowel sounds colostomy viable MUSCULOSKELETAL: Extremities without clubbing, cyanosis, or edema. No obvious deformities. NEUROLOGICAL: Awake and alert to person place time and situation. No obvious cranial nerve deficits. Motor grossly within normal limits. Five out of 5 muscle strength in the arms and legs. Normal speech. PSYCHIATRIC: Appropriate mood and affect; insight and judgment normal. Assessment and Plan 67-year-old white male with a history of metastatic liver cancer from rectal cancer, hypertension, diabetes mellitus, coronary disease presents with 5 week history of worsening shortness of breath with recent right thoracentesis of pleural effusion followed by Dr. Marmolejo 1. Dyspnea likely due to bilateral pleural effusion most likely suspect malignant pleural effusion however will rule out underlying congestive heart failure. Combined systolic and diastolic CHF with exacerbation 2D echo shows low EF of 20-25%, mod dilated left ventricle, global left ventricular dysfunction, grade 2 diastolic dysfunction Patient with cardiomyopathy Continue with Lasix and monitor intake and output. Place the patient on fluid restriction. Obtain an ultrasound the left lung base to evaluate for left thoracentesis. Patient took plavix and will need to be off next 4 days prior to being able to have thoracentesis performed. Continue oxygen support and obtain a walk fit test at DC Status post cardiac cath on 05/17/[address] Pedraza, no stents placed. Continue medical management per cardiology. Continue diuresing Patient does not have much fluid to drain with thoracentesis. We will switch Lasix to p.o. at discharge. 2. History of metastatic liver cancer from rectal cancerwill obtain a consultation with his oncologist per patient request Dr. Marmolejo. 3. Diabetes mellitus type 2continue Accu-Cheks with sliding scale insulin, hold metformin at this time. 4. Hypertension, chronic essentiallabile blood pressure will provide Vasotec IV as needed 5. Chest pain with atypical history however due to history of coronary disease will obtain serial cardiac enzymes with EKG to rule out acute coronary syndrome. 6. Chronic kidney disease stage IImonitor on diuretics, avoid nephrotoxins 6. DVT prophylaxisLovenox. Discussed with the patient, family at bedside Patient improved. Discharge home in stable condition to follow-up with PCP and consultants as outpatient. Results - Labs CBC & Chem 7: 05/14/18 12:03 05/17/18 05:20 Laboratory Results - last 24 hr 05/16/18 05/16/18 05/17/18 17:10 21:29 05:20 Sodium 141 Potassium 3.3 L Chloride 104 Carbon Dioxide 24.4 Anion Gap 13 BUN 24 H Creatinine 1.24 Estimated GFR 58 L POC Glucose 280 H 173 H Random Glucose 171 H Calcium 9.0 05/17/18 05/17/18 08:04 12:18 Sodium Potassium Chloride Carbon Dioxide Anion Gap BUN Creatinine Estimated GFR POC Glucose 182 H 229 H Random Glucose Calcium
[2018-05-17 15:04] VITALS: BP 126/76; PULSE 72; RESP 18; TEMP 97.9; O2SAT 97
--- NOTE | 2018-05-17 16:15 | US ---
EXAM DATE: 05/17/2018 3:54 PM EDT AGE/SEX: 67 years / Male INDICATIONS: Left pleural effusion. CLINICAL DATA: This is the patient's initial encounter. Patient reports that signs and symptoms have been present for 1 month and indicates a pain score of 2/10. MEDICAL/SURGICAL HISTORY: Hypertension. Diabetes mellitus type II. Coronary artery disease. Li edward metastasis. Brain tumor. Cerebral vascular accident. Colostomy in place Hyperlipidemia. Prostate cancer. Rectal cancer. Inguinal hernia repair. Colon resection. CABG. Brain tumor COMPARISON: [facility], CTA PULMONARY W CONTRAST W 3D, 05/14/2018. . MEASUREMENTS: Skin To Parietal Pleura:__1.7 cm Skin To Max Safe Depth:__4.2 cm Estimated Fluid Volume:__125.0 cc Fluid Composition:__simple FINDINGS: No marking was performed. There is not a large enough fluid collection present for safe thoracentesi s. CONCLUSION: Very small simple appearing left pleural effusion. Given the small volume of fluid, no thoracentesis was performed. Electronically signed by: Scott Saenz MD 05/17/2018 4:14 PM EDT
--- NOTE | 2018-05-17 17:21 | P.DS ---
Date of admission: 05/14/18 17:01 Primary care physician: Eleanor May MD Brief History from admission: 67-year-old white male with a history of CAD, TIA, hyperlipidemia, hypertension , prostate cancer, rectal cancer with liver metastasis, diabetes mellitus type 2 presents to the emergency room with a 5 week history of worsening shortness of breath with physical exertion, symptoms orthopnea and PND. Patient was found to have bilateral pleural effusions recently as he was sent in to obtain a rectal biopsy, right-sided thoracentesis, and port placement for future chemotherapy by Dr. Marmolejo. He reports also associated left-sided sharp chest pain in which he rates as a pain intensity of 3 out of 10 with no radiation which lasted about 3 seconds with no recurrence. He reports only minimal dry cough. He has not had any underlying chills or fever. He denies symptoms or lower extremity edema. He reports no changes in his bowel movement and has a functional colostomy. He still continues to have a good appetite with no other complaints at this time. DS: Diagnosis - Discharge Diagnosis (1) CAD (coronary artery disease) Status: Acute (2) CHF (congestive heart failure) Status: Acute (3) Cardiomyopathy Status: Acute (4) Elevated troponin Status: Acute (5) Pleural effusion Status: Acute (6) Rectal cancer Status: Acute DS: Medications - Discharge Medications Prescriptions: furosemide [Lasix] 40 mg PO DAILY #30 tab DS: Summary Hospital Course: 67-year-old white male with a history of metastatic liver cancer from rectal cancer, hypertension, diabetes mellitus, coronary disease presents with 5 week history of worsening shortness of breath with recent right thoracentesis of pleural effusion followed by Dr. Marmolejo 1. Dyspnea likely due to bilateral pleural effusion most likely suspect malignant pleural effusion however will rule out underlying congestive heart failure. Combined systolic and diastolic CHF with exacerbation 2D echo shows low EF of 20-25%, mod dilated left ventricle, global left ventricular dysfunction, grade 2 diastolic dysfunction Patient with cardiomyopathy Continue with Lasix and monitor intake and output. Place the patient on fluid restriction. Obtain an ultrasound the left lung base to evaluate for left thoracentesis. Patient took plavix and will need to be off next 4 days prior to being able to have thoracentesis performed. Continue oxygen support and obtain a walk fit test at DC Status post cardiac cath on 05/17/[address] Pedraza, no stents placed. Continue medical management per cardiology. Continue diuresing Patient does not have much fluid to drain with thoracentesis. We will switch Lasix to p.o. at discharge. 2. History of metastatic liver cancer from rectal cancerwill obtain a consultation with his oncologist per patient request Dr. Marmolejo. 3. Diabetes mellitus type 2continue Accu-Cheks with sliding scale insulin, hold metformin at this time. 4. Hypertension, chronic essentiallabile blood pressure will provide Vasotec IV as needed 5. Chest pain with atypical history however due to history of coronary disease will obtain serial cardiac enzymes with EKG to rule out acute coronary syndrome. 6. Chronic kidney disease stage IImonitor on diuretics, avoid nephrotoxins 6. DVT prophylaxisLovenox. Discussed with the patient, family at bedside Patient improved. Discharge home in stable condition to follow-up with PCP and consultants as outpatient. - Time Spent with Patient Total time spent providing and/or coordinating discharge services: Greater than 30 minutes Exam Vital signs: Vital Signs 05/16/18 18:00 05/16/18 19:00 05/16/18 20:00 Temperature 98.1 F Pulse Rate 79 72 76 Respiratory Rate 16 Blood Pressure 143/88 H Pulse Oximetry 97 05/16/18 21:00 05/16/18 21:51 05/16/18 22:00 Temperature Pulse Rate 74 70 Respiratory Rate 2 L Blood Pressure Pulse Oximetry 05/16/18 23:00 05/17/18 00:00 05/17/18 01:00 Temperature 98.6 F Pulse Rate 73 70 60 Respiratory Rate 18 Blood Pressure 124/88 Pulse Oximetry 96 05/17/18 02:00 05/17/18 03:00 05/17/18 04:00 Temperature 98.2 F Pulse Rate 66 71 62 Respiratory Rate 16 Blood Pressure 143/92 H Pulse Oximetry 98 05/17/18 05:00 05/17/18 06:00 05/17/18 08:00 Temperature Pulse Rate 70 70 Respiratory Rate Blood Pressure Pulse Oximetry 98 05/17/18 15:02 Temperature 97.9 F Pulse Rate 72 Respiratory Rate 18 Blood Pressure 126/76 Pulse Oximetry 97 Intake & Output 05/16/18 05/17/18 05/17/18 18:59 06:59 18:59 Intake Total 720 / 720 Output Total 1000 / 1000 Balance -280 / -280 Weight 71.1 kg Intake: Oral 720 / 720 Output: Urine 1000 / 1000 Stool 0 / 0 Narrative: GENERAL: This is a pleasant 67-year-old male well-nourished well-developed white male no acute distress CARDIOVASCULAR: Regular rate and rhythm. RESPIRATORY: No accessory muscle use. Left bibasilar crackles and diminished breath sounds in the right base GASTROINTESTINAL: Abdomen soft, non-tender, nondistended. Hepatic and splenic margins not palpable. Normoactive bowel sounds colostomy viable MUSCULOSKELETAL: Extremities without clubbing, cyanosis, or edema. No obvious deformities. NEUROLOGICAL: Awake and alert to person place time and situation. No obvious cranial nerve deficits. Motor grossly within normal limits. Five out of 5 muscle strength in the arms and legs. Normal speech. PSYCHIATRIC: Appropriate mood and affect; insight and judgment normal. Results Procedures completed during hospitalization: cardiac cath 05/17/18 Labs on day of discharge: Labs from last 24 hours 05/17/18 05/17/18 05/17/18 12:18 08:04 05:20 Sodium 141 Potassium 3.3 L Chloride 104 Carbon Dioxide 24.4 Anion Gap 13 BUN 24 H Creatinine 1.24 Estimated GFR 58 L POC Glucose 229 H 182 H Random Glucose 171 H Calcium 9.0 05/16/18 21:29 Sodium Potassium Chloride Carbon Dioxide Anion Gap BUN Creatinine Estimated GFR POC Glucose 173 H Random Glucose Calcium - Impressions ITS Impressions Chest CTA 05/14/18 11:36 CONCLUSION: 1. No pulmonary embolus identified. 2. Bilateral pleural effusions and atelectasis. 3. Overall appearance of the chest demonstrates a mild interval increase in size of the effusions compared to previous dated 05/03/2018. The remainder is stable. Chest Ultrasound 05/17/18 00:00 CONCLUSION: Very small simple appearing left pleural effusion. Given the small volume of fluid, no thoracentesis was performed. Discharge Plan - Discharge Disposition Patient Disposition: 01 Discharge Home - Discharge Condition Condition: Stable - Discharge Order Discharge Orders: Discharge Order (Routine); Ordered 05/17/18 Ordered By: Rhonda Azul - Discharge Details Anticipated Discharge Date: 05/17/18 - Physicians Team Primary Care Provider: Eleanor May Attending Provider: Rhonda Azul Other Providers: Hollis Massey MD ; Chema Marmolejo MD ; Mick Pedraza MD ; [employer]
== END 2018-05-17 18:53 | disposition home or self-care (01) ==
LOC: NEPE 11:17 → NEDH 17:01 → HCIS 18:55
PROVIDERS: ADMIT Hospitalist; ATTEND Hospitalist

== ENCOUNTER 2018-07-24 13:17 | Inpatient (IN) ==
[2018-07-24] MEDS ORDERED: Pantoprazole Inj 80 MG in Sodium Chlor 0.9% Inj 35 ML IV.SIG ONE (14:21)
--- NOTE | 2018-07-24 14:23 | P.HP ---
History of Present Illness Primary Care Physician: Eleanor May MD History of Present Illness: 67-year-old white male being admitted for acute GI bleed with presyncope. Direct admit from Dr. Marmolejo's office. Patient was in his usual state of health until he was noted to be fatigued and presyncopal at his oncologist office today. He almost passed out in the driveway. Patient was noted to have black stool over the past few days, and hemoglobin was noted to be 7.2 while his ejection fraction is less than 40%. Discussed case with Dr. Marmolejo, recommended for admission with transfusion of 3 units of blood and EGD. Patient reports having lightheadedness for the past few days. Denies any new chest pain or new shortness of breath. Denies any lower extremity edema. Reports having an "upset stomach", denies vomiting. Reports having one bout of loose stool the past few days. Has a colostomy secondary to history of prostate cancer with colorectal cancer. There is a history of esophageal ulcers. Inpatient Certification: I certify that the inpatient services were ordered in accordance with Medicare regulations governing the order. This includes certification that hospital inpatient services are reasonable and necessary and in the case of services not specified as inpatient-only under 42 CFR 419.22(n), that they are appropriately provided as inpatient services in accordance to with the 2-midnight benchmark under 43 CFR 412.3(e) Estimated Total Length of Stay (Days): 2 Plans for Post Hospital Care: Not yet determined Review of Systems All other systems reviewed negative except as stated in [facility] - History History Provided By: Patient, Family Member - Medical History Medical History: Medical History (Last Reviewed 07/24/18 @ 16:34 by Pancho Kemp MD) Brain tumor CVA (cerebral vascular accident) Colostomy in place Coronary artery disease Hyperlipidemia Hypertension Liver metastasis Port-A-Cath in place Prostate cancer Rectal cancer Type 2 diabetes mellitus - Surgical History Surgical History: Surgical History (Last Reviewed 07/24/18 @ 16:34 by Pancho Kemp MD) H/O carpal tunnel repair H/O resection of rectum S/P inguinal hernia repair S/P triple vessel bypass - Family History Family History: Family History (Last Reviewed 07/24/18 @ 16:34 by Pancho Kemp MD) Mother Family history of acute myocardial infarction Father CVA (cerebral vascular accident) - Social History I have reviewed the patient's Social History: Yes - Tobacco History Second Hand Smoke Exposure: No Smoking Status: Former smoker Tobacco Type: Cigarettes - Alcohol History How Often Do You Have a Drink Containing Alcohol: Never - Substance Use History Substance History: No History of Abuse Medications and Allergies Active Medications: Active Medications Furosemide (Lasix Inj) 20 mg IV.PUSH ONCE ONE Stop: 07/24/18 14:20 Sodium Chloride (Ns Inj) 250 mls @ 15 mls/hr IV.SIG ONCE MADHURI Stop: 07/25/18 07:39 Sodium Chloride (Ns Flush) 2 ml IV.FLUSH BID MADHURI Sodium Chloride (Ns Flush) 2 ml IV.FLUSH PRN PRN PRN Reason: FLUSH AFTER USING IV ACCESS Allergies Allergy/AdvReac Type Severity Reaction Status Date / Time No Known Allergies Allergy Verified 05/14/18 12:00 Home Medications Medication Instructions Recorded Confirmed Type clopidogrel [Plavix] 75 mg PO DAILY 05/09/18 05/14/18 History metformin 1,000 mg PO BID 05/09/18 05/14/18 History simvastatin 20 mg PO QPM 05/09/18 05/14/18 History buspirone 5 mg PO TID PRN 05/14/18 05/14/18 History Exam Narrative: VS: afebrile GENERAL: Lying in bed, awake and alert, no acute distress SKIN: Warm and dry. EYES: Pupils equal and round. No scleral icterus. No injection or drainage. ENT: No nasal bleeding or discharge. CARDIOVASCULAR: Regular rate and rhythm. no murmurs RESPIRATORY: No accessory muscle use. Clear to auscultation. Breath sounds equal bilaterally. GASTROINTESTINAL: Abdomen soft, colostomy in place, no obvious stool Extremities: No clubbing, cyanosis, or edema. No obvious deformities. MUSCULOSKELETAL:adequate muscle bulk and tone for age and habitus NEUROLOGICAL: Awake and alert. No obvious cranial nerve deficits. No facial droop nor slurred speech noted. PSYCHIATRIC: Appropriate mood and affect; insight and judgment normal. Caprini VTE Risk Assessment Caprini VTE Risk Assessment: Moderate/High Risk (score >= 2) VTE Pharmacological Exception Reason: Active bleeding Caprini Risk Assessment Model: Point Value = 1 Point Value = 2 Point Value = 3 Point Value = 5 Age 41-60 Minor surgery BMI > 25 kg/m2 Swollen legs Varicose veins or History of unexplained or recurrent spontaneous Oral contraceptives or hormone replacement Sepsis (< 1 month) Serious lung disease, including pneumonia (< 1 month) Abnormal pulmonary function Acute myocardial infarction Congestive heart failure (< 1 month) History of inflammatory bowel disease Medical patient at bed rest Age 61-74 Arthroscopic surgery Major open surgery (> 45 min) Laparoscopic surgery (> 45 min) Malignancy Confined to bed (> 72 hours) Immobilizing plaster cast Central venous access Age >= 75 History of VTE Family history of VTE Factor V Leiden Prothrombin [id number] Lupus anticoagulant Anticardiolipin antibodies Elevated serum homocysteine Heparin-induced thrombocytopenia Other congenital or acquired thrombophilia Stroke (< 1 month) Elective arthroplasty Hip, pelvis, or leg fracture Acute spinal cord injury (< 1 month) Prophylaxis Regimen: Total Risk Factor Score Risk Level Prophylaxis Regimen 0-1 Low Early ambulation 2 Moderate Order ONE of the following: *Sequential Compression Device (SCD) *Heparin 5000 units SQ BID 3-4 Higher Order ONE of the following medications: *Heparin 5000 units SQ TID *Enoxaparin/Lovenox 40 mg SQ daily (WT < 150 kg, CrCl > 30 mL/min) *Enoxaparin/Lovenox 30 mg SQ daily (WT < 150 kg, CrCl > 10-29 mL/min) *Enoxaparin/Lovenox 30 mg SQ BID (WT < 150 kg, CrCl > 30 mL/min) AND/OR *Sequential Compression Device (SCD) 5 or more Highest Order ONE of the following medications: *Heparin 5000 units SQ TID (Preferred with Epidurals) *Enoxaparin/Lovenox 40 mg SQ daily (WT < 150 kg, CrCl > 30 mL/min) *Enoxaparin/Lovenox 30 mg SQ daily (WT < 150 kg, CrCl > 10-29 mL/min) *Enoxaparin/Lovenox 30 mg SQ BID (WT < 150 kg, CrCl > 30 mL/min) AND *Sequential Compression Device (SCD) Assessment and Plan - Plan 67-year-old white male being admitted for upper GI bleed. Upper GI bleed with anemia Protonix bolus with Protonix drip GI consulted, planning for EGD in a.m. holding blood thinners for now Transfusion plan as below -Avoid NSAIDs Acute anemia Likely acute on chronic GI bleed Discussed case with oncology, will transfuse with 3 units and infuse Lasix x1. Chronic systolic and diastolic heart failure Resume home Lasix. Start -lisinopril, beta-blockers Colorectal cancer Following up with oncology outpatient DM - LDSS w/ accuchecks SCDs for VT prophylaxis given active bleeding risk
[2018-07-24] MEDS ORDERED: Sodium Chlor 0.9% Inj 250 ML IV.SIG SCH (15:00)
--- NOTE | 2018-07-24 15:09 | P.CONGI ---
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 Pt is currently undergoing IV chemotherapy by Dr. Marmolejo, he reports that he had routine labs at the office today and was found to have a hgb of 7.3 which is a drop from 11 last week and was sent to the hospital for direct admission. Pt reports he has been having black stools through his ostomy for the past three days, states no output today but was having to empty his ostomy more frequently yesterday and the day prior. Denies any BRB in the stool. Also reports some nausea which he has had since starting chemotherapy, mild and rarely requires medication. Denies any emesis. Pt reports for the past couple days he has been having severe heartburn that has been waking him up at night and keeping him awake. Has tried Brandy-seltzer and almond milk which provides mild relief. Complaining of pain around his umbilicus, states has been there since his surgery in August denies any change in the characteristics or severity of the pain. Last EGD was over twenty years ago and states findings of esophageal ulcers at that time. Last colonoscopy was prior to perineal resection, he was having rectal bleeding at that time. Denies NSAID use. Takes Plavix for history of CVA. States rare ETOH. Denies smoking, quit 30 years ago. <Rosy Cervantes - Last Filed: 07/24/18 15:09> Review of Systems Respiratory: Reports shortness of breath, Reports shortness of breath with activity Gastrointestinal: Reports abdominal pain, Reports black, tarry stools, Reports change in stools, Reports heartburn, Reports nausea, Denies bright, red blood in stools, Denies vomiting Comments: Colostomy to LLQ <Rosy Cervantes - Last Filed: 07/24/18 15:09> PMFSH - History History Provided By: Patient, Family Member - Medical History Medical History: Medical History (Last Reviewed 05/15/18 @ 09:07 by Amish Grant) Brain tumor CVA (cerebral vascular accident) Colostomy in place Coronary artery disease Hyperlipidemia Hypertension Liver metastasis Port-A-Cath in place Prostate cancer Rectal cancer Type 2 diabetes mellitus - Surgical History Surgical History: Surgical History (Last Updated 05/14/18 @ 20:32 by Denice Soto) H/O carpal tunnel repair H/O resection of rectum S/P inguinal hernia repair S/P triple vessel bypass - Family History Family History: Family History (Last Updated 05/14/18 @ 16:18 by Tran Chance MD) Mother Family history of acute myocardial infarction Father CVA (cerebral vascular accident) - Tobacco History Second Hand Smoke Exposure: No Tobacco Use In Past 30 Days: No Smoking Status: Former smoker Tobacco Type: Cigarettes - Alcohol History How Often Do You Have a Drink Containing Alcohol: Never - Substance Use History Substance History: No History of Abuse <Rosy Cervantes - Last Filed: 07/24/18 15:09> - Medical History Medical History: Medical History (Last Reviewed 05/15/18 @ 09:07 by Amish Grant) Brain tumor CVA (cerebral vascular accident) Colostomy in place Coronary artery disease Hyperlipidemia Hypertension Liver metastasis Port-A-Cath in place Prostate cancer Rectal cancer Type 2 diabetes mellitus - Surgical History Surgical History: Surgical History (Last Updated 05/14/18 @ 20:32 by Denice Soto) H/O carpal tunnel repair H/O resection of rectum S/P inguinal hernia repair S/P triple vessel bypass - Family History Family History: Family History (Last Updated 05/14/18 @ 16:18 by Tran Chance MD) Mother Family history of acute myocardial infarction Father CVA (cerebral vascular accident) <Leta Del Rosario - Last Filed: 07/24/18 16:48> Medications and Allergies Active Medications: Active Medications Sodium Chloride (Ns Inj) 250 mls @ 15 mls/hr IV.SIG ONCE MADHURI Stop: 07/25/18 07:39 Pantoprazole Sodium 80 mg/ (Sodium Chloride) 100 mls @ 10 mls/hr IV.CONT CONT MADHURI Sodium Chloride (Ns Flush) 2 ml IV.FLUSH BID MADHURI Sodium Chloride (Ns Flush) 2 ml IV.FLUSH PRN PRN PRN Reason: FLUSH AFTER USING IV ACCESS <Rosy Cervantes - Last Filed: 07/24/18 15:09> Active Medications: Active Medications Buspirone HCl (Buspar) 5 mg PO TID PRN PRN Reason: Anxiety Carvedilol (Coreg) 3.125 mg PO BID MADHURI Furosemide (Lasix) 40 mg PO DAILY MADHURI Sodium Chloride (Ns Inj) 250 mls @ 15 mls/hr IV.SIG ONCE MADHURI Stop: 07/25/18 07:39 Pantoprazole Sodium 80 mg/ (Sodium Chloride) 100 mls @ 10 mls/hr IV.CONT CONT MADHURI Lisinopril (Prinivil) 2.5 mg PO DAILY MADHURI Non-Formulary Medication (Simvastatin [Simvastatin]) 20 mg PO QPM MADHURI Sodium Chloride (Ns Flush) 2 ml IV.FLUSH BID MADHURI Sodium Chloride (Ns Flush) 2 ml IV.FLUSH PRN PRN PRN Reason: FLUSH AFTER USING IV ACCESS <Leta Del Rosario - Last Filed: 07/24/18 16:48> Allergies Allergy/AdvReac Type Severity Reaction Status Date / Time No Known Allergies Allergy Verified 05/14/18 12:00 Home Medications Medication Instructions Recorded Confirmed Type clopidogrel [Plavix] 75 mg PO DAILY 05/09/18 05/14/18 History metformin 1,000 mg PO BID 05/09/18 05/14/18 History simvastatin 20 mg PO QPM 05/09/18 05/14/18 History buspirone 5 mg PO TID PRN 05/14/18 05/14/18 History Exam Vital signs: Vital Signs 07/24/18 14:27 Temperature 98 F Blood Pressure 108/55 L - Constitutional no acute distress - Routine HEENT Exam Head: Present: normocephalic, atraumatic - Routine Respiratory Exam Absent: accessory muscle use - Routine Abdominal Exam Present: soft, normoactive bowel sounds, ostomy. Absent: tenderness, distended - Routine Skin Exam Present: dry, warm - Routine Neurological Exam Present: alert, oriented X3 <Rosy Cervantes - Last Filed: 07/24/18 15:09> Vital signs: Vital Signs 07/24/18 14:27 Temperature 98 F Blood Pressure 108/55 L Intake & Output 07/23/18 07/24/18 07/24/18 18:59 06:59 18:59 Other: Date of Last Bowel Movement 07/23/18 <Leta Del Rosario - Last Filed: 07/24/18 16:48> Results - Labs Labs: Laboratory Results - last 24 hr 07/24/18 14:50 MTS Gel Crossmatch See Detail <Rosy Cervantes - Last Filed: 07/24/18 15:09> - Labs Labs: Laboratory Results - last 24 hr 07/24/18 14:50 Blood Type O Positive Blood Type Recheck Not needed Antibody Screen Negative MTS Gel Crossmatch See Detail Bld Prod Order Comment <Leta Del Rosario - Last Filed: 07/24/18 16:48> Assessment and Plan - Plan Assessment: - Anemia with reports of melena Pt was sent by Dr. Marmolejo office today, went for IV chemotherapy, routine labs showed hgb of 7.3 pt states was 11 last week. Reports black stools in ostomy for past three days, none today, but had increased ostomy output yesterday and the day before. Also reports severe heartburn that has been waking him up at night, has tried Brandy -seltzer and almond milk which provides mild relief. Complaining of pain around his umbilicus, states has been there since his surgery in August denies any change in the characteristics or severity of the pain. Last EGD was over twenty years ago and states findings of esophageal ulcers at that time. Last colonoscopy was prior to perineal resection, he was having rectal bleeding at that time. Denies NSAID use. Takes Plavix for history of CVA. States rare ETOH. Denies smoking, quit 30 years ago. - Adenocarcinoma of the rectum S/P perineal resection in Aug 2017 with end colostomy - currently undergoing IV chemotherapy Plan: EGD tomorrow Obtain consent NPO after MN Protonix gtt 3 U PRBCs ordered Keep Plavix on hold Antiemetics PRN Continue supportive care Further recommendations to follow Discussed with Dr. Kemp Pt has been seen and examined by myself and Dr. Del Rosario and this note is written on his behalf <Rosy Cervantes - Last Filed: 07/24/18 15:09> - Plan Seen and exmained with [employer], no active bleeding. EGd tomorrow if -ve colonoscopy through colostomy discussed with pt. and family. Monitor labs. Thank you. The exam, history, and the medical decision-making described in the above note were completed with the assistance of the mid-level provider. I reviewed and agree with the findings presented. I attest that I had a [id number] encounter with the patient on the same day, and personally performed and documented my assessment and findings in the medical record. <Leta Del Rosario - Last Filed: 07/24/18 16:48>
[2018-07-24] MEDS ORDERED: Lisinopril 5 MG Tablet PO SCH (16:45)
[2018-07-24] MEDS: Pantoprazole Inj 80 MG in Sodium Chlor 0.9% Inj 100 ML IV.CONT SCH (16:45)
[2018-07-24] MEDS ORDERED: Dextrose 50% in Water 50 ML Vial IV.PUSH PRN (16:56)
[2018-07-24 17:34] LABS: Calcium 8.1 mg/dL (8.5-10.1); Carbon Dioxide 25.6 meq/L (21.0-32.0); Potassium 3.5 meq/L (3.5-5.1)
[2018-07-24] MEDS: Insulin NovoLOG Aspart Correctional Sugar Inj SQ SCH ×2 (20:12→21:09)
[2018-07-24] MEDS: Lisinopril 5 MG Tablet PO SCH (21:09)
[2018-07-25] MEDS: Pantoprazole Inj 80 MG in Sodium Chlor 0.9% Inj 100 ML IV.CONT SCH (03:01)
[2018-07-25 05:50] LABS: Hematocrit 27.7 % (39.0-51.0); Hemoglobin 9.7 gm/dL (13.0-17.0)
[2018-07-25 06:07] LABS: Calcium 8.2 mg/dL (8.5-10.1); Carbon Dioxide 27.4 meq/L (21.0-32.0); Potassium 3.4 meq/L (3.5-5.1)
[2018-07-25 08:08] VITALS: O2SAT 96
[2018-07-25] MEDS: Insulin NovoLOG Aspart Correctional Sugar Inj SQ SCH ×2 (08:22→14:30)
[2018-07-25] MEDS: Lisinopril 5 MG Tablet PO SCH (08:23)
[2018-07-25] MEDS ORDERED: Furosemide 20 MG Tablet PO SCH (09:00)
--- NOTE | 2018-07-25 12:00 | GIPROC ---
[facility] [address] [facility]. [facility] [place], [address] EGD PROCEDURE REPORT EXAM DATE: 07/25/2018 PATIENT NAME: Ethan Dowell MR #: [id number] BIRTHDATE: 1950 ATTENDING: Leta Del Rosario MD ORDER #: [id number] SLACK COOPER: Ted Gerardo Pena, Gabriela, and Hortencia Patel STATUS: inpatient INDICATIONS: The patient is a 67 yr old male here for an EGD due to iron deficiency anemia PROCEDURE PERFORMED: EGD w/ biopsy MEDICATIONS: None and Per Anesthesia. TOPICAL ANESTHETIC: CONSENT: The patient understands the risks and benefits of the procedure and understands that these risks include, but are not limited to: sedation, allergic reaction, infection, perforation and/or bleeding. Alternative means of evaluation and treatment include, among others: physical exam, x-rays, and/or surgical intervention. The patient elects to proceed with this endoscopic procedure. medical equipment was checked for proper function. Hand hygiene and appropriate measures for infection prevention was taken. After the risks, benefits and alternatives of the procedure were thoroughly explained, Informed consent was verified, confirmed and timeout was successfully executed by the treatment team. The patient was anesthetized with topical anesthesia and the Pentax [id number] endoscope was introduced through the mouth and advanced to the second portion of the duodenum. Retroflexed views revealed a hiatal hernia The gastroscope was then slowly withdrawn and removed. ESOPHAGUS: A single non-bleeding, deep, round and clean-based ulcer ranging between 3-7mm in size with surrounding edema was found in the distal esophagus. Biopsies were taken around the ulcer. STOMACH: There was mild gastritis in the gastric antrum. DUODENUM: The duodenal mucosa appeared normal in the bulb and second portion of the duodenum. ADVERSE EVENTS: There were no complications. IMPRESSIONS: 1. Single ulcer ranging between 3-7mm in size was found in the distal esophagus; biopsies were taken 2. There was mild gastritis in the gastric antrum 3. Normal duodenal mucosa in the bulb and second portion of the duodenum 4. Retroflexed views revealed a hiatal hernia RECOMMENDATIONS: 1. Await biopsy results. Biopsy results will not be ready for 7-10 days. If you don't hear from us in two weeks, call our office for biopsy results. 2. Anti-reflux regimen 3. Continue PPI 4. Avoid NSAIDS 5. Colonoscopy PATIENT CONDITION: stable DISPOSITION: Inpatient REPEAT EXAM: Return 2 months EGD pending biopsy results Leta Del Rosario MD eSigned: Leta Del Rosario MD 07/25/2018 11:59 AM cc: Chema Aguilar M.D. PATIENT NAME: Dowell Ethan Franny MR#: [id number]
[2018-07-25 12:46] VITALS: BP 116/72; PULSE 56; RESP 16; TEMP 97.8
--- NOTE | 2018-07-25 14:15 | P.PN ---
Subjective Interval history: Nursing denies any deterioration since last night. Patient is post EGD. A mild distal esophageal ulcer was noted that was not reported to be bleeding on the report. Patient denies any symptoms. Hemoglobin is holding well at 9.7 this morning. Physical Exam Vital signs: Vital Signs 07/24/18 14:27 07/24/18 18:10 07/24/18 18:13 Temperature 98 F 98.8 F 98.8 F Pulse Rate 71 70 Respiratory Rate 17 17 Blood Pressure 108/55 L 128/75 Pulse Oximetry 97 98 07/24/18 18:26 07/24/18 20:00 07/24/18 20:55 Temperature 98.4 F 98.7 F Pulse Rate 69 68 65 Respiratory Rate 16 19 Blood Pressure 123/76 128/83 Pulse Oximetry 98 97 07/24/18 21:40 07/25/18 00:00 07/25/18 00:01 Temperature 98.0 F 98.8 F Pulse Rate 65 62 63 Respiratory Rate 19 17 Blood Pressure 123/65 127/74 Pulse Oximetry 97 95 07/25/18 01:07 07/25/18 01:18 07/25/18 01:34 Temperature 98.6 F 98.6 F Pulse Rate 64 58 L 60 Respiratory Rate 17 17 17 Blood Pressure 128/77 128/75 123/76 Pulse Oximetry 94 L 95 95 07/25/18 04:00 07/25/18 04:02 07/25/18 04:10 Temperature 98.1 F Pulse Rate 60 57 L 50 L Respiratory Rate 17 17 Blood Pressure 139/88 Pulse Oximetry 97 95 07/25/18 08:00 07/25/18 08:07 07/25/18 11:08 Temperature 98.4 F Pulse Rate 58 L 59 L 87 Respiratory Rate 18 Blood Pressure 124/84 Pulse Oximetry 96 07/25/18 11:25 07/25/18 12:20 07/25/18 12:40 Temperature 97.5 F L 97.8 F Pulse Rate 59 L 57 L 56 L Respiratory Rate 14 16 Blood Pressure 120/60 116/72 Pulse Oximetry 96 Intake & Output 07/24/18 07/25/18 07/25/18 18:59 06:59 18:59 Intake Total 515 / 515 1500 / 1500 Output Total 400 / 400 1200 / 1200 Balance 115 / 115 300 / 300 Weight 75 kg Intake: IV 35 / 35 100 / 100 Protonix Inj 80 MG In NS Inj 100 / 100 100 ML @ 10 mls/hr IV.CONT CONT MADHURI Rx#:[id number] Protonix Inj 80 MG In NS Inj 35 35 / 35 ML @ 600 mls/hr IV.SIG BOLUS ONE Rx#:[id number] Oral 480 / 480 200 / 200 Intake (Blood Product) Amt 0 / 0 1200 / 1200 Rbc As-3 Leukoreduced Unit 400 / 400 [id number] Rbc As-3 Leukoreduced Unit 400 / 400 [id number] Rbc As-3 Leukoreduced Unit 0 / 0 400 / 400 [id number] Output: Urine 400 / 400 1200 / 1200 Other: # Voids 1 Date of Last Bowel Movement 07/23/18 07/23/18 07/24/18 Narrative: Heart sounds regular rate rhythm Clear lungs bilaterally, unlabored breathing Good skin color Results - Labs CBC & Chem 7: 07/25/18 04:40 07/25/18 04:40 Laboratory Results - last 24 hr 07/24/18 07/24/18 07/24/18 14:50 16:54 17:25 Hgb Hct Sodium 145 Potassium 3.5 Chloride 110 H Carbon Dioxide 25.6 Anion Gap 9 BUN 25 H Creatinine 1.15 Estimated GFR 63 L POC Glucose 130 H Random Glucose 106 Calcium 8.1 L Blood Type O Positive Blood Type Recheck Not needed Antibody Screen Negative MTS Gel Crossmatch See Detail Bld Prod Order Comment 07/24/18 07/25/18 07/25/18 21:03 04:40 04:40 Hgb 9.7 L D Hct 27.7 L Sodium 145 Potassium 3.4 L Chloride 110 H Carbon Dioxide 27.4 Anion Gap 8 BUN 21 H Creatinine 1.28 Estimated GFR 56 L POC Glucose 156 H Random Glucose 112 H Calcium 8.2 L Blood Type Blood Type Recheck Antibody Screen MTS Gel Crossmatch Bld Prod Order Comment 07/25/18 07/25/18 07:51 12:36 Hgb Hct Sodium Potassium Chloride Carbon Dioxide Anion Gap BUN Creatinine Estimated GFR POC Glucose 150 H 163 H Random Glucose Calcium Blood Type Blood Type Recheck Antibody Screen MTS Gel Crossmatch Bld Prod Order Comment Assessment and Plan - Plan 67-year-old white male being admitted for upper GI bleed. Status post EGD showing an esophageal ulcer that was not reported to be bleeding. Hemoglobin is stable at 3 units of transfusion. Patient was counseled on importance of refraining from all NSAIDs. Biopsy has been taken of the ulcer which can be followed up outpatient. Patient to take PPI daily. Patient has met maximal benefit from hospitalization is clinically stable for discharge. Cleared for discharge from GI standpoint. He was informed to contact his oncologist office for his next follow-up appointment.
--- NOTE | 2018-07-25 22:14 | ECG ---
Date Performed: 07/25/2018 Time Performed: 07:44:22 PTAGE: 67 years EKG: Sinus bradycardia Left axis deviation RBBB with left anterior fascicular block Possible ant eroseptal infarct - age undetermined Abnormal ECG PREVIOUS TRACING : 05/14/2018 18.05 Since the previous tracing, no significant change noted DOCTOR: Dontae Talavera Interpretating Date/Time 07/25/2018 22:12:25
== END 2018-07-25 15:02 | disposition home or self-care (01) ==
LOC: HCIN 13:38
PROVIDERS: ADMIT Hospitalist; ATTEND Hospitalist
PROC: PANENDO (2018-07-25 11:35)